=== PATIENT | female | born 1970 | race Caucasian/White ===

== ENCOUNTER → 2018-03-09 11:21 | Outpatient (CLI) | payer OTHER, SELFPAY | PROVIDERS: Family Provider Physician Assistant; PCP Physician Assistant; Visit Provider Physician Assistant | DX: J02.9 Acute pharyngitis, unspecified (principal); R50.9 Fever, unspecified | CPT/HCPCS: 87070 ==

== ENCOUNTER → 2018-04-15 17:32 | Outpatient (CLI) | payer OTHER, SELFPAY | PROVIDERS: Family Provider Physician Assistant; PCP Physician Assistant; Visit Provider Physician Assistant | DX: N30.01 Acute cystitis with hematuria (principal) | CPT/HCPCS: 87077; 87086; 87186 ==

== ENCOUNTER → 2018-04-25 15:22 | Outpatient (CLI) | payer OTHER, SELFPAY | PROVIDERS: Family Provider Physician Assistant; PCP Physician Assistant; Visit Provider Physician Assistant | DX: N39.0 Urinary tract infection, site not specified (principal) | CPT/HCPCS: 87077; 87086; 87186 ==

== ENCOUNTER 2018-04-29 20:43 | Emergency (ER) | payer OTHER, SELFPAY ==
[2018-04-29 20:44] VITALS: BP 136/103; PULSE 110; RESP 16; TEMP 36.9; O2SAT 96; BMI 35.2
--- NOTE | 2018-04-29 21:20 | ED.FEMALEGU ---
HPI - Female Genitourinary General Chief complaint: Urogenital-Female Stated complaint: Bladder Infection Time Seen by Provider: 04/29/18 21:01 Source: patient Mode of arrival: ambulatory Limitations: no limitations History of Present Illness HPI Narrative: Patient is a 47-year-old female with a known urinary tract infection currently on Levaquin also with a longstanding history of kidney stones stating that she has had blood in her urine and passed a stone earlier today. She also has right-sided flank pain which she states feels like another kidney stone. No fevers. Has been taking her antibiotics. No vaginal bleeding. No changes in bowel. Related Data Home Medications Medication Instructions Recorded Confirmed fluconazole 150 mg tablet 150 mg PO AMINS PRN tab 03/09/18 04/25/18 mupirocin 2 % topical ointment 1 applictn TOPICAL TID PRN gram 03/09/18 04/25/18 triamcinolone acetonide 0.5 % 1 applictn TOPICAL TID PRN gram 03/09/18 04/25/18 topical cream valacyclovir 500 mg tablet 1,000 mg PO BID PRN tab 03/09/18 04/25/18 Previous Rx's Medication Instructions Recorded pantoprazole [Protonix] 40 mg PO QDAY #90 tab 03/02/17 metoprolol succinate [Toprol XL] 12.5 mg PO QDAY #45 ter 11/23/17 levofloxacin 250 mg tablet 250 mg PO DAILY 10 Days #10 tab 04/25/18 hydrocodone-acetaminophen 1 tab PO Q4-6H PRN #14 tab 04/29/18 ondansetron 4 mg PO BID-TID PRN #10 tab 04/29/18 tamsulosin 0.4 mg PO DAILY #14 cap 04/29/18 Allergies Allergy/AdvReac Type Severity Reaction Status Date / Time iodine Allergy Intermediate HIVES - Verified 04/25/18 09:47 CONTRAST esomeprazole AdvReac Mild CONSTIPATIO Verified 04/25/18 09:47 N SMZ/TMP REG STRENGTH 400-800 AdvReac Intermediate PT CAN'T Uncoded 03/09/18 10:27 MG REMEMBER SYMPTOM,BUT KNOWS SHE HAD A REACTION TO IT Review of Systems Constitutional Denies fever(s) ENT Ears, Nose, Mouth, and Throat: Denies vertigo and Denies dizziness Cardiovascular Denies chest pain, Denies syncope and Denies dyspnea Respiratory Denies dyspnea Gastrointestinal Gastrointestinal: Reports abdominal pain, Denies change in bowel habits, Reports nausea and Denies vomiting Genitourinary Reports hematuria, Reports dysuria, Reports urinary hesitancy and Reports urinary urgency Musculoskeletal Denies myalgias and Denies arthralgias Integumentary/Breasts Denies lesions and Denies rash Neurologic Denies vertigo, Denies dizziness and Denies syncope Hematologic/Lymphatic Denies easy bleeding and Denies easy bruising [facility] Medical History Essential hypertension (Chronic 08/03/16) Medullary sponge kidney (Chronic) Hyperlipidemia (Chronic) Sjogren's syndrome (Chronic) Sicca complex (Chronic 02/03/11) Gastroesophageal reflux disease (Chronic 02/03/11) History of basal cell carcinoma (BCC) (Resolved) Surgical History Status post delivery Status post hysterectomy Family History Father Diabetes mellitus Hepatitis C Circulation problem Alcoholism /alcohol abuse Mother History of colon cancer Sister Celiac disease Diverticulitis Migraines Social History Smoking Status: Never smoker second hand exposure: No alcohol intake: current (occasionally) substance use type: does not use Exam Initial Vital Signs Initial Vital Signs: Vital Signs Temperature 98.5 F 04/29/18 20:44 Pulse Rate 110 H 04/29/18 20:44 Respiratory Rate 16 04/29/18 20:44 Blood Pressure 136/103 H 04/29/18 20:44 Pulse Oximetry 96 04/29/18 20:44 Resp Effort & Inspection: normal respiratory effort Auscultation: clear to auscultation bilaterally Cardio Rate: tachycardic Rhythm: regular rhythm GI Inspection: non-distended Palpation: soft, No firm and tender (Left flank) Back/Spine/Pelvis Back: CVA tenderness right Skin Lesions: no lesions Rashes: no rashes Neuro General: alert, awake and oriented x3 Cognition: normal cognition Speech: speech normal Extrem General: normal to inspection and capillary refill normal Psych Appearance: grossly normal and well kempt Course Orders Ordered: ED Orders 04/29/18 20:54 Urine Culture Stat Urine Microscopic Stat 04/29/18 21:10 Basic Metabolic Panel Stat Complete Blood Count AUTO DIFF Stat Discontinued Medications Hydrocodone Bitart/Acetaminophen (Vicodin Prepack) 1 bottle MISC SEEINSTR ONE Stop: 04/29/18 23:27 Last Admin: 04/29/18 23:37 Dose: 1 bottle Lidocaine HCl 6.8 ml/ Sodium (Chloride) 56.8 mls @ 340.8 mls/hr IV NOW ONE Stop: 04/29/18 21:21 Last Infusion: 04/29/18 22:25 Dose: 0 mls/hr Admin: 04/29/18 22:05 Dose: 340.8 mls/hr Ketorolac Tromethamine (Toradol) 30 mg IV NOW ONE Stop: 04/29/18 22:01 Last Admin: 04/29/18 22:06 Dose: 30 mg Ondansetron HCl (Zofran Odt Prepack) 1 bottle MISC SEEINSTR ONE Stop: 04/29/18 23:27 Last Admin: 04/29/18 23:37 Dose: 1 bottle Vital Signs - 8 hr 04/29/18 21:54 04/29/18 23:08 04/29/18 23:54 Temperature 98.5 F Pulse Rate 100 H 99 H 99 H Respiratory Rate 16 17 17 Blood Pressure 136/103 H Blood Pressure [Left Arm] 125/90 H 121/85 H Pulse Oximetry 99 97 97 MDM - Female Genitourinary Lab Data Attestation: I reviewed the patient's lab results. Result diagrams: 04/29/18 21:10 04/29/18 21:10 Lab Results 04/29/18 04/29/18 04/29/18 Range/Units 20:54 21:10 21:10 WBC 3.7 L (4.5-11.0) X10^3/uL RBC 4.23 (4.0-5.2) X10^6/uL Hgb 11.8 L (12.0-16.0) g/dL Hct 35.1 L (36-46) % MCV 83.0 (80-100) fL MCH 27.9 (26-34) PG MCHC 33.7 (30-36) % RDW 13.7 (11.6-14.8) % Plt Count 319 (150-400) X10^3/uL Neut % (Auto) 76.4 H (50-75) % Lymph % (Auto) 13.3 L (25-40) % [place] % (Auto) 8.8 (3-14) % Eos % (Auto) 1.1 L (2-4) % Baso % (Auto) 0.4 (0-2) % Neut # (Auto) 2800 L (7264-3931) /uL Sodium 140 (137-145) mmol/L Potassium 4.4 (3.4-5.1) mmol/L Chloride 104 (98-107) mmol/L Carbon Dioxide 23 (22-32) mmol/L BUN 23 H (7-17) mg/dL Creatinine 1.10 H (0.52-1.04) mg/dL Estimated GFR 53.0 L (>60) mL/min BUN/Creatinine Ratio 20.9 (6-22) Glucose 105 H (70-100) mg/dL Calcium 9.4 (8.4-10.2) mg/dL Urine RBC 10-30/hpf H (0-5/HPF) Urine WBC 10-30/hpf H (0-5/HPF) Urine Bacteria Few (2-10) H (None) Ur Culture Indicated? Specimen cultured Micro UA Comment Not Reportable MDM Narrative Medical decision making narrative: Patient with pansensitive E coli growing from the urine culture from a couple days ago. The Levaquin she is on should be appropriate for this. She also has a history of kidney stones. Her creatinine is fairly unremarkable. She was given IV lidocaine and Toradol here in the emergency department which she states greatly improved her symptoms. She has had to have lithotripsy and stents in the past for kidney stones. I discussed this with the patient however today we will hold on a CT scan. Will send her home with instructions to continue the antibiotics. Will also sent home with pain medication and nausea medication. Informed her that if her symptoms do not improve over the next several days or if they worsen or she develops fevers or cannot take her antibiotics that she does need to return to the emergency department. I feel that the right-sided flank pain is consistent with her kidney stones since the patient states that this feels like kidney stone. Consider pyelonephritis however she was still able to tolerate oral antibiotics. Patient and who was at bedside expressed understanding and agreement with plan. Discharge Plan Departure Patient Disposition: Home Clinical Impression: Renal colic on right side, Urinary tract infection Discharge Date/Time: 04/29/18 23:57 Interventions: ED Discharge Assessment Last Done: 04/29/18 23:56 Instructions: DI for Kidney Stones, DI for Urinary Tract Infection (UTI) Activity Restrictions/Additional Instructions: You need to continue the Levaquin that your prescribed for your urinary tract infection. Take the other medication that you were given this evening as directed. Call your primary care doctor on Wednesday for a follow-up. Return to the emergency department for any new symptoms, worsening symptoms, fevers, inability to urinate, worsening abdominal pain, or any other concerning symptoms. Prescriptions: New hydrocodone-acetaminophen 5-325 mg tablet 1 tab PO Q4-6H PRN (Reason: pain) Qty: 14 RF: 0 tamsulosin 0.4 mg capsule 0.4 mg PO DAILY Qty: 14 RF: 0 ondansetron 4 mg tablet,disintegrating 4 mg PO BID-TID PRN (Reason: nausea and vomiting) Qty: 10 RF: 0 No Action levofloxacin 250 mg tablet 250 mg PO DAILY 10 Days Qty: 10 RF: 0 fluconazole [Diflucan] 150 mg tablet 150 mg PO AMINS PRNRF: 0 mupirocin 2 % ointment 1 applictn Topical TID PRNRF: 0 triamcinolone acetonide 0.5 % cream 1 applictn Topical TID PRNRF: 0 valacyclovir 500 mg tablet 1,000 mg PO BID PRNRF: 0 pantoprazole [Protonix] 40 MG tablet,delayed release (DR/EC) 40 mg PO QDAY Qty: 90 RF: 4 metoprolol succinate [Toprol XL] 25 MG tablet extended release 24 hr 12.5 mg PO QDAY Qty: 45 RF: 1
[2018-04-29 21:34] LABS: Bacteria Urine Few (2-10); Culture Indicated Urine Specimen Cultured; RBC Urine 10-30/HPF (0-5/HPF); WBC Urine 10-30/HPF (0-5/HPF)
[2018-04-29 21:36] LABS: BUN Creatinine Ratio 20.9 (6-22); Blood Urea Nitrogen 23 mg/dL (7-17); Calcium 9.4 mg/dL (8.4-10.2); Carbon Dioxide 23 mmol/L (22-32); Chloride 104 mmol/L (98-107); Glucose 105 mg/dL (70-100); Potassium 4.4 mmol/L (3.4-5.1); Sodium 140 mmol/L (137-145)
[2018-04-29 21:40] LABS: Add Manual Diff / Slide Review NO; Basophils Percent Auto 0.4 % (0-2); Eosinophils Percent Auto 1.1 % (2-4); Hematocrit 35.1 % (36-46); Hemoglobin 11.8 g/dL (12.0-16.0); Lymphocytes Percent Auto 13.3 % (25-40); Mean Corpuscular HGB Conc 33.7 % (30-36); Mean Corpuscular Hemoglobin 27.9 PG (26-34); Monocytes Percent Auto 8.8 % (3-14); Neutrophils Absolute Auto 2800 /uL (3000-5900); Neutrophils Percent Auto 76.4 % (50-75); Platelet Count 319 X10^3/uL (150-400); Red Blood Cell Count 4.23 X10^6/uL (4.0-5.2); Red Cell Distribution Width 13.7 % (11.6-14.8); White Blood Cell Count 3.7 X10^3/uL (4.5-11.0)
[2018-04-29 21:44] LABS: HEMOLYSIS 57 (0-50)
[2018-04-29 21:54] VITALS: BP 125/90; PULSE 100; RESP 16; O2SAT 99
[2018-04-29] MEDS: LIDOCAINE 2% 6.8 ML in SODIUM CHLORIDE 0.9% 50 ML 340.8 ML IV (22:05)
[2018-04-29] MEDS: KETOROLAC 60 MG/2 ML VIAL 30 MG IV (22:06)
[2018-04-29 23:08] VITALS: BP 121/85; PULSE 99; RESP 17; O2SAT 97
[2018-04-29] MEDS: ONDANSETRON 4 MG ODT PREPACK 1 BOTTLE MISC (23:37)
[2018-04-29] MEDS: HYDROCODONE/ACET 5/325 PREPACK 1 BOTTLE MISC (23:37)
[2018-04-29 23:54] VITALS: BP 136/103; PULSE 99; RESP 17; TEMP 36.9; O2SAT 97; BMI 35.2
== END 2018-04-29 23:57 | disposition home or self-care (01) ==
PROVIDERS: Emergency Provider Emergency Medicine; Family Provider Physician Assistant; PCP Physician Assistant
DX: N23 Unspecified renal colic (principal); N39.0 Urinary tract infection, site not specified
CPT/HCPCS: 80048; 81003; 81015; 85025; 87077; 87086; 96374; 96375; 99283; 99284; J1885

== ENCOUNTER → 2018-08-02 07:09 | Outpatient (CLI) | payer OTHER, SELFPAY ==
[2018-08-02 08:24] LABS: BUN Creatinine Ratio 22.5 (6-22); Blood Urea Nitrogen 27 mg/dL (7-17); Calcium 9.6 mg/dL (8.4-10.2); Carbon Dioxide 29 mmol/L (22-32); Chloride 105 mmol/L (98-107); Estimated Glomerular Filt Rate 47.9 mL/min (>60); Glucose 98 mg/dL (70-100); HEMOLYSIS < 15 (0-50); Potassium 4.5 mmol/L (3.4-5.1); Sodium 144 mmol/L (137-145)
== END ==
PROVIDERS: PCP Physician Assistant; Visit Provider Physician Assistant
DX: E78.5 Hyperlipidemia, unspecified (principal); I10 Essential (primary) hypertension; M35.00 Sjogren syndrome, unspecified; Q61.5 Medullary cystic kidney
CPT/HCPCS: 36415; 80048

== ENCOUNTER → 2018-09-08 11:24 | Outpatient (CLI) | payer OTHER, SELFPAY ==
[2018-09-08 12:13] LABS: Hematocrit 40.6 % (36-46); Hemoglobin 13.6 g/dL (12.0-16.0); Mean Corpuscular HGB Conc 33.5 % (30-36); Mean Corpuscular Hemoglobin 28.3 PG (26-34); Mean Corpuscular Volume 84.6 fL (80-100); Platelet Count 161 X10^3/uL (150-400); Red Blood Cell Count 4.79 X10^6/uL (4.0-5.2); Red Cell Distribution Width 13.5 % (11.6-14.8)
[2018-09-08 12:26] LABS: BUN Creatinine Ratio 18.3 (6-22); Blood Urea Nitrogen 22 mg/dL (7-17); Calcium 9.8 mg/dL (8.4-10.2); Carbon Dioxide 27 mmol/L (22-32); Chloride 103 mmol/L (98-107); Estimated Glomerular Filt Rate 47.9 mL/min (>60); Glucose 78 mg/dL (70-100); HEMOLYSIS < 15 (0-50); Potassium 4.8 mmol/L (3.4-5.1); Sodium 144 mmol/L (137-145)
[2018-09-08 14:52] LABS: Protein (Total) Urine Random 8 mg/dL (0-12); Protein Creatinine Ratio Urine 0.09 GRAM/24H
== END ==
PROVIDERS: Family Provider Physician Assistant; PCP Physician Assistant; Visit Provider Student in an Organized Health Care Education/Training Program
DX: N05.9 Unspecified nephritic syndrome with unspecified morphologic changes (principal); D70.9 Neutropenia, unspecified; D63.1 Anemia in chronic kidney disease; R80.9 Proteinuria, unspecified
CPT/HCPCS: 36415; 80048; 82570; 84156; 85027

== ENCOUNTER → 2018-10-11 07:28 | Outpatient (CLI) | payer OTHER, SELFPAY ==
[2018-10-11 09:20] LABS: BUN Creatinine Ratio 19.2 (6-22); Blood Urea Nitrogen 25 mg/dL (7-17); Calcium 9.5 mg/dL (8.4-10.2); Carbon Dioxide 26 mmol/L (22-32); Chloride 107 mmol/L (98-107); Estimated Glomerular Filt Rate 43.7 mL/min (>60); Glucose 96 mg/dL (70-100); HEMOLYSIS < 15 (0-50); Potassium 4.5 mmol/L (3.4-5.1); Sodium 140 mmol/L (137-145)
[2018-10-13 14:16] LABS: Parathyroid Hormone Int 35 pg/mL (14-64)
== END ==
PROVIDERS: Family Provider Physician Assistant; PCP Physician Assistant; Visit Provider Student in an Organized Health Care Education/Training Program
DX: N05.9 Unspecified nephritic syndrome with unspecified morphologic changes (principal); N25.81 Secondary hyperparathyroidism of renal origin
CPT/HCPCS: 36415; 80048; 83970

== ENCOUNTER → 2019-01-06 07:35 | Outpatient (CLI) | payer OTHER, SELFPAY ==
--- NOTE | 2019-01-06 | DI.MG.S_ITS ---
BILATERAL DIGITAL SCREENING MAMMOGRAM 3D/2D WITH CAD: 01/06/2019 CLINICAL: Routine screening. Family history of breast cancer. Comparison is made to exams dated: 12/01/2017 mammogram, 11/27/2016 mammogram, and 11/28/2014 mammogram - [facility]. The tissue of both breasts is heterogeneously dense. This may lower the sensitivity of mammography. Current study was also evaluated with a Computer Aided Detection (CAD) system. No significant masses, calcifications, or other findings are seen in either breast. There has been no significant interval change. IMPRESSION: NEGATIVE There is no mammographic evidence of malignancy. A 1 year screening mammogram is recommended. This exam was interpreted at Station ID: [id number]. NOTE: For mammograms, a report in lay terms will be sent to the patient. Approximately 15% of breast malignancies will not be visualized mammographically. In the management of a palpable breast mass, a negative mammogram must not discourage biopsy of a clinically suspicious lesion. Electronically Signed By: Taye estrada/govind:01/06/2019 09:02:57 letter sent: Normal Exam ACR BI-RADS Category 1: Negative [id number]
== END ==
PROVIDERS: Family Provider Physician Assistant; PCP Physician Assistant; Visit Provider Physician Assistant
DX: Z12.31 Encounter for screening mammogram for malignant neoplasm of breast (principal); Z80.3 Family history of malignant neoplasm of breast
CPT/HCPCS: 77063; 77067

== ENCOUNTER → 2019-02-13 10:18 | Outpatient (CLI) | payer OTHER, SELFPAY ==
--- NOTE | 2019-02-13 10:20 | DI.RAD.S_ITS ---
PROCEDURE: XR LUMBAR SPINE MIN 4V INDICATIONS: left sided low back pain with sciatica; hx of Sjorgrens synd TECHNIQUE: 3 views of the lumbar spine were acquired. COMPARISON: [facility], CT, KIDNEY/ URETER/BLADDER, 12/11/2015, 10:13. [facility], CR, KUB XRAY (1 VIEW ABDOMEN), 09/08/2016, 11:05. FINDINGS: Bones: No fracture or focal osseous destruction. Grade 1 anterolisthesis of L4 on L5 and grade 1/2 anterolisthesis L5 on S1. Multilevel degenerative endplate sclerosis and spurring. Diffuse facet arthropathy. Straightening of the normal lordotic curvature. Severe narrowing of the L5-S1 disc space. Lucency projects in the region of the L5 pars interarticularis. Bilateral renal calculi as before IMPRESSION: Probable L5 pars defects, chronic. Grade 1/2 anterolisthesis of L5 on S1 Severe L5-S1 disc degeneration. Diffuse facet arthropathy Dictated by: Myles Deleon M.D. on 02/13/2019 at 13:59 Approved by: Myles Deleon M.D. on 02/13/2019 at 14:02
--- NOTE | 2019-02-13 10:20 | DI.RAD.S_ITS ---
PROCEDURE: XR HIP W PEL IF DONE LT 2V INDICATIONS: left sided low back pain with sciatica; hx of Sjorgrens synd TECHNIQUE: AP pelvis with lateral view(s) of the left hip(s). COMPARISON: None. FINDINGS: Bones: No fractures or dislocations. Pelvic ring appears intact. No suspicious bony lesions. The joint spaces appear grossly preserved. Soft tissues: The visualized bowel gas pattern is normal. No suspicious soft tissue calcifications. IMPRESSION: Overall, unremarkable examination as above. Dictated by: Myles Deleon M.D. on 02/13/2019 at 13:48 Approved by: Myles Deleon M.D. on 02/13/2019 at 13:50
== END ==
PROVIDERS: Family Provider Physician Assistant; PCP Physician Assistant; Visit Provider Physician Assistant
DX: M51.17 Intervertebral disc disorders with radiculopathy, lumbosacral region (principal); M47.26 Other spondylosis with radiculopathy, lumbar region; M43.17 Spondylolisthesis, lumbosacral region; M35.00 Sjogren syndrome, unspecified; N25.0 Renal osteodystrophy; M25.552 Pain in left hip; N20.0 Calculus of kidney
CPT/HCPCS: 72100; 73502

== ENCOUNTER → 2019-02-17 07:20 | Outpatient (CLI) | payer OTHER, SELFPAY ==
[2019-02-17 08:40] LABS: Hemoglobin 13.5 g/dL (12.0-16.0)
[2019-02-17 08:44] LABS: HEMOLYSIS < 15 (0-50); Iron 56 ug/dL (37-170)
[2019-02-17 08:46] LABS: Creatinine Urine Random 115.5 mg/dL; Protein (Total) Urine Random 9 mg/dL (0-12); Protein Creatinine Ratio Urine 0.07 GRAM/24H
[2019-02-17 08:47] LABS: BUN Creatinine Ratio 22.3 (6-22); Blood Urea Nitrogen 29 mg/dL (7-17); Calcium 9.5 mg/dL (8.4-10.2); Carbon Dioxide 28 mmol/L (22-32); Chloride 105 mmol/L (98-107); Estimated Glomerular Filt Rate 43.5 mL/min (>60); Glucose 106 mg/dL (70-100); HEMOLYSIS < 15 (0-50); Potassium 4.2 mmol/L (3.4-5.1); Sodium 140 mmol/L (137-145)
[2019-02-17 08:55] LABS: Percent Iron Saturation 17 % (15-50); Total Iron Binding Capacity 322 ug/dL (265-497); Transferrin 246 mg/dL (206-381)
[2019-02-17 09:19] LABS: Ferritin 59.3 ng/mL (6.27-137)
[2019-02-21 14:01] LABS: Parathyroid Hormone Int 43 pg/mL (14-64)
== END ==
PROVIDERS: PCP Physician Assistant; Visit Provider Student in an Organized Health Care Education/Training Program
DX: N05.9 Unspecified nephritic syndrome with unspecified morphologic changes (principal); D50.0 Iron deficiency anemia secondary to blood loss (chronic); E78.5 Hyperlipidemia, unspecified; N25.81 Secondary hyperparathyroidism of renal origin; R80.9 Proteinuria, unspecified
CPT/HCPCS: 36415; 80048; 82570; 82728; 83540; 83550; 83970; 84156; 85014; 85018

== ENCOUNTER → 2019-02-22 07:14 | Outpatient (CLI) | payer OTHER, SELFPAY ==
--- NOTE | 2019-02-22 07:16 | DI.MRI.S_ITS ---
PROCEDURE: MR LUMBAR SPINE WO CON INDICATIONS: Left sided low back pain w/sciatica; Abnormal xray LS spine TECHNIQUE: Noncontrast sagittal T1 spin echo and T2 fast echo, sagittal STIR, axial T1 and T2 fast spin echo through the lumbar spine. In cases with scoliosis, additional coronal T2 fast spin echo may be performed. COMPARISON: [facility], , XR LUMBAR SPINE MIN 4V, 02/13/2019, 10:24. FINDINGS: Image quality: Excellent. Alignment and Curvature: There is grade 1 L5-S1 spondylolisthesis secondary to bilateral L5 pars interarticularis defects. Bone Marrow: Reactive endplate change is noted adjacent to the L5-S1 disc. No acute vertebral body compression fractures. Spinal Cord: Conus medullaris terminates at the T12-L1 disc level. Visualized cord demonstrates normal signal and size. Paraspinous Soft Tissues: No paravertebral masses. L1-L2: Normal appearance. L2-L3: Normal appearance. L3-L4: Slight loss of disc signal. Minimal, diffuse disc bulge. No central stenosis. No neural foraminal narrowing. No neural impingement. L4-L5: Slight loss of disc signal. Minimal, diffuse disc bulge. Mild right and wdxm-gk-eygwnfnf left facet hypertrophy. No central stenosis. No neural foraminal narrowing. No neural impingement. L5-S1: Loss of disc signal and height. Minimal, diffuse disc bulge. No central stenosis. Moderate right and yylqhzyn-gh-xtzovv left neural foraminal narrowing with slight compression of the exiting left L5 nerve root. IMPRESSION: 1. Grade 1 L5-S1 isthmic spondylolisthesis. 2. Moderate L5-S1 degenerative disc disease. Mild L3-L4 and L4-L5 degenerative disc disease. 3. L4-L5 facet arthropathy. 4. No central stenosis. 5. Moderate right and mfhntcyw-yp-eelusb left L5-S1 neural foraminal narrowing. 6. Slight compression of the exiting left L5 nerve root secondary to left L5-S1 neural foraminal narrowing. Please correlate with clinical data. Dictated by: Faustina Trujillo MD, PhD on 02/22/2019 at 10:33 Approved by: Faustina Trujillo MD, PhD on 02/22/2019 at 10:38
== END ==
PROVIDERS: PCP Physician Assistant; Visit Provider Physician Assistant
DX: M51.16 Intervertebral disc disorders with radiculopathy, lumbar region (principal); M51.17 Intervertebral disc disorders with radiculopathy, lumbosacral region; M47.26 Other spondylosis with radiculopathy, lumbar region; M47.27 Other spondylosis with radiculopathy, lumbosacral region; M43.17 Spondylolisthesis, lumbosacral region; R93.7 Abnormal findings on diagnostic imaging of other parts of musculoskeletal system
CPT/HCPCS: 72148

== ENCOUNTER → 2019-05-19 07:30 | Outpatient (CLI) | payer OTHER, SELFPAY ==
[2019-05-19 08:05] LABS: Hematocrit 39.6 % (36-46); Hemoglobin 13.3 g/dL (12.0-16.0)
[2019-05-19 08:18] LABS: BUN Creatinine Ratio 22.5 (6-22); Blood Urea Nitrogen 27 mg/dL (7-17); Calcium 9.3 mg/dL (8.4-10.2); Carbon Dioxide 27 mmol/L (22-32); Chloride 106 mmol/L (98-107); Estimated Glomerular Filt Rate 47.7 mL/min (>60); Glucose 105 mg/dL (70-100); HEMOLYSIS < 15 (0-50); Potassium 4.7 mmol/L (3.4-5.1); Sodium 139 mmol/L (137-145)
[2019-05-23 17:33] LABS: Parathyroid Hormone Int 58 pg/mL (14-64)
== END ==
PROVIDERS: PCP Physician Assistant; Visit Provider Student in an Organized Health Care Education/Training Program
DX: N05.9 Unspecified nephritic syndrome with unspecified morphologic changes (principal); D64.9 Anemia, unspecified; N25.81 Secondary hyperparathyroidism of renal origin
CPT/HCPCS: 36415; 80048; 83970; 85014; 85018

== ENCOUNTER → 2019-06-05 16:03 | Outpatient (CLI) | payer OTHER, SELFPAY ==
[2019-06-05 17:10] LABS: Hematocrit 40.7 % (36-46); Hemoglobin 13.5 g/dL (12.0-16.0); Mean Corpuscular HGB Conc 33.2 % (30-36); Mean Corpuscular Hemoglobin 28.2 PG (26-34); Mean Corpuscular Volume 84.9 fL (80-100); Platelet Count 194 X10^3/uL (150-400); Red Cell Distribution Width 14.2 % (11.6-14.8); White Blood Cell Count 2.8 X10^3/uL (4.5-11.0)
[2019-06-05 17:58] LABS: BUN Creatinine Ratio 22.3 (6-22); Blood Urea Nitrogen 29 mg/dL (7-17); Calcium 9.6 mg/dL (8.4-10.2); Carbon Dioxide 28 mmol/L (22-32); Chloride 102 mmol/L (98-107); Estimated Glomerular Filt Rate 43.5 mL/min (>60); Glucose 86 mg/dL (70-100); HEMOLYSIS < 15 (0-50); Potassium 5.3 mmol/L (3.4-5.1); Sodium 139 mmol/L (137-145)
== END ==
PROVIDERS: PCP Physician Assistant; Visit Provider Orthopaedic Surgery
DX: Z01.818 Encounter for other preprocedural examination (principal)
CPT/HCPCS: 36415; 80048; 85027; 93005; 93010

== ENCOUNTER 2019-06-30 06:35 | Inpatient (IN) | payer OTHER, SELFPAY ==
[2019-06-19 12:51] VITALS: BMI 36.5
[2019-06-30] VITALS (19 sets, daily range): BP systolic 121–142; BP diastolic 71–96; PULSE 81–113; RESP 12–18; TEMP 35.7–36.6; O2SAT 95–100; BMI 36.7
--- NOTE | 2019-06-30 | DI.RAD.S_ITS ---
PROCEDURE: XR LUMBAR SPINE 2-3V INDICATIONS: L5-S1 TLIF TECHNIQUE: 2 views of the lumbar spine were acquired. COMPARISON: [facility], CR, XR LUMBAR SPINE 2 OR 3 VIEWS, 03/01/2019, 13:53. [facility], MR, MR LUMBAR SPINE WO CON, 02/22/2019, 7:34. [facility], CR, XR LUMBAR SPINE MIN 4V, 02/13/2019, 10:24. FINDINGS: AP and lateral intraoperative fluoroscopic radiographs document the placement of L5-S1 posterior lumbar spinal fusion hardware with transpedicular screws and bilateral stabilizing rods. There is an intervertebral disc spacer device at L5-S1. There is persistent residual anterolisthesis of L5 on S1, similar to comparison exam 03/01/19. IMPRESSION: Intraoperative fluoroscopic radiographs documenting the placement of L5-S1 posterior lumbar spinal fusion hardware and L5-S1 intervertebral disc spacer device. Residual anterolisthesis of L5 on S1 noted. Please see separately dictated operative report for procedural details. Dictated by: Jason Johnson M.D. on 06/30/2019 at 14:40 Approved by: Jason Johnson M.D. on 06/30/2019 at 14:47
--- NOTE | 2019-06-30 07:15 | PM.PREOP ---
Pre-operative Note Interval Note History & Physical reviewed/Exam performed by Physician: Yes Changes to H&P: No
[2019-06-30] MEDS: LACTATED RINGERS 1,000 ML 42 ML IV ×2 (07:24→09:54)
[2019-06-30] MEDS: CEFAZOLIN 2 GM/100 ML FROZ.PIGGY IV ×2 (07:45→16:03)
--- NOTE | 2019-06-30 08:20 | SUR.OPER ---
Prone on spine table, head in foam head support, padded chest and pelvic supports, gel pad at knees, lower legs supported by pillows; nipples, genitalia and toes free of pressure, arms secured on foam padded arm boards at <90 degrees abduction. Tape over blanket at thigh secured to table.
[2019-06-30] MEDS: THROMBIN (RECOMBINANT) 5,000 UNIT VIAL 5000 UNIT TOP (08:26)
[2019-06-30] MEDS: VANCOMYCIN 1,000 MG VIAL 1000 MG TOP (08:27)
[2019-06-30] MEDS: BUPIVACAINE 0.5% (PF) 4 ML, MORPHINE-PF 4 MG, BUTORPHANOL 1 MG, fentaNYL 100 MCG INJ (08:27)
[2019-06-30] MEDS: SODIUM CHLORIDE 0.9% 1,000 ML, GENTAMICIN 80 MG IRR (08:28)
--- NOTE | 2019-06-30 10:43 | CM.DANOTE ---
Addendum entered by Cinthya Vásquez LPN 06/30/19 13:36: Discussed case in Team Rounds. Pt is a 48 year old female who admitted this morning for a planned spinal surgery. Surgeon: Dr. Iglesias. Pt will admit to acute care floor sometime today. PT and OT will be following. Payer: [facility] PCP: Jennifer Perez P: check in tomorrow and continue the assessment process and prn assist with d/c issues and options. Original Note: Discharge Planning/Care Management DCP: assessment: case received, EMR reviewed. CM Discharge Assessment Start: 06/30/19 10:42 Freq: Status: Active Protocol: Document 06/30/19 10:42 ITV (Rec: 06/30/19 10:42 ITV [id number]) Discharge Planning Assessment Advance Directives? No Prior Living Arrangements House Household Members spouse,children Document 06/30/19 10:42 ITV (Rec: 06/30/19 10:42 ITV [id number]) Discharge Planning Assessment Advance Directives? No History Provided By Medical Record Prior Living Arrangements House Household Members spouse,children Review Status In Process Pre-Anesthesia Assessment Start: 06/19/19 12:51 Freq: Status: Active Protocol: Document 06/19/19 12:51 CAB (Rec: 06/19/19 13:31 CAB [id number]) Pre-Anesthesia Assessment Patient Information Reviewed Via Phone Assessment Assessment Completed With Patient Diagnostic Results BMP/CMP,CBC,EKG Comment Labs/EKG @ 06/05/19 Primary Care Provider Melodie Perez Medical Clearance Received Yes Seen Specialist in Last 12 Months Yes Specialist Seen Bezel Cutter,Orthopedist,Sleep specialist Comment Nephrololgy visit 05/24/19 scanned to record. 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 Required No Comment 206lbs Height 160.02 cm Weight 93.44 kg Body Mass Index (BMI) 36.5 Hearing Ability Normal Visual Assist Contacts,Glasses Dentition Type Teeth, Natural Present Barriers to Learning None Other Aids Yes: CPAP Hx Anesthesia Reactions No Hx Family Anesthesia Reaction No: Remote hx for mom, nothing recent Hx Malignant Hyperthermia No Hx Blood Transfusions No Anesthesia Review Requested No alcohol intake current Alcohol Intake Frequency Other: Occasional Smoking Status Never smoker Substance Use Type does not use Pain Present Pain Reported Musculoskeletal Symptoms Abnormal Gait,Back Pain, Difficulty Walking,Joint Stiffness,Limited Range of Motion,Numbness,Radiating Pain into Limb History of Falling (Recent or History of No ) Patient is completely paralyzed or No completely immobile Mental Status Oriented to own ability Is patient on oxygen? No Does patient have MALDONADO/SOB No Hx Sleep Apnea Yes CPAP/BIPAP use prescribed and used routinely Will Bring CPAP/BIPAP DOS Yes Currently Taking a Beta Iván Yes: Metoprolol Can You Climb a Flight of Stairs Without Yes SOB Hx Chest Pain No Hx SOB No Hx Syncope or Dizziness No Anti-Coagulant Therapy No Has a Eyeglass Lens Grinder No Cardiac Testing No Hx Pacemaker/ICD No Pacemaker Rep Required? No Cardiac Clearance Received Not Applicable Diet Type At Home Regular dysphagia No Urinary Catheter Present No Hx Urinary Self Catheterization No Diabetes No Patient No Lactating No Hx Drug Resistant Organism No Presence of External or Internal Medical Yes: CPAP Devices Have you traveled outside the [facility] in the last 30 days? Marital Status Lives With spouse,children Prior Living Arrangements House Number of Floors (Floors) Two Floors Support System Child/Children,Spouse Does the Patient Have Assistance After Yes Surgery Patient Discharge Plan Description Return Home Comment Pt advised a couple days length of stay per surgeon Feels Safe in Current Environment Yes Been Physically Hurt or Threatened By a No Person in Current Environment Do you have thoughts of harming yourself None or others? Are you currently considering suicide? No Do you have a plan to hurt yourself or No Plan others? Do You Have Any Spiritual Beliefs That No May Affect Your HC Choices? Do You Have Any Cultural Practices That No May Affect Your HC Choices? Who Can We Speak to About Patient's Care Family, friends Identifying Code for Release of Patient Declines to issue Information Health Care Proxy/Next of Kin Jose () Health Care Proxy Emergency Contact Name Jose () Emergency Contact Advance Directives? No: Information mailed to patient Requested Patient Bring Advanced Yes Directives DOS PAC Instructions Durable medical equipment, Medications to take/avoid, Nasal antibiotic,No ETOH/ petroleum product on skin DOS, NPO,Post-op transportation,Pre -surgical wash,Sturdy shoes/ comfortable clothes,Do not bring valuables and remove jewelry
--- NOTE | 2019-06-30 10:49 | PM.OP.1 ---
Operative Date/Time/Diagnoses Date of procedure: 06/30/19 Time of procedure: 10:49 Pre-op diagnosis: Lumbar stenosis with radiculopathy Lumbar spondylolisthesis Post-op diagnosis: same Procedure & Clinicians Procedure: L5-S1 Mccormack laminectomy L5-S1 TLIF (post/post interbody fusion) with cage L5, S1 screws Iliac crest bone graft aspirate Use of microscope Placement of epidural catheter Same procedure as scheduled: Yes Indications: [age] year old female with intractable pain from stenosis and listhesis. They had failed conservative management and requested operative intervention. Risks and benefits of surgery were discussed and appropriate consents were obtained. Surgeon: Feliciano Iglesias Fire Prevention Specialist: Esthela Lindsay Anesthesia Type: General Operative Notes Findings: None Closure Type: primary Specimen(s): none sent Prosthetic devices, grafts, tissues, transplants, or devices: NuVasive MAS Reline screws Globus Rise cage Applied: catheter Estimated Blood Loss (mL): 30 Procedure in detail: The patient was brought to the operating room and intubated on the table. A time-out was performed. They were then rolled over to the well-padded Marco A table in the prone position. Preoperative antibiotics were given. The back was prepped and draped in the standard sterile fashion. Using fluoroscopy, a 4 cm longitudinal incision was made to the right of the midline. We used Bovie to come down to and split the lumbodorsal fascia. Using fluoroscopy and monitoring, we then percutaneously placed Jamshidi needles down the pedicles of L5 and S1 on the right side. These were changed out to guidewires and then we tapped and then placed the NuVasive MAS Reline screw shanks. We then opened up the retractors and used Bovie to clear up the posterolateral gutter as well as medially along the lamina to the spinous processes. A bur was used to decorticate the transverse process of L5 and the sacral ala. We brought in the microscope. Using a combination of bur and Kerrison rongeurs, a Mccormack laminectomy was performed from the right side. We had extensive decompression as we had removed the hypertrophic pars defect as well as the facet. At the end of this we could trace out the L5 nerve root from the dura all the way out along the neural foramen until everything was wide open. We then went to the left side. Another 4 cm longitudinal incision was made. We used Bovie to split the fascia. Using fluoroscopy and monitoring we again percutaneously placed Jamshidi needles down the left pedicles of L5 and S1. These were changed over guidewires, tapped and the screws were placed. We cleared out the gutter and decorticated the L5 transverse process and the sacral ala. We cleared out medially. We then began the left-hand side of the Mccormack laminectomy. Again using a combination of bur and Kerrison rongeur so we completed the laminectomy well past the midline. We removed all the hypertrophic pars defect as well as the facet. At the end we could trace out the L5 nerve root. This was separate and distinct from the TLIF approach as we had extensive decompressive work bilaterally along the hypertrophic pars defects and this required a complete Mccormack laminectomy. We then began the TLIF prep. We carefully cleaned up the remainder of the foramen until we could easily retract the exiting root as well as clearing medially below the dura and expose the disc space. The disc was prepped with bipolar and then an annulotomy was performed. We performed a diskectomy using a combination of paddles, jody, pituitaries, and curettes. We distracted the disc using a paddle and locked the retractor in an open position. We did not get much reduction of the spondylolisthesis but had excellent elevation and height. We then filled the disc space with Osteocel bone graft. We then placed the globus Rise cage under fluoroscopy and then filled this in with more bone graft. This completed the posterior interbody fusion portion of the TLIF at L5-S1. We then placed the screw heads, nayeli, and locked down the set screws on both sides. The wounds were copiously irrigated. A small stab incision was made over the PSIS. We used a Jamshidi needle to aspirate several mL of bone marrow from the pelvis. This was mixed with the remaining Osteocel and combined with all of the locally harvested bone graft and placed in the posterolateral gutter bilaterally for the posterior fusion of the TLIF at L5-S1. An epidural catheter was then placed in the spinal canal by carefully depressing the dura and advancing it 6 cm cephalad under the remaining lamina without resistance. The muscle fascia was closed on both sides. The catheter was then injected with a solution containing 4 mL of 0.5% Marcaine, 1 mg Stadol, 4 mg Duramorph, and 100 mcg of fentanyl. This was injected without resistance and the catheter was pulled. The wounds were irrigated. Vancomycin powder was placed in the wounds. The superficial and skin were closed. A sterile dressing was placed. The patient was then rolled over extubated and brought to recovery room without complications. Complications: none Post-operative Condition: stable Disposition: PACU Plan for aftercare: Inpatient. Up with therapy.
[2019-06-30] MEDS: HYDROMORPHONE 2 MG INJ 0.5 MG IV ×2 (11:18→11:26)
--- NOTE | 2019-06-30 11:30 | SUR.PHASEI ---
Pt noted to have what appears to be bruising/irritation from adhesive tape used to secure neuro monitors to bilateral thighs and lower legs. Discussed with [employer] Sawyer and MD Fink. Will report to nurse receiving pt in acute care.
[2019-06-30] MEDS: hydrOXYzine pamoate 25 MG CAPSULE PO (11:40)
[2019-06-30] MEDS: OXYCODONE/ACETAMINOPHEN 5/325 TABLET 1 TAB PO (11:40)
--- NOTE | 2019-06-30 12:30 | SUR.PHASEI ---
Pt transferred to room 227 via bed with all belongings. Last vital signs stable with pain tolerable; see flowsheet documentation for details. Report given to LAN Schwab prior to transfer. Josselin at bedside upon arrival to room 227; handoff assessment completed. LAN Schwab to assume care of pt at this time.
[2019-06-30] MEDS: ONDANSETRON 4 MG/2 ML INJ IV ×2 (12:50→16:03)
[2019-06-30] MEDS: LACTATED RINGERS 1,000 ML 125 ML IV ×2 (13:57→23:11)
[2019-06-30] MEDS: METOCLOPRAMIDE 10 MG/2 ML INJ IV ×2 (13:58→20:36)
--- NOTE | 2019-06-30 15:43 | PC.NURSE ---
Ortho: Nausea minutes after return to the floor. Zofran given and she felt a little better. Dozing off, c-pap not applied per RT - risk of asp if still has nausea and vomits. O2 is on at 2L NC and sats have been as high as 99%. Spouse at bedside and he is reassuring to her. Back dressing is intact. ALLISON is in place and grn light is flashing. Denies any sensation changes to the ext's. Call light is in reach. Cont w/poc.
--- NOTE | 2019-06-30 16:39 | PT.IPTN ---
Current Diagnoses Spondylolisthesis, lumbar region (06/30/19) Spinal stenosis, lumbar region with neurogenic claudication (06/30/19) Strain of muscle, fascia and tendon of lower back, subsequent encounter (06/30/19) Surgery Performed Operation Date: 06/30/19 07:45 Actual Procedures p L5-S1 Laminectomy & Instrumented fusion bone w/bone graft - Feliciano Iglesias MD Physical Therapy Treatment Note M3 PT-IP Subjective Start: 06/30/19 16:35 Freq: NEEDED Status: Active Protocol: Document 06/30/19 16:36 AB (Rec: 06/30/19 16:39 AB [id number]) Subjective Physical Therapy Visit Type Type Patient Refusal Notes pt c/o nausea and does not want to do PT at this time but agreed to do it tomorrow.
[2019-06-30] MEDS: METOPROLOL ER 25 MG TABLET 12.5 MG PO (20:41)
--- NOTE | 2019-06-30 21:06 | PC.NURSE ---
Pt is A and O x 4. VSS. Sero sanguineous drainage on ALLISON dressing covering approx 1/2 of dressing from top to bottom, noted 2 hours into shift and no more for the remainder of shift. ALLISON green light on for all of shift. Pt has been very nauseous, vomiting even sips of water, getting mild relief from Zofran and Reglan given alternately. Pt has been able to sleep.
[2019-07-01] VITALS (13 sets, daily range): BP systolic 106–147; BP diastolic 60–87; PULSE 72–144; RESP 16–20; TEMP 36.4–39.3; O2SAT 91–98
[2019-07-01] MEDS: CEFAZOLIN 2 GM/100 ML FROZ.PIGGY IV (00:46)
--- NOTE | 2019-07-01 01:15 | PC.NURSE ---
Shift note: Received pt from evening shift. Pt AxOx3, can make needs known. No c/o nausea/vomiting at time of assessment, no c/o pain at time of assessment. ALLISON dressing in place, monitor box is flashing green. Will continue to monitor.
[2019-07-01 05:28] LABS: Hematocrit 33.7 % (36-46); Hemoglobin 11.1 g/dL (12.0-16.0)
--- NOTE | 2019-07-01 09:06 | PM.PNPO.1 ---
Subjective Subjective Date Patient Seen: 07/01/19 Time Patient Seen: 09:06 Interval history: She is doing great. Minimal discomfort across the back. No leg pain. She was nauseated overnight Exam Vital Signs (past 8 hours): - 07/01/19 03:13 07/01/19 08:00 Temperature 97.6 F 98.5 F Pulse Rate 84 89 Respiratory Rate 17 18 Blood Pressure 106/60 106/68 Pulse Oximetry 98 98 Oxygen Delivery Method Room Air,CPAP Oxygen Flow Rate 0 Const Orientation: alert and oriented x3 Back/Spine/Pelvis Other: CDI. 5/5 motor both lower extremities Objective Labs Result Diagrams: 07/01/19 05:06 Labs: Laboratory Results - last 24 hr 07/01/19 05:06 Hgb 11.1 L Hct 33.7 L Assessment & Plan Post-op Postoperative Procedures: Procedures Operation Date: 06/30/19 07:45 Actual Procedures Side Surgeon p L5-S1 Laminectomy & Instrumented fusion bone w/bone graft Feliciano Iglesias MD She is doing great. Mobilized with physical therapy. Anticipate discharge home tomorrow.
[2019-07-01] MEDS: PANTOPRAZOLE 40 MG TABLET PO (09:33)
[2019-07-01] MEDS: DOCUSATE 100 MG CAPSULE PO ×2 (09:33→20:02)
--- NOTE | 2019-07-01 10:03 | PT.IIE ---
Current Diagnoses Spondylolisthesis, lumbar region (06/30/19) Spinal stenosis, lumbar region with neurogenic claudication (06/30/19) Strain of muscle, fascia and tendon of lower back, subsequent encounter (06/30/19) Surgery Performed Operation Date: 06/30/19 07:45 Actual Procedures p L5-S1 Laminectomy & Instrumented fusion bone w/bone graft - Feliciano Iglesias MD Surgical History (Last Updated 06/19/19 @ 13:11 by Milla Gregory RN) Hx of lithotripsy (Resolved) Hx of tubal ligation (Acute) Status post delivery Status post hysterectomy Medical History (Last Updated 06/19/19 @ 13:12 by Milla Gregory RN) Anemia (Acute) Asthma (Acute) BCC (basal cell carcinoma) (Acute) Chickenpox (Resolved) CKD (chronic kidney disease) (Chronic) Essential hypertension (Chronic 08/03/16) Gastroesophageal reflux disease (Chronic 02/03/11) History of basal cell carcinoma (BCC) (Inactive) History of nephrolithiasis (Resolved) HTN (hypertension) (Acute) Hyperlipidemia (Chronic) Leukopenia (Acute) Medullary sponge kidney (Chronic) MANNY on CPAP (Acute) Recurrent UTI (urinary tract infection) (Chronic) Scarlet fever (Resolved ~1978) Sicca complex (Chronic 02/03/11) Sjogren's syndrome (Chronic) Spinal stenosis (Acute) Thrombocytopenia (Acute) Physical Therapy Inpatient Evaluation/Re-Eval M1 PT/OT-IP Prior Functional Status Start: 06/30/19 16:35 Freq: NEEDED Status: Active Protocol: Document 07/01/19 10:03 AB (Rec: 07/01/19 15:05 AB [id number]) Medical Review Prior Functional Status Medical History Reviewed Yes Diet/Fluid Consistency Regular Communication able to make needs known Mobility and Gait per spouse: pt is indpeendent with all mobilities and ambulation without AD Social History Household Members spouse,children Living Arrangements House Number of Floors (Floors) Two Floors Number of Stairs To Enter/Railing? has 2 steps to enter without rails; has 13 steps to get to 2nd floor bed room with L rail ascending. 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 spouse stated that they have access to a SPC if pt needs one M2 PT-IP Current Condition Start: 06/30/19 16:35 Freq: NEEDED Status: Active Protocol: Document 07/01/19 10:03 AB (Rec: 07/01/19 15:05 AB [id number]) Physical Therapy Current Condition Current Condition Evaluation Date 07/01/19 Treatment Diagnosis L5S1 TLIF; difficulty in walking Onset Date 06/30/19 Precautions Lumbar Precautions Log Roll,No Twisting,Limit Bending,Lifting Restriction of 10 lbs,Gait Belt above Incisional Area M3 PT-IP Subjective Start: 06/30/19 16:35 Freq: NEEDED Status: Active Protocol: Document 07/01/19 10:03 AB (Rec: 07/01/19 15:05 AB [id number]) Subjective Physical Therapy Visit Type Type Initial Evaluation Visit Start Time 10:03 Visit Stop Time 10:43 Total Visit Minutes 40 Number of RUG WEAVER Visits 0 Physical Therapy Visit Comments Patient Comments pt agreeable to do PT Therapy Pain Assessment Pain When Pain Assessed At Rest Pain Present Pain Present Denied Pain M4 PT-IP Mobility and Gait Start: 06/30/19 16:35 Freq: NEEDED Status: Active Protocol: Document 07/01/19 10:03 AB (Rec: 07/01/19 15:05 AB [id number]) PT-Bed Mobility Assessment Rolling Type of Rolling Log Rolling Level of Assist Minimal Assistance Supine to Sit Supine to Sit Minimal Assistance,1 Person Assistance PT-Transfer Assessment Sit to and From Stand Sit to and from Stand Minimal Assistance,1 Person Assistance,Use of Upper Extremities Equipment Transfer Assistive Device Gait Belt,Front Wheeled Walker Orthotic/Prosthetic Devices or Brace: No Transfers Transfer Destination Chair Transfer Technique pt ambulated using FWW Transfer Ability Level of Assist Minimal Assistance,1 Person Assistance Comments Mobility Comments pt completed supine to sit min A and cues. BP in supine: 120/77. c/o slight dizziness on initial sitting. BP: 114/ 73. completed sit to stand min A and cues and ambulated in room. agreed to sit up on chair after ambualtion. positioned on chair. call light and table placed within reach. BP after transfer sitting on chair: 126/82 Gait Assessment Gait Gait Assistance Required: Minimum Assistance Distance (Feet) 20 Able to Maintain Weight Bearing Status Yes During Gait Assistive Devices Assistive Device Gait Belt,Front Wheeled Walker Orthotic/Prosthetic Devices or Brace: No Gait Deviations General Gait Pattern Antalgic,Decreased Stride Length,Decreased Feet Clearance Factors Limiting Gait Function Factors Limiting Gait Function Decreased Activity Tolerance, Decreased Strength,Limited Range of Motion,Pain,Poor Balance PT-Balance Assessment Sitting Balance and Reactions Static Sitting Balance Ability Good Dynamic Sitting Balance Ability Good Standing Balance and Reactions Static Standing Balance Ability Fair Dynamic Standing Balance Ability Fair Device Used FWW M5 PT-IP Objective Assessments Start: 06/30/19 16:35 Freq: NEEDED Status: Active Protocol: Document 07/01/19 10:03 AB (Rec: 07/01/19 15:05 AB [id number]) Orientation Orientation/Cognition Level of Alertness Alert Orientation Name,Age,Place,Situation Language Function Ability No Deficits Noted Safety Awareness Understands Safety Issues Memory Description No Deficits Noted Gross Range of Motion Lower Extremity ROM Assessment Within Functional Limits Strength Lower Extremity Strength Assessment Bilaterally Impaired Hip 4-/5 Knee 4-/5 Coordination Assessment Gross Coordination Gross Coordination WNL Sensation Assessment Sensation Gross Sensation WNL Muscle Tone Muscle Tone WNL Yes M6 PT-IP Treatment Start: 06/30/19 16:35 Freq: NEEDED Status: Active Protocol: Document 07/01/19 10:03 AB (Rec: 07/01/19 15:05 AB [id number]) Physical Therapy Treatment Education Education Provided Precautions,Weight Bearing Status,Post-Op Packet,Safety M7 PT-IP Assessment and Plan Start: 06/30/19 16:35 Freq: NEEDED Status: Active Protocol: Document 07/01/19 10:03 AB (Rec: 07/01/19 15:05 AB [id number]) PT Summary Assessment and Plan Potential Rehabilitation Potential Good Status of Condition at Evaluation Stable Summary Impairments Pain,ROM,Strength,Balance,Bed Mobility,Transfers,Gait, Activity Tolerance Assessment Summary pt requiring min A with mobility and will likely progress during hospital stay. caregiver training and stair climbing training will be conducted when appropriate. pt plans to go home and spouse will be off work for a few weeks to assist pt at home. Goals Bed Mobility Goal Standby Assistance Transfer Goal Standby Assistance,Front Wheeled Walker Gait Goal Standby Assistance,Front Wheel Walker Gait Distance 200 Other Goals up/down 2 steps using SPC/SPREADER BOX OPERATOR up/down 13 steps using L rail ascending Days to Meet Goals 5 Frequency of Treatment Frequency Of Treatment Twice a Day Treatment Plan Physical Therapy Treatment Plan Bed Mobility Training,Transfer Training,Gait Training, Therapeutic Exercise,Balance Retraining,Post Op Education, Discharge Planning,Hot or Cold Pack,Neuromuscular Re-ed, Coordination Retraining,Manual Therapy Recommendations To Nursing Amount of Assist Needed 1 Person Assist Discharge Recommendations PT Discharge Recommendations Home with Assistance
[2019-07-01] MEDS: hydrOXYzine pamoate 25 MG CAPSULE PO ×3 (10:14→20:02)
[2019-07-01] MEDS: OXYCODONE IR 5 MG TABLET 10 MG PO ×3 (10:15→17:28)
--- NOTE | 2019-07-01 11:04 | CM.DPC ---
DCP: continued: case discussed in Team Rounds and EMR reviewed. Dr. Iglesias saw pt today, noted she was improving. She was unable to work with PT yesterday due to nausea. PT and OT will see her today. Dr. Iglesias anticipates pt will be ready for d/c to home setting tomorrow. Will check in with pt and follow prn for needs after she is able to work with therapy.
--- NOTE | 2019-07-01 12:05 | OT.IP.EVAL ---
Current Diagnoses Spondylolisthesis, lumbar region (06/30/19) Spinal stenosis, lumbar region with neurogenic claudication (06/30/19) Strain of muscle, fascia and tendon of lower back, subsequent encounter (06/30/19) Surgery Performed Operation Date: 06/30/19 07:45 Actual Procedures p L5-S1 Laminectomy & Instrumented fusion bone w/bone graft - Feliciano Iglesias MD Past Medical History (Last Updated 06/19/19 @ 13:12 by Milla Gregory RN) Anemia (Acute) Asthma (Acute) BCC (basal cell carcinoma) (Acute) Chickenpox (Resolved) CKD (chronic kidney disease) (Chronic) Essential hypertension (Chronic 08/03/16) Gastroesophageal reflux disease (Chronic 02/03/11) History of basal cell carcinoma (BCC) (Inactive) History of nephrolithiasis (Resolved) HTN (hypertension) (Acute) Hyperlipidemia (Chronic) Leukopenia (Acute) Medullary sponge kidney (Chronic) MANNY on CPAP (Acute) Recurrent UTI (urinary tract infection) (Chronic) Scarlet fever (Resolved ~1978) Sicca complex (Chronic 02/03/11) Sjogren's syndrome (Chronic) Spinal stenosis (Acute) Thrombocytopenia (Acute) Surgical History (Last Updated 06/19/19 @ 13:11 by Milla Gregory RN) Hx of lithotripsy (Resolved) Hx of tubal ligation (Acute) Status post delivery Status post hysterectomy Occupational Therapy Inpatient Evaluation/Re-Eval M1 PT/OT-IP Prior Functional Status Start: 06/30/19 16:35 Freq: NEEDED Status: Active Protocol: Document 07/01/19 16:36 CGR (Rec: 07/01/19 16:48 CGR [email or web address]) Medical Review Prior Functional Status Medical History Reviewed Yes Diet/Fluid Consistency Regular Communication able to make needs known Mobility and Gait per spouse: pt is indpeendent with all mobilities and ambulation without AD Activities of Daily Living and IADL's Pt was IND with all ADLs. Social History Household Members spouse,children Living Arrangements House Number of Floors (Floors) Two Floors Number of Stairs To Enter/Railing? 2 steps to enter without rail and 13 steps up to the second floor with railing on one side . 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 M2 OT-IP Current Condition Start: 07/01/19 16:36 Freq: Status: Active Protocol: Document 07/01/19 16:36 CGR (Rec: 07/01/19 16:48 CGR [email or web address]) Occupational Therapy Current Condition Current Condition Evaluation Date 07/01/19 Treatment Diagnosis L5-S1 lami and fusion Diagnosis Onset Date 06/30/19 Post Operative Precautions Lumbar Precautions Log Roll,No Twisting,Limit Bending,Lifting Restriction of 10 lbs,Gait Belt above Incisional Area M3 OT- IP Subjective and Pain Start: 07/01/19 16:36 Freq: Status: Active Protocol: Document 07/01/19 16:36 CGR (Rec: 07/01/19 16:48 CGR [email or web address]) OT- Subjective Occupational Therapy Visit Type Type Initial Evaluation Visit Start Time 11:16 Visit Stop Time 12:05 Total Visit Minutes 49 Occupational Therapy Visit Comments Patient Comments Pt states she is feeling better today. OT Pain Assessment Pain When Pain Assessed At Rest Pain Present Pain Present Pain Reported Location lower back Intensity 3 Scale Used Numeric (1 - 10) Management Techniques Distraction,Re-positioning M4 OT- IP ADL's Start: 07/01/19 16:36 Freq: Status: Active Protocol: Document 07/01/19 16:36 CGR (Rec: 07/01/19 16:48 CGR [email or web address]) OT [facility] General Evaluation Self-Feeding Ability Independent OT ADL-Grooming General Evaluation Grooming Ability Standby Assistance Areas Needing Assistance Retrieving/Set-up of Grooming Items,Face Washing Comments OT Grooming Comments standing at sink OT ADL-Oral Care General Eval Oral Care Ability Standby Assistance Comments Oral Care Comments standing at sink OT ADL-Dressing General Eval Lower Body Dressing Ability Standby Assistance Areas Needing Assistance Socks Assistive Devices Dressing Assistive Devices Service Technician Copier,Sock Aid Comments OT Dressing Comments Pt educated on use of judicial registrar and sock aide for LB dressing and performed without difficulty. Provided with hip kit. OT ADL-Toileting General Evaluation Toileting Ability Independent Comments OT Toileting Comments seated on toilet OT ADL-Bathing Comments OT Bathing Comments not assessed in this session. M5 OT- IP IADL's Start: 07/01/19 16:36 Freq: Status: Active Protocol: Document 07/01/19 16:36 CGR (Rec: 07/01/19 16:48 CGR [email or web address]) OT-Instrumental Activities of Daily Living Deficits IADL Deficits Identified No Deficits Home Safety Awareness Awareness of Need for Assistance at Home Good Awareness Ability to Problem Solve Emergency Able to Problem Solve Situations Medication Management Medication Management No Deficits Identified Money Management Money Management No Deficits Identified Meal Preparation Meal Preparation No Deficits Identified Bottle Line Worker Bottle Line Worker No Deficits Identified Driving Driving Comments 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 OT- IP Functional Cognition Start: 07/01/19 16:36 Freq: Status: Active Protocol: Document 07/01/19 16:36 CGR (Rec: 07/01/19 16:48 CGR [email or web address]) Cognitive Factors Limiting Selfcare Function Cognitive Ability Level of Alertness Alert Patient Orientation Name,Age,Birthday,Month,Date, Year,Day of Week,Place, Situation Attention Span Ability Capable of Focused Attention, Capable of Sustained Attention Ability to Follow Commands Able to Follow One Step Commands,Able to Follow Multi- Step Commands Memory Description No Deficits Noted Safety Awareness No Deficits Noted Problem Solving Ability No deficits Noted Executive Function Ability No Deficits Noted Abstract Thinking Ability No Deficits Noted OT- Vision and Hearing OT- Hearing Assessment OT- Hearing Assessment WFL OT- Vision Assessment Visual Acuity WFL Visual Attentiveness WFL Occular Pursuits WFL Visual Convergence WFL Visual Nieves WFL M7 OT- IP Mobility and Balance Start: 07/01/19 16:36 Freq: Status: Active Protocol: Document 07/01/19 16:36 CGR (Rec: 07/01/19 16:48 CGR [email or web address]) OT-Transfer Assessment Sit to and From Stand Sit to and from Stand Standby Assistance Transfers Transfer Ability Standby Assistance Technique Transfer Destination Chair,Toilet Transfer Technique Stand Step Pivot Devices Transfer Assistive Devices Gait Belt,Front Wheeled Walker Comments Mobility Comments mobility around the room for ADLs. OT- Balance Assessment Sitting Balance and Reactions Static Sitting Balance Ability Good Dynamic Sitting Balance Ability Fair M8 OT- IP Objective Assessments Start: 07/01/19 16:36 Freq: Status: Active Protocol: Document 07/01/19 16:36 CGR (Rec: 07/01/19 16:48 CGR [email or web address]) OT Gross Range of Motion Upper Extremity Range of Motion Assessment Within Functional Limits OT Strength Upper Extremity Strength Assessment Within Functional Limits Comments Strength Comments 4/5 OT- Coordination Assessment Upper Extremity Finger to Nose Test Within Functional Limits Finger Tapping Test Within Functional Limits OT-Muscle Tone Assessment Muscle Tone WNL Yes OT Sensation Assessment Comments Summary Comments No deficits Edema Edema Absent M9 OT- IP Assessment and Plan Start: 07/01/19 16:36 Freq: Status: Active Protocol: Document 07/01/19 16:36 CGR (Rec: 07/01/19 16:48 CGR [email or web address]) OT Summary Assessment and Plan Potential Rehabilitation Potential Excellent Analytic Complexity at Evaluation Low Summary OT Impairments Pain,Functional Mobility, Dressing,Bathing,Shower Transfers Progress Towards Goals Progressing Toward Goals Assessment Summary Pt presents as a low priority evaluation. Pt is progressing with her ADLs and functional mobility and will likely be safe for discharge home with family support. No DME needs. Goals Dressing Goal Independent,Service Technician Copier,Sock Aid Bathing Goal Independent Shower Transfer Goal Independent Days to Meet Goals 1 Frequency of Treatment Frequency Of Treatment Once a Day Treatment Plan OT Treatment Plan ADL Training,Functional Mobility,Patient/Family Education,Discharge Planning Other Treatment Recommendations and Next shower and dressing Treatment Focus Discharge Recommendations OT Discharge Recommendations Home with Assistance Home Equipment Needs none
--- NOTE | 2019-07-01 13:53 | PC.NURSE ---
Pt has been oob , up in the recliner chair, stood to have [facility] drsg changed to back incision site as the current drsg is saturated w ser/sang fluid Pt maryjo well. Pt requests the IVF to be turned off. [id number] Dr berrios notified of drsg change & dc of IV fluids.
--- NOTE | 2019-07-01 15:25 | PT.IPTN ---
Current Diagnoses Spondylolisthesis, lumbar region (06/30/19) Spinal stenosis, lumbar region with neurogenic claudication (06/30/19) Strain of muscle, fascia and tendon of lower back, subsequent encounter (06/30/19) Surgery Performed Operation Date: 06/30/19 07:45 Actual Procedures p L5-S1 Laminectomy & Instrumented fusion bone w/bone graft - Feliciano Iglesias MD Physical Therapy Treatment Note M2 PT-IP Current Condition Start: 06/30/19 16:35 Freq: NEEDED Status: Active Protocol: Document 07/01/19 10:03 AB (Rec: 07/01/19 15:05 AB [id number]) Physical Therapy Current Condition Current Condition Evaluation Date 07/01/19 Treatment Diagnosis L5S1 TLIF; difficulty in walking Onset Date 06/30/19 Precautions Lumbar Precautions Log Roll,No Twisting,Limit Bending,Lifting Restriction of 10 lbs,Gait Belt above Incisional Area M3 PT-IP Subjective Start: 06/30/19 16:35 Freq: NEEDED Status: Active Protocol: Document 07/01/19 15:20 GGD (Rec: 07/01/19 15:50 GGD [id number]) Subjective Physical Therapy Visit Type Type Treatment Note Visit Start Time 15:02 Visit Stop Time 15:25 Total Visit Minutes 23 Number of RELIGION TEACHER Visits 1 Physical Therapy Visit Comments Patient Comments Pt willing to work with PT. Therapy Pain Assessment Pain When Pain Assessed At Rest Pain Present Pain Present Denied Pain M4 PT-IP Mobility and Gait Start: 06/30/19 16:35 Freq: NEEDED Status: Active Protocol: Document 07/01/19 15:20 GGD (Rec: 07/01/19 15:50 GGD [id number]) PT-Bed Mobility Assessment Rolling Type of Rolling Log Rolling Level of Assist Contact Guard Assistance Supine to Sit Supine to Sit Minimal Assistance,1 Person Assistance Sit to Supine Sit to Supine Minimal Assistance,1 Person Assistance Scooting Scooting to Edge of Bed Standby Assistance PT-Transfer Assessment Sit to and From Stand Sit to and from Stand Minimal Assistance,1 Person Assistance,Use of Upper Extremities Equipment Transfer Assistive Device Gait Belt,Front Wheeled Walker Orthotic/Prosthetic Devices or Brace: No Transfers Transfer Destination Bed Transfer Ability Level of Assist Contact Guard Assistance, Minimal Assistance,1 Person Assistance,Use of Upper Extremities Gait Assessment Gait Gait Assistance Required: Contact Guard Assist,1 Person Assist Distance (Feet) 130 Able to Maintain Weight Bearing Status Yes During Gait Assistive Devices Assistive Device Gait Belt,Front Wheeled Walker Orthotic/Prosthetic Devices or Brace: No Gait Deviations General Gait Pattern Antalgic,Decreased Stride Length,Decreased Feet Clearance Factors Limiting Gait Function Factors Limiting Gait Function Decreased Activity Tolerance, Decreased Strength,Limited Range of Motion,Pain,Poor Balance M5 PT-IP Objective Assessments Start: 06/30/19 16:35 Freq: NEEDED Status: Active Protocol: Document 07/01/19 10:03 AB (Rec: 07/01/19 15:05 AB [id number]) Orientation Orientation/Cognition Level of Alertness Alert Orientation Name,Age,Place,Situation Language Function Ability No Deficits Noted Safety Awareness Understands Safety Issues Memory Description No Deficits Noted Gross Range of Motion Lower Extremity ROM Assessment Within Functional Limits Strength Lower Extremity Strength Assessment Bilaterally Impaired Hip 4-/5 Knee 4-/5 Coordination Assessment Gross Coordination Gross Coordination WNL Sensation Assessment Sensation Gross Sensation WNL Muscle Tone Muscle Tone WNL Yes M6 PT-IP Treatment Start: 06/30/19 16:35 Freq: NEEDED Status: Active Protocol: Document 07/01/19 15:20 GGD (Rec: 07/01/19 15:50 GGD [id number]) Physical Therapy Treatment Education Education Provided Precautions,Safety M7 PT-IP Assessment and Plan Start: 06/30/19 16:35 Freq: NEEDED Status: Active Protocol: Document 07/01/19 15:20 GGD (Rec: 07/01/19 15:50 GGD [id number]) PT Summary Assessment and Plan Summary Assessment Summary Pt improving with gait. She was able to progress gait distance. Pt needed less assist with sit to stand. Pt did need min A with bed mobility. Pt will need stair and caregiver training before D/C. Frequency of Treatment Frequency Of Treatment Twice a Day Treatment Plan Physical Therapy Treatment Plan Bed Mobility Training,Transfer Training,Gait Training, Therapeutic Exercise,Balance Retraining,Post Op Education, Discharge Planning,Hot or Cold Pack,Neuromuscular Re-ed, Coordination Retraining,Manual Therapy Recommendations To Nursing Amount of Assist Needed 1 Person Assist Discharge Recommendations PT Discharge Recommendations Home with Assistance
[2019-07-01] MEDS: diazePAM 5 MG TABLET PO (18:42)
[2019-07-01] MEDS: ACETAMINOPHEN 325 MG TABLET 650 MG PO (20:01)
[2019-07-01] MEDS: SENNOSIDES 8.6 MG TABLET 17.2 MG PO (20:02)
[2019-07-01] MEDS: GABAPENTIN 300 MG CAPSULE PO (20:02)
[2019-07-01] MEDS: METOPROLOL ER 25 MG TABLET 12.5 MG PO (20:05)
[2019-07-01] MEDS: ALBUTEROL/IPRATROPIUM 3 ML AMPUL 6 ML INH (23:34)
[2019-07-02] VITALS (9 sets, daily range): BP systolic 108–144; BP diastolic 62–85; PULSE 79–120; RESP 18–20; TEMP 36.6–38.3; O2SAT 94–98
--- NOTE | 2019-07-02 00:35 | DI.US.S_ITS ---
PROCEDURE: US PERIPH VENOUS LOW EXTREM BI INDICATIONS: BILAT LEG SWELLING DVT TECHNIQUE: Real-time imaging, as well as color and pulse Doppler interrogation, were performed of the deep veins of both legs from the inguinal ligament to the popliteal fossa. COMPARISON: None. FINDINGS: Right: The common femoral, femoral and popliteal veins are normally compressible, and free of intraluminal thrombus. Color and pulse Doppler demonstrate normal phasic intravascular flow. There is normal augmentation response to distal compression maneuver. Left: The common femoral, femoral and popliteal veins are normally compressible, and free of intraluminal thrombus. Color and pulse Doppler demonstrate normal phasic intravascular flow. There is normal augmentation response to distal compression maneuver. IMPRESSION: No deep venous thrombosis in either lower extremity. Note: No discrepancy present in the preliminary report. Dictated by: Marcos Barreto M.D. on 07/02/2019 at 7:16 Approved by: Marcos Barreto M.D. on 07/02/2019 at 7:18
[2019-07-02] MEDS: ACETAMINOPHEN 325 MG TABLET 650 MG PO ×2 (00:46→08:54)
[2019-07-02] MEDS: OXYCODONE IR 5 MG TABLET 10 MG PO ×4 (00:46→16:37)
--- NOTE | 2019-07-02 02:32 | PC.NURSE ---
Shift note: Received pt from evening shift. Pt with HR in 140's at time of assessment. Pt denied s/sx of tachycardia, no SOB or chest pain, lung sounds diminished throughout. Orders from Dr Iglesias to get STAT U/S to r/o DVT and breathing treatment. RT attempted to perform treatment but aborted when pt's HR adeel to 150's. Dr Iglesias made aware of pt's increased HR, no new orders. U/S performed, results show no impression of DVT, EKG performed which showed sinus tach. Will call Dr Iglesias with results. Pt's heart rate is now 118 @ 0235. Medicated pt previously with 650mg PO APAP for temp of 100.9 and 10mg PO Oxycodone for elevated HR when pain reported at 2/10. Heart rate responded some by dropping 30+ points. Encouraged pt to use IS, able to do five repetitions at 2250 with good ability and able to give several coughs that were dry. Legs are soft and compressible, no edema or redness noted. Coordinator made aware of pt's status. Pt on continous pulse ox to monitor HR, pt using CPAP with RA for saturation of 96%. [place] to gravity, bed alarm active and functioning. Will continue to monitor for changes.
[2019-07-02] MEDS: hydrOXYzine pamoate 25 MG CAPSULE PO ×2 (08:53→20:54)
[2019-07-02] MEDS: DOCUSATE 100 MG CAPSULE PO ×2 (08:54→20:54)
[2019-07-02] MEDS: PANTOPRAZOLE 40 MG TABLET PO (08:54)
--- NOTE | 2019-07-02 10:13 | PM.PNPO.1 ---
Subjective Subjective Date Patient Seen: 07/02/19 Time Patient Seen: 10:13 Interval history: Rough night last night. She was having more pain and her heart rate was up to 140 and was running a fever.. This resolved overnight and she is feeling much better today. However back pain has been increasing it is about a 5/10. No leg pain Exam Vital Signs (past 8 hours): - 07/02/19 02:21 07/02/19 05:40 07/02/19 08:00 Temperature 97.8 F 99 F 99.0 F Pulse Rate 104 H 109 H Respiratory Rate 18 18 Blood Pressure 108/62 142/83 H Pulse Oximetry 96 98 Fraction of Inspired Oxygen 21 Oxygen Delivery Method Room Air Oxygen Flow Rate 0 Const Orientation: alert and oriented x3 Back/Spine/Pelvis Other: CDI. 5/5 motor both lower extremities Objective Labs Result Diagrams: 07/01/19 05:06 Assessment & Plan Post-op Postoperative Procedures: Procedures Operation Date: 06/30/19 07:45 Actual Procedures Side Surgeon p L5-S1 Laminectomy & Instrumented fusion bone w/bone graft Feliciano Iglesias MD No evidence of DVT on her ultrasound and her symptoms have resolved, I do not think this was a PE. Most likely this was respiratory. As she is mobilizing more today I think this will take care of the problem. However, I would like to keep her overnight to make sure everything is stable and plan for discharge tomorrow.
--- NOTE | 2019-07-02 13:21 | PT.IPTN ---
Current Diagnoses Spondylolisthesis, lumbar region (06/30/19) Spinal stenosis, lumbar region with neurogenic claudication (06/30/19) Strain of muscle, fascia and tendon of lower back, subsequent encounter (06/30/19) Surgery Performed Operation Date: 06/30/19 07:45 Actual Procedures p L5-S1 Laminectomy & Instrumented fusion bone w/bone graft - Feliciano Iglesias MD Physical Therapy Treatment Note M2 PT-IP Current Condition Start: 06/30/19 16:35 Freq: NEEDED Status: Active Protocol: Document 07/01/19 10:03 AB (Rec: 07/01/19 15:05 AB [id number]) Physical Therapy Current Condition Current Condition Evaluation Date 07/01/19 Treatment Diagnosis L5S1 TLIF; difficulty in walking Onset Date 06/30/19 Precautions Lumbar Precautions Log Roll,No Twisting,Limit Bending,Lifting Restriction of 10 lbs,Gait Belt above Incisional Area M3 PT-IP Subjective Start: 06/30/19 16:35 Freq: NEEDED Status: Active Protocol: Document 07/02/19 10:21 CLB (Rec: 07/02/19 13:20 CLB [id number]) Subjective Physical Therapy Visit Type Type Treatment Note Visit Start Time 10:21 Visit Stop Time 10:49 Total Visit Minutes 30 Notes Pt present for CG training. Number of POSTAL CARRIER Visits 2 Physical Therapy Visit Comments Patient Comments Pt willing to work with PT. Therapy Pain Assessment Pain When Pain Assessed At Rest Pain Present Pain Present Pain Reported Location lower back Intensity 5 Scale Used Numeric (1 - 10) Pain Management Techniques Modification of Treatment,Re- positioning,Timing of Activity with Medications M4 PT-IP Mobility and Gait Start: 06/30/19 16:35 Freq: NEEDED Status: Active Protocol: Document 07/02/19 10:21 CLB (Rec: 07/02/19 13:20 CLB [id number]) PT-Bed Mobility Assessment Rolling Type of Rolling Log Rolling Level of Assist Contact Guard Assistance Supine to Sit Supine to Sit Minimal Assistance,1 Person Assistance Sit to Supine Sit to Supine Minimal Assistance,1 Person Assistance Scooting Scooting to Edge of Bed Standby Assistance PT-Transfer Assessment Sit to and From Stand Sit to and from Stand Contact Guard Assistance,1 Person Assistance,Use of Upper Extremities Equipment Transfer Assistive Device Gait Belt,Front Wheeled Walker Orthotic/Prosthetic Devices or Brace: No Transfers Transfer Destination Bed Transfer Ability Level of Assist Contact Guard Assistance, Minimal Assistance,1 Person Assistance,Use of Upper Extremities Gait Assessment Gait Gait Assistance Required: Standby Assistance Distance (Feet) 350 Able to Maintain Weight Bearing Status Yes During Gait Assistive Devices Assistive Device Gait Belt,Front Wheeled Walker Orthotic/Prosthetic Devices or Brace: No Gait Deviations General Gait Pattern Antalgic,Decreased Stride Length,Decreased Feet Clearance Factors Limiting Gait Function Factors Limiting Gait Function Decreased Activity Tolerance, Decreased Strength,Limited Range of Motion,Pain Comments Gait Comments Pt able to ambulate to therapy stairs ~350ft SBA. Pt reported decrease in pain with gait. Stair Climbing Assessment Evaluation Level of Assist On Stairs Contact Guard Assistance Devices Stair Climbing Assistive Devices Left Railing Technique/Endurance Stair Climbing Direction Ascend and Descend Stair Climbing Technique Step to Step Number of Steps Climbed 3 Stair Climbing Set # Repetitions (reps) 1 Comments Stair Climbing Comments Pt will require continued stair training as pt will need to climb 13 steps once a day to get to bedroom and shower. M5 PT-IP Objective Assessments Start: 06/30/19 16:35 Freq: NEEDED Status: Active Protocol: Document 07/01/19 10:03 AB (Rec: 07/01/19 15:05 AB [id number]) Orientation Orientation/Cognition Level of Alertness Alert Orientation Name,Age,Place,Situation Language Function Ability No Deficits Noted Safety Awareness Understands Safety Issues Memory Description No Deficits Noted Gross Range of Motion Lower Extremity ROM Assessment Within Functional Limits Strength Lower Extremity Strength Assessment Bilaterally Impaired Hip 4-/5 Knee 4-/5 Coordination Assessment Gross Coordination Gross Coordination WNL Sensation Assessment Sensation Gross Sensation WNL Muscle Tone Muscle Tone WNL Yes M6 PT-IP Treatment Start: 06/30/19 16:35 Freq: NEEDED Status: Active Protocol: Document 07/01/19 15:20 GGD (Rec: 07/01/19 15:50 GGD [id number]) Physical Therapy Treatment Education Education Provided Precautions,Safety M7 PT-IP Assessment and Plan Start: 06/30/19 16:35 Freq: NEEDED Status: Active Protocol: Document 07/02/19 10:21 CLB (Rec: 07/02/19 13:20 CLB [id number]) PT Summary Assessment and Plan Summary Assessment Summary Pt improving with all mobility and recalled 3/3 precautions. Pt's present for tx and will be able to assist pt at home.Left pt in bed with alarm on, call light within reach and SCD's on bilateral feet. Goals Bed Mobility Goal Standby Assistance Transfer Goal Standby Assistance,Front Wheeled Walker Gait Goal Standby Assistance,Front Wheel Walker Gait Distance 200 Other Goals up/down 2 steps using SPC/POTATO PEELER up/down 13 steps using L rail ascending Days to Meet Goals 5 Frequency of Treatment Frequency Of Treatment Twice a Day Treatment Plan Physical Therapy Treatment Plan Bed Mobility Training,Transfer Training,Gait Training, Therapeutic Exercise,Balance Retraining,Post Op Education, Discharge Planning,Hot or Cold Pack,Neuromuscular Re-ed, Coordination Retraining,Manual Therapy Recommendations To Nursing Amount of Assist Needed 1 Person Assist Discharge Recommendations PT Discharge Recommendations Home with Assistance
--- NOTE | 2019-07-02 14:08 | PT.IPTN ---
Current Diagnoses Spondylolisthesis, lumbar region (06/30/19) Spinal stenosis, lumbar region with neurogenic claudication (06/30/19) Strain of muscle, fascia and tendon of lower back, subsequent encounter (06/30/19) Surgery Performed Operation Date: 06/30/19 07:45 Actual Procedures p L5-S1 Laminectomy & Instrumented fusion bone w/bone graft - Feliciano Iglesias MD Physical Therapy Treatment Note M2 PT-IP Current Condition Start: 06/30/19 16:35 Freq: NEEDED Status: Active Protocol: Document 07/01/19 10:03 AB (Rec: 07/01/19 15:05 AB [id number]) Physical Therapy Current Condition Current Condition Evaluation Date 07/01/19 Treatment Diagnosis L5S1 TLIF; difficulty in walking Onset Date 06/30/19 Precautions Lumbar Precautions Log Roll,No Twisting,Limit Bending,Lifting Restriction of 10 lbs,Gait Belt above Incisional Area M3 PT-IP Subjective Start: 06/30/19 16:35 Freq: NEEDED Status: Active Protocol: Document 07/02/19 13:45 CLB (Rec: 07/02/19 15:10 CLB [id number]) Subjective Physical Therapy Visit Type Type Treatment Note Visit Start Time 13:45 Visit Stop Time 14:08 Total Visit Minutes 23 Number of COTTON PICKING MACHINE OPERATOR Visits 3 Physical Therapy Visit Comments Patient Comments Pt willing to work with PT. Therapy Pain Assessment Pain When Pain Assessed During Mobility Pain Present Pain Present Pain Reported Location lower back Intensity 2 Scale Used Numeric (1 - 10) M4 PT-IP Mobility and Gait Start: 06/30/19 16:35 Freq: NEEDED Status: Active Protocol: Document 07/02/19 13:45 CLB (Rec: 07/02/19 15:10 CLB [id number]) PT-Transfer Assessment Sit to and From Stand Sit to and from Stand Standby Assistance,1 Person Assistance,Use of Upper Extremities Equipment Transfer Assistive Device Gait Belt,Front Wheeled Walker Orthotic/Prosthetic Devices or Brace: No Transfers Transfer Destination Chair,Toilet Transfer Ability Level of Assist Standby Assistance,1 Person Assistance,Use of Upper Extremities Comments Mobility Comments Pt's able to assist pt to BR. Gait Assessment Gait Gait Assistance Required: Standby Assistance Distance (Feet) 370 Able to Maintain Weight Bearing Status Yes During Gait Assistive Devices Assistive Device Gait Belt,Front Wheeled Walker Orthotic/Prosthetic Devices or Brace: No Gait Deviations General Gait Pattern Antalgic,Decreased Stride Length,Decreased Feet Clearance Factors Limiting Gait Function Factors Limiting Gait Function Decreased Activity Tolerance, Decreased Strength,Limited Range of Motion,Pain Comments Gait Comments Pt able to ambulate ~370ft in griffin to room after stair training. Pt with good safety awareness, provided CGA. Stair Climbing Assessment Evaluation Level of Assist On Stairs Contact Guard Assistance Devices Stair Climbing Assistive Devices Left Railing Technique/Endurance Stair Climbing Direction Ascend and Descend Stair Climbing Technique Step to Step Number of Steps Climbed 3 Stair Climbing Set # Repetitions (reps) 4 Comments Stair Climbing Comments Pt able to climb three sets of stairs with CELL TENDER HELPER and use of left rail. able to provide all assist for pt. M5 PT-IP Objective Assessments Start: 06/30/19 16:35 Freq: NEEDED Status: Active Protocol: Document 07/01/19 10:03 AB (Rec: 07/01/19 15:05 AB [id number]) Orientation Orientation/Cognition Level of Alertness Alert Orientation Name,Age,Place,Situation Language Function Ability No Deficits Noted Safety Awareness Understands Safety Issues Memory Description No Deficits Noted Gross Range of Motion Lower Extremity ROM Assessment Within Functional Limits Strength Lower Extremity Strength Assessment Bilaterally Impaired Hip 4-/5 Knee 4-/5 Coordination Assessment Gross Coordination Gross Coordination WNL Sensation Assessment Sensation Gross Sensation WNL Muscle Tone Muscle Tone WNL Yes M6 PT-IP Treatment Start: 06/30/19 16:35 Freq: NEEDED Status: Active Protocol: Document 07/01/19 15:20 GGD (Rec: 07/01/19 15:50 GGD [id number]) Physical Therapy Treatment Education Education Provided Precautions,Safety M7 PT-IP Assessment and Plan Start: 06/30/19 16:35 Freq: NEEDED Status: Active Protocol: Document 07/02/19 13:45 CLB (Rec: 07/02/19 15:10 CLB [id number]) PT Summary Assessment and Plan Summary Progress Towards Goals Progressing Toward Goals Assessment Summary Pt recall 3/3 precautions. Pt able to ambulate ~370ft while provided CGA. Pt's able to provide CGA during stair training and assisted pt in BR. Pt seems able to d/c home with husbands assist when medically stable. Goals Bed Mobility Goal Standby Assistance Transfer Goal Standby Assistance,Front Wheeled Walker Gait Goal Standby Assistance,Front Wheel Walker Gait Distance 200 Other Goals up/down 2 steps using SPC/CELL TENDER HELPER up/down 13 steps using L rail ascending Days to Meet Goals 5 Frequency of Treatment Frequency Of Treatment Twice a Day Treatment Plan Physical Therapy Treatment Plan Bed Mobility Training,Transfer Training,Gait Training, Therapeutic Exercise,Balance Retraining,Post Op Education, Discharge Planning,Hot or Cold Pack,Neuromuscular Re-ed, Coordination Retraining,Manual Therapy Recommendations To Nursing Amount of Assist Needed 1 Person Assist Discharge Recommendations PT Discharge Recommendations Home with Assistance
--- NOTE | 2019-07-02 16:25 | CM.DPC ---
DCP: continued: DAE Schwab worked for 2 sessions with pt today and notes that pt did very well. Plan is for home with spouse to assist. Likely tomorrow.
[2019-07-02] MEDS: MAGNESIUM HYDROXIDE 30 ML UDC PO (16:47)
[2019-07-02] MEDS: METOPROLOL ER 25 MG TABLET 12.5 MG PO (20:52)
[2019-07-02] MEDS: GABAPENTIN 300 MG CAPSULE PO (20:54)
[2019-07-02] MEDS: SENNOSIDES 8.6 MG TABLET 17.2 MG PO (20:54)
[2019-07-02] MEDS: diazePAM 5 MG TABLET PO (20:56)
--- NOTE | 2019-07-02 20:58 | PC.NURSE ---
Pt has + BT x 4, states things are moving but not passing gas. Is eating moderate amounts. Gave 30mLs of Milk of Mag this shift and 120 mLs prune juice. She also go her scheduled 100 mg Docusate po, and 17.2 mg Senna po. She is ambulating in hallway approx 3 x/24 hours, using her IS, is afebrile but HR is occ in 120-140s. aware.
[2019-07-03] VITALS: BP 131/86; PULSE 122; RESP 16; TEMP 38.2; O2SAT 97
[2019-07-03 00:53] VITALS: TEMP 37.2
[2019-07-03 01:23] VITALS: PULSE 110
[2019-07-03] MEDS: hydrOXYzine pamoate 25 MG CAPSULE PO (02:19)
[2019-07-03] MEDS: OXYCODONE IR 5 MG TABLET 10 MG PO ×2 (02:19→08:33)
[2019-07-03 05:00] VITALS: BP 106/74; PULSE 102; RESP 16; TEMP 37.2; O2SAT 92
--- NOTE | 2019-07-03 06:40 | PC.NURSE ---
Pt reported pain x1 overnight at surgical sited/back/RLE cramping. Oxycodone given with good effect. Denies nausea/gas pains. Pt dressing to back CDI. Osito drain in place, flashing light. Osito dressing with small dime size dark red drainage on right upper side. Slight tachycardic tonight to 122. BP 132/86. Pt denies dizziness when standing. tmax on carla shift 100.2, overnight tmax 99.0. Ultrasound done yesterday to r/o DVT as fevers syptoms, results negative. Monitoring for fever, PRN tylenol for fevers. Pt compliant with IS. Supportive spouse at bedside. Await BM, multiple stool meds given yesterday.
[2019-07-03 07:30] VITALS: BP 123/80; PULSE 102; RESP 17; TEMP 37; O2SAT 92
--- NOTE | 2019-07-03 07:55 | P.PN_ITS ---
Subjective Subjective Date Patient Seen: 07/03/19 Time Patient Seen: 07:55 Interval history: Pain is under control but she is getting spasms in the left buttock and left thigh. Doing well with physical therapy and mobilizing independently. Exam Vital Signs (past 8 hours): - 07/03/19 00:00 07/03/19 00:53 07/03/19 01:23 Temperature 100.7 F H 99.0 F Pulse Rate 122 H 110 H Respiratory Rate 16 Blood Pressure 131/86 Pulse Oximetry 97 07/03/19 05:00 07/03/19 07:30 Temperature 98.9 F 98.6 F Pulse Rate 102 H 102 H Respiratory Rate 16 17 Blood Pressure 106/74 123/80 Pulse Oximetry 92 92 Fraction of Inspired Oxygen 21 Oxygen Delivery Method CPAP Oxygen Flow Rate 0 Const Orientation: alert and oriented x3 Back/Spine/Pelvis Other: CDI. 5/5 motor both lower extremities Objective Labs Result Diagrams: 07/01/19 05:06 Assessment & Plan Post-op Postoperative Procedures: Procedures Operation Date: 06/30/19 07:45 Actual Procedures Side Surgeon p L5-S1 Laminectomy & Instrumented fusion bone w/bone graft Feliciano Iglesias MD she is doing very well. Plan to discharge home later today. She is getting some left leg radiculopathy and I am going to give her a [address] IV st eroids. Discharge after steroids and physical therapy.
--- NOTE | 2019-07-03 07:56 | PM.DS.1 ---
History of Present Illness History of Present Illness Date Patient Seen: 07/03/19 Time Patient Seen: 07:56 Chief complaint: L5-S1 laminectomy & instrumented fusion *$150 copa Narrative: 48-year-old female with spinal stenosis and grade 2 spondylolisthesis. She failed therapy, medication and epidural injections. Discharge Providers Provider Date of admission: 06/30/19 06:35 Discharge Date: 07/03/19 Primary care physician: Melodie Perez PA-C Consults: 06/30/19 07:10 Consult to Respiratory Therapy Evaluate & Treat Comment: Physician Instructions: Evaluate and treat 06/30/19 12:47 Consult to Occupational Therapy Evaluate & Treat Comment: Physician Instructions: Evaluate and treat Consult to Physical Therapy Evaluate & Treat Comment: Physician Instructions: Evaluate and Treat Discharge provider: Feliciano Iglesias MD Summary Hospital Course Discharge Diagnosis: Lumbar stenosis and spondylolisthesis Hospital Course: She was brought to the operating room on 06/30/19. She underwent a Mccormack laminectomy and instrumented fusion at L5-S1. Postoperatively she did well and mobilized well with physical therapy. Pain was under good control with oral medications. She did have some radiculopathy but this was treated with a dose of IV steroids. Status at Discharge Cognitive/behavioral status at discharge: oriented Functional status at discharge: uses cane/walker Overall status at discharge: patient is progressing back to baseline Exam Vital Signs (past 8 hours): - 07/03/19 00:00 07/03/19 00:53 07/03/19 01:23 Temperature 100.7 F H 99.0 F Pulse Rate 122 H 110 H Respiratory Rate 16 Blood Pressure 131/86 Pulse Oximetry 97 07/03/19 05:00 07/03/19 07:30 Temperature 98.9 F 98.6 F Pulse Rate 102 H 102 H Respiratory Rate 16 17 Blood Pressure 106/74 123/80 Pulse Oximetry 92 92 Fraction of Inspired Oxygen 21 Oxygen Delivery Method CPAP Oxygen Flow Rate 0 Const Orientation: alert and oriented x3 Back/Spine/Pelvis Other: CDI. 5/5 motor both lower extremities Objective Labs Result Diagrams: 07/01/19 05:06 Discharge Plan Discharge Plan Patient Disposition: Home Discharge comment: Follow-up 1.5 weeks Discharge Med Rec/Prescriptions Prescriptions: New docusate sodium [DOK] 100 mg Capsule 100 mg PO BID PRN (Reason: constipation) Qty: 30 RF: 0 hydroxyzine pamoate 25 mg Capsule 25 mg PO Q4HR PRN (Reason: spasms) Qty: 20 RF: 0 oxycodone 5 mg Tablet 5 mg PO Q3HR PRN (Reason: Pain, Moderate (4-6)) Qty: 25 RF: 0 Continued fluconazole [Diflucan] 150 mg tablet 150 mg PO PRN PRN (Reason: Yeast infection) RF: 0 valacyclovir 500 mg tablet 1,000 mg PO BID PRN (Reason: cold sores) Qty: 30 RF: 0 triamcinolone acetonide 0.5 % cream 1 applictn TOP TID PRN (Reason: Rash on arm) RF: 0 potassium citrate 10 mEq (1,080 mg) tablet extended release 15 meq PO QPM RF: 0 metoprolol succinate [Toprol XL] 25 mg tablet extended release 24 hr 12.5 mg PO BEDTIME RF: 0 acetaminophen [Tylenol Extra Strength] 500 mg Tablet 1,000 mg PO Q6H PRN (Reason: Pain) RF: 0 pantoprazole 40 mg tablet,delayed release (DR/EC) 40 mg PO DAILY RF: 0 Follow up/Referrals: Melodie Perez PA-C [Primary Care Provider] - Provider Discharge Instructions Diet: Diet as Tolerated Activity: limited BLT 10 lbs max Skin/Wound/Dressing Care Report to your healthcare provider any signs of infection, such as:: chills, fever, night sweats, increased pain, unusual drainage and unusual redness Dressing: may change and shower POD#5 Visit Report/Discharge Packet Instructions: DI for Transforaminal Lumbar Interbody Fusion Stand Alone Forms: Surgery Discharge Discharge Data Primary Care Provider: Melodie Perez
[2019-07-03] MEDS: DEXAMETHASONE 10 MG/ML VIAL IV (08:33)
[2019-07-03] MEDS: DOCUSATE 100 MG CAPSULE PO (08:34)
[2019-07-03] MEDS: PANTOPRAZOLE 40 MG TABLET PO (08:34)
--- NOTE | 2019-07-03 08:59 | PT.IPTN ---
Current Diagnoses Spondylolisthesis, lumbar region (06/30/19) Spinal stenosis, lumbar region with neurogenic claudication (06/30/19) Strain of muscle, fascia and tendon of lower back, subsequent encounter (06/30/19) Surgery Performed Operation Date: 06/30/19 07:45 Actual Procedures p L5-S1 Laminectomy & Instrumented fusion bone w/bone graft - Feliciano Iglesias MD Physical Therapy Treatment Note M2 PT-IP Current Condition Start: 06/30/19 16:35 Freq: NEEDED Status: Active Protocol: Document 07/01/19 10:03 AB (Rec: 07/01/19 15:05 AB [id number]) Physical Therapy Current Condition Current Condition Evaluation Date 07/01/19 Treatment Diagnosis L5S1 TLIF; difficulty in walking Onset Date 06/30/19 Precautions Lumbar Precautions Log Roll,No Twisting,Limit Bending,Lifting Restriction of 10 lbs,Gait Belt above Incisional Area M3 PT-IP Subjective Start: 06/30/19 16:35 Freq: NEEDED Status: Active Protocol: Document 07/03/19 08:47 CLB (Rec: 07/03/19 09:42 CLB [id number]) Subjective Physical Therapy Visit Type Type Treatment Note Visit Start Time 08:47 Visit Stop Time 08:59 Total Visit Minutes 12 Number of PROGRAM DEVELOPMENT MANAGER Visits 4 Physical Therapy Visit Comments Patient Comments Pt willing to walk but needing to use BR first. Therapy Pain Assessment Pain When Pain Assessed During Mobility Pain Present Pain Present Pain Reported M4 PT-IP Mobility and Gait Start: 06/30/19 16:35 Freq: NEEDED Status: Active Protocol: Document 07/03/19 08:47 CLB (Rec: 07/03/19 09:42 CLB [id number]) PT-Bed Mobility Assessment Sit to Supine Sit to Supine Standby Assistance Scooting Scooting Up and Down in Bed Standby Assistance PT-Transfer Assessment Sit to and From Stand Sit to and from Stand Standby Assistance,1 Person Assistance,Use of Upper Extremities Equipment Transfer Assistive Device Gait Belt,Front Wheeled Walker Orthotic/Prosthetic Devices or Brace: No Transfers Transfer Destination Bed,Chair,Toilet Transfer Ability Level of Assist Standby Assistance,1 Person Assistance,Use of Upper Extremities Comments Mobility Comments Pt's able to assist pt to BR. Gait Assessment Gait Gait Assistance Required: Standby Assistance Distance (Feet) 140 Able to Maintain Weight Bearing Status Yes During Gait Assistive Devices Assistive Device Gait Belt,Front Wheeled Walker Orthotic/Prosthetic Devices or Brace: No Gait Deviations General Gait Pattern Antalgic,Decreased Stride Length,Decreased Feet Clearance Factors Limiting Gait Function Factors Limiting Gait Function Decreased Activity Tolerance, Decreased Strength,Limited Range of Motion,Pain Comments Gait Comments Pt with more pain this morning but was able to walk ~140ft SBA. M5 PT-IP Objective Assessments Start: 06/30/19 16:35 Freq: NEEDED Status: Active Protocol: Document 07/01/19 10:03 AB (Rec: 07/01/19 15:05 AB [id number]) Orientation Orientation/Cognition Level of Alertness Alert Orientation Name,Age,Place,Situation Language Function Ability No Deficits Noted Safety Awareness Understands Safety Issues Memory Description No Deficits Noted Gross Range of Motion Lower Extremity ROM Assessment Within Functional Limits Strength Lower Extremity Strength Assessment Bilaterally Impaired Hip 4-/5 Knee 4-/5 Coordination Assessment Gross Coordination Gross Coordination WNL Sensation Assessment Sensation Gross Sensation WNL Muscle Tone Muscle Tone WNL Yes M6 PT-IP Treatment Start: 06/30/19 16:35 Freq: NEEDED Status: Active Protocol: Document 07/01/19 15:20 GGD (Rec: 07/01/19 15:50 GGD [id number]) Physical Therapy Treatment Education Education Provided Precautions,Safety M7 PT-IP Assessment and Plan Start: 06/30/19 16:35 Freq: NEEDED Status: Active Protocol: Document 07/03/19 08:47 CLB (Rec: 07/03/19 09:42 CLB [id number]) PT Summary Assessment and Plan Summary Assessment Summary Pt doing well with all activites with assisting. Pt with increased pain this morning but was able to perform all mobility SBA with good safety awareness and aware to follow back precautions. Pt able to d/c home with when medically stable. Goals Bed Mobility Goal Standby Assistance Transfer Goal Standby Assistance,Front Wheeled Walker Gait Goal Standby Assistance,Front Wheel Walker Gait Distance 200 Other Goals up/down 2 steps using SPC/AUTOMOTIVE PRODUCTION WORKER up/down 13 steps using L rail ascending Days to Meet Goals 5 Frequency of Treatment Frequency Of Treatment Twice a Day Treatment Plan Physical Therapy Treatment Plan Bed Mobility Training,Transfer Training,Gait Training, Therapeutic Exercise,Balance Retraining,Post Op Education, Discharge Planning,Hot or Cold Pack,Neuromuscular Re-ed, Coordination Retraining,Manual Therapy Recommendations To Nursing Amount of Assist Needed 1 Person Assist Discharge Recommendations PT Discharge Recommendations Home with Assistance
--- NOTE | 2019-07-03 09:47 | PC.NURSE ---
Addendum entered by Lexus Mahajan R.N. 07/03/19 11:51: DC - scripts were given to spouse to fill prior to discharge, cleared by phys therapy, pain managed with earlier oxycodone, reviewed dc instructions with pt and spouse, copies provided, belongings gathered, including cell phone, data integration analyst, clothing, glasses, cpap, tsf to and electrical estimator escorted to spouse's car. Original Note: AM NOTE - pt is alert, states back and l hip pain 3 on scale 0/10, john dsg w/small spot shadow drainage within margins, green light flashing, Dr. Iglesias in and pt to dc home, called re dsg and new order rec'd to change to coversite, dsg removed, parallel sutured incisions intact, some bruising, no drainage, removed the dsg over skin tear below r scapula and replaced with allevyn, oxycodone given at breakfast and providing adequate relief, discussed constipation and narcotics, given tommie this am, did have senna and prune juice carla, passing flatus, declined addl laxatives this am, spouse will milk pickup driver addl laxatives, script for tommie provided, hr is reg 96.
== END 2019-07-03 11:15 | disposition home or self-care (01) | DRG 455 ==
PROVIDERS: Admitting Provider Orthopaedic Surgery; PCP Physician Assistant; Visit Provider Orthopaedic Surgery
PROC: 0SG30AJ Fusion of Lumbosacral Joint with Interbody Fusion Device, Posterior Approach, Anterior Column, Open Approach (ICD-10-PCS; principal; 2019-06-30 07:45)
DX: M48.062 Spinal stenosis, lumbar region with neurogenic claudication (principal); M43.16 Spondylolisthesis, lumbar region; I10 Essential (primary) hypertension; K21.9 Gastro-esophageal reflux disease without esophagitis; G47.33 Obstructive sleep apnea (adult) (pediatric); M35.00 Sjogren syndrome, unspecified; M54.10 Radiculopathy, site unspecified; M79.89 Other specified soft tissue disorders
CPT/HCPCS: 36415; 72100; 76000; 85014; 85018; 93005; 93970; 94640; 94760; 94762; 97116; 97161; 97165; 97530; 97535; C1776; J0330; J0595; J0690; J1100; J1170; J2250; J2274; J2405; J2704; J2765; J3010

== ENCOUNTER → 2019-12-12 07:48 | Outpatient (CLI) | payer OTHER, SELFPAY ==
[2019-06-30 13:22] VITALS: BMI 36.7
[2019-12-12 08:25] LABS: Creatinine Urine Random 89.6 mg/dL; Protein (Total) Urine Random 12 mg/dL (0-12); Protein Creatinine Ratio Urine 0.13 GRAM/24H
[2019-12-12 08:46] LABS: Hematocrit 40.8 % (36-46); Hemoglobin 13.5 g/dL (12.0-16.0)
[2019-12-12 08:56] LABS: Alanine Aminotransferase 23 IU/L (<35); Albumin 4.3 g/dL (3.5-5.0); Albumin Globulin Ratio 1.2 (1.0-2.8); Alkaline Phosphatase 102 U/L (38-126); Aspartate Aminotransferase 27 IU/L (14-36); BUN Creatinine Ratio 19.8 (6-22); Bilirubin Total 0.6 mg/dL (0.2-1.3); Blood Urea Nitrogen 26 mg/dL (7-17); Calcium 9.6 mg/dL (8.4-10.2); Carbon Dioxide 26 mmol/L (22-32); Chloride 106 mmol/L (98-107); Cholesterol 227 mg/dL (140-199); Globulin 3.6 g/dL (1.7-4.1); Glucose 118 mg/dL (70-100); HDL Cholesterol 43 mg/dL (40-60); HEMOLYSIS < 15 (0-50); LDL Cholesterol Calculated 162 mg/dL (<100); Potassium 4.7 mmol/L (3.4-5.1); Sodium 138 mmol/L (137-145); Total Protein 7.9 g/dL (6.3-8.2); Triglycerides 111 mg/dL (35-150)
[2019-12-13 11:58] LABS: Parathyroid Hormone Int 39 pg/mL (15-65)
== END ==
PROVIDERS: PCP Physician Assistant; Referring Provider Student in an Organized Health Care Education/Training Program; Visit Provider Student in an Organized Health Care Education/Training Program
DX: Z13.1 Encounter for screening for diabetes mellitus (principal); D64.9 Anemia, unspecified; N25.81 Secondary hyperparathyroidism of renal origin; R80.9 Proteinuria, unspecified; N05.9 Unspecified nephritic syndrome with unspecified morphologic changes; I10 Essential (primary) hypertension; N18.3 Chronic kidney disease, stage 3 (moderate); E78.5 Hyperlipidemia, unspecified
CPT/HCPCS: 36415; 80053; 80061; 82570; 83036; 83970; 84156; 85014; 85018

== ENCOUNTER → 2020-03-05 13:16 | Outpatient (CLI) | payer OTHER, SELFPAY ==
[2019-06-30 13:22] VITALS: BMI 36.7
== END ==
PROVIDERS: PCP Family Medicine; Referring Provider Family Medicine; Visit Provider Family Medicine
DX: Z13.820 Encounter for screening for osteoporosis (principal); M85.88 Other specified disorders of bone density and structure, other site; Z78.0 Asymptomatic menopausal state
CPT/HCPCS: 77080

== ENCOUNTER → 2020-03-30 13:51 | Outpatient (CLI) | payer OTHER, SELFPAY ==
[2019-06-30 13:22] VITALS: BMI 36.7
[2020-03-31 23:35] LABS: COVID19 Sendout Not Detected (Not Detect)
== END ==
PROVIDERS: PCP Family Medicine; Visit Provider Physician Assistant
DX: Z01.812 Encounter for preprocedural laboratory examination (principal)
CPT/HCPCS: 87635

== ENCOUNTER 2020-04-02 09:25 | Day surgery (SDC) | payer OTHER, SELFPAY ==
[2019-06-30 13:22] VITALS: BMI 36.7
[2020-04-02] VITALS (10 sets, daily range): BP systolic 104–134; BP diastolic 76–92; PULSE 76–96; RESP 10–20; TEMP 36.1–36.8; O2SAT 93–98; BMI 37.2
--- NOTE | 2020-04-02 | PATH_ITS ---
[facility] Accession Number: [id number] . 01 Material submitted: . PART A: colon - ASCENDING COLON PART B: cecum - CECAL POLYP PART C: colon - COLON POLYP AT 60CM . 02 Diagnosis: A. Ascending Colon, Polyp: Sessile serrated adenoma. . B. Cecum, Polyp: Sessile serrated adenoma. . C. Colon at 60 cm, Polyp: Colonic mucosa with prominent benign lymphoid aggregate. Negative for serrated lesion, dysplasia or malignancy. MRV 04/04/2020 1314 Local . 02 Electronically signed: . Adrian Guerra MD, PhD, Pathologist NPI- [id number] . 01 Gross description: . Part A: ASCENDING COLON: Received in formalin are 2 fragment(s) of tellez, soft tissue measuring 0.3 x 0.3 x 0.2 cm to 0.3 x 0.1 x 0.1 cm submitted entirely in 1 cassette(s) Part B: CECAL POLYP: Received in formalin is 1 fragment(s) of tellez, soft tissue measuring 0.5 x 0.3 x 0.6 cm which is inked, bisected and submitted entirely in 1 cassette(s) Part C: COLON POLYP AT 60CM: Received in formalin are 2 fragment(s) of tellez, soft tissue measuring 0.3 x 0.2 x 0.2 cm to 0.3 x 0.1 x 0.2 cm submitted entirely in 1 cassette(s) /QBJ 04/03/2020 0719 Local . 02 Pathologist provided ICD-10: D12.0, D12.2 . 02 CPT . 443799, [id number], [id number] Performed at: [address] [facility] [address], [place], [place] [id number] MD Ishan Paniagua MD Phone: [phone] Performed at: 02 [facility] [address] [place] [id number] MD Lorraine Villarreal MD Phone: [phone]
[2020-04-02] MEDS: LACTATED RINGERS 1,000 ML 42 ML IV (10:13)
--- NOTE | 2020-04-02 11:01 | PM.HP.1 ---
History of Present Illness History of Present Illness Date Patient Seen: 04/02/20 Time Patient Seen: 11:02 Chief complaint: Colonoscopy Narrative: The patient is a woman here for a screening colonoscopy. This is her 1st exam. She just turned 49. Her mother actually was diagnosed with colon cancer about 6 years ago. She is in her 70s Patient History Medical History Anemia (Acute) Asthma (Acute) BCC (basal cell carcinoma) (Acute) Chickenpox (Resolved) CKD (chronic kidney disease) (Chronic) Essential hypertension (Chronic 08/03/16) Gastroesophageal reflux disease (Chronic 02/03/11) History of basal cell carcinoma (BCC) (Inactive) History of nephrolithiasis (Resolved) HTN (hypertension) (Acute) Hyperlipidemia (Chronic) Leukopenia (Acute) Medullary sponge kidney (Chronic) MANNY on CPAP (Acute) Recurrent UTI (urinary tract infection) (Chronic) Scarlet fever (Resolved ~1978) Sicca complex (Chronic 02/03/11) Sjogren's syndrome (Chronic) Spinal stenosis (Acute) Thrombocytopenia (Acute) Surgical History Hx of lithotripsy (Resolved) Hx of tubal ligation (Acute) Status post delivery Status post hysterectomy Family & Social History Family History Father Diabetes mellitus Hepatitis C Circulation problem Alcoholism /alcohol abuse Mother History of colon cancer Hypertension Parkinsons disease Sister Celiac disease Diverticulitis Migraines Social History: household members spouse,children Tobacco & Substance use: Smoking Status Never smoker alcohol intake current alcohol intake frequency a few times a week Substance Use Type does not use Meds Home Medications and Allergies Home Medications Medication Instructions Recorded Confirmed Type fluconazole 150 mg tablet 150 mg PO PRN PRN tab 03/09/18 04/02/20 History triamcinolone acetonide 0.5 % 1 applictn TOP TID PRN 02/13/19 04/02/20 History topical cream potassium citrate 10 mEq (1,080 15 meq PO QPM tab 06/08/19 04/02/20 History mg) tablet,extended release acetaminophen [Tylenol Extra 1,000 mg PO Q6H PRN 06/19/19 04/02/20 History Strength] metoprolol succinate 25 mg 12.5 mg PO BEDTIME #45 tab 11/20/19 04/02/20 Rx tablet,extended release 24 hr valacyclovir 500 mg tablet 1,000 mg PO BID PRN #30 tab 11/20/19 04/02/20 Rx pantoprazole 40 mg tablet,delayed 40 mg PO DAILY #90 tab 03/08/20 04/02/20 Rx release Allergies Allergy/AdvReac Type Severity Reaction Status Date / Time iodine Allergy Intermediate HIVES - Verified 04/02/20 10:01 CONTRAST Sulfa (Sulfonamide Allergy Intermediate My finger Verified 04/02/20 10:02 Antibiotics) swelled up NSAIDS (Non-Steroidal AdvReac Severe CKD Stage 3 Verified 04/02/20 10:01 Anti-Inflamma morphine AdvReac Intermediate Nausea/vomi Verified 04/02/20 10:01 ting ciprofloxacin AdvReac Mild intestinal Verified 04/02/20 10:01 cramping esomeprazole AdvReac Mild CONSTIPATIO Verified 04/02/20 10:01 N Review of Systems Review of Systems ROS: Yes All systems reviewed with the patient and are negative except as otherwise documented Exam Vital Signs (past 8 hours): - 04/02/20 10:11 Temperature 98.2 F Pulse Rate 96 H Respiratory Rate 16 Blood Pressure 134/92 H Pulse Oximetry 96 Oxygen Delivery Method Room Air Narrative Exam Narrative: Pleasant cooperative patient no apparent distress. Lungs are clear to auscultation. No rales or rhonchi. Heart regular rate and rhythm no murmur gallop. Abdomen is soft nontender without mass. No obvious hernias. Patient is alert and oriented x3. Assessment & Plan Assessment & Plan narrative: The patient for a screening colonoscopy. I have discussed the procedure with them. Risks of bleeding, perforation which would necessitate major operation, failure to find remove all lesions, the potential tattoo were all discussed. All questions were answered. They wished to proceed.
[2020-04-02] MEDS: ONDANSETRON 4 MG/2 ML INJ IV (11:05)
--- NOTE | 2020-04-02 11:07 | PM.PREOP ---
Pre-operative Note COVID-19 COVID-19 status: Negative Result date/Date tested (Pos, Neg/Pending): 03/30/20 Interval Note History & Physical reviewed/Exam performed by Physician: Yes Changes to H&P: No ASA Class (for procedural sedation): II
[2020-04-02] MEDS: MIDAZOLAM 5 MG/5 ML VIAL IV (11:09)
[2020-04-02] MEDS: fentaNYL 250 MCG/5 ML INJ IV (11:09)
--- NOTE | 2020-04-02 11:43 | P.OP.ENDO_ITS ---
Operative Date/Time/Diagnoses Date of procedure: 04/02/20 Time of procedure: 11:44 Pre-op diagnosis: Screening for colon cancer. This is her 1st exam. She has turned 49. Her mother had colon cancer. Post-op diagnosis: same (Multiple small polyps removed.) Procedure & Clinicians Study performed: Colonoscopy with hot snare polypectomy, cold biopsy. Same procedure as scheduled: Yes Indications: Screening Surgeon: Emanuel Hilario Procedure Notes SCOAP/Timeout: Performed Procedure in detail: The patient was placed in the left lateral decubitus position and underwent IV sedation directed by the surgeon consisting of brent coleman and Maria A. Digital exam was unremarkable. The scope was inserted and advanced through the rectum into the sigmoid, descending, transverse, and ascending colon. Lesion was seen in the ascending colon which was biopsied and removed on the way in.. The cecum was reached identified by the ileocecal valve and the appendiceal opening. There was a small polyp in the cecum which I used a hot snare to remove. The ileocecal valve was then successfully cannulated. The terminal ileum was normal in appearance. The scope was gradually brought out. One additional polyp was found at 60 cm and removed and 1 was cauterized at 70 cm from the anal verge. No other Polyps were found. The scope ultimately was retroflexed in the rectum. The appearance was remarkable for internal hemorrhoids.. The scope was removed and the patient tolerated the procedure well. The prep was good. Scope withdrawal time: 8 minutes(10 total) Sedation minutes: 30 Findings: polyp (Multiple) Specimen(s): other (Polyps) Complications: none Post-procedure Recommendations: Colonscopy in 5 years Follow up: as needed Disposition: PACU
== END 2020-04-02 12:50 | disposition home or self-care (01) ==
PROVIDERS: PCP Family Medicine; Referring Provider Family Medicine; Visit Provider Specialist
PROC: 0DJD8ZZ Inspection of Lower Intestinal Tract, Via Natural or Artificial Opening Endoscopic (ICD-10-PCS; CPT 45378; principal; 2020-04-02 10:45)
DX: Z12.11 Encounter for screening for malignant neoplasm of colon (principal); Z80.0 Family history of malignant neoplasm of digestive organs; G47.33 Obstructive sleep apnea (adult) (pediatric); I10 Essential (primary) hypertension; E78.5 Hyperlipidemia, unspecified; D64.9 Anemia, unspecified; J45.909 Unspecified asthma, uncomplicated; K21.9 Gastro-esophageal reflux disease without esophagitis; M35.00 Sjogren syndrome, unspecified; K64.8 Other hemorrhoids; D12.2 Benign neoplasm of ascending colon; D12.0 Benign neoplasm of cecum; D12.6 Benign neoplasm of colon, unspecified
CPT/HCPCS: 45385; 45380; 99152; 99153; J2250; J2405; J3010

== ENCOUNTER → 2020-04-09 15:59 | Outpatient (CLI) | payer OTHER, SELFPAY ==
[2019-06-30 13:22] VITALS: BMI 36.7
--- NOTE | 2020-04-09 16:01 | DI.MG.S_ITS ---
BILATERAL DIGITAL SCREENING MAMMOGRAM 3D/2D WITH CAD: 04/09/2020 CLINICAL: Routine screening. Family history of breast cancer. Comparison is made to exams dated: 01/06/2019 mammogram, 12/01/2017 mammogram, and 11/27/2016 mammogram - [facility]. There are scattered fibroglandular elements in both breasts. Current study was also evaluated with a Computer Aided Detection (CAD) system. No significant masses, calcifications, or other findings are seen in either breast. There has been no significant interval change. IMPRESSION: NEGATIVE There is no mammographic evidence of malignancy. A 1 year screening mammogram is recommended. This exam was interpreted at Station ID: [id number]. NOTE: For mammograms, a report in lay terms will be sent to the patient. Approximately 15% of breast malignancies will not be visualized mammographically. In the management of a palpable breast mass, a negative mammogram must not discourage biopsy of a clinically suspicious lesion. Electronically Signed By: Princess forte/govind:04/10/2020 09:23:07 letter sent: Normal Exam ACR BI-RADS Category 1: Negative 3341F
== END ==
PROVIDERS: PCP Family Medicine; Referring Provider Family Medicine; Visit Provider Family Medicine
DX: Z12.31 Encounter for screening mammogram for malignant neoplasm of breast (principal); Z80.3 Family history of malignant neoplasm of breast
CPT/HCPCS: 77063; 77067

== ENCOUNTER → 2020-07-22 16:19 | Outpatient (CLI) | payer OTHER, SELFPAY ==
[2019-06-30 13:22] VITALS: BMI 36.7
[2020-07-22 16:55] LABS: Hematocrit 40.4 % (36-46); Hemoglobin 13.4 g/dL (12.0-16.0)
[2020-07-22 17:31] LABS: Creatinine Urine Random 79.7 mg/dL; Protein (Total) Urine Random 9 mg/dL (0-12); Protein Creatinine Ratio Urine 0.11 GRAM/24H
[2020-07-22 17:33] LABS: BUN Creatinine Ratio 16.2 (6-22); Blood Urea Nitrogen 25 mg/dL (7-17); Calcium 9.3 mg/dL (8.4-10.2); Carbon Dioxide 31 mmol/L (22-32); Chloride 103 mmol/L (98-107); Estimated Glomerular Filt Rate 35.7 mL/min (>60); Glucose 94 mg/dL (70-100); HEMOLYSIS < 15 (0-50); Potassium 4.4 mmol/L (3.4-5.1); Sodium 137 mmol/L (137-145)
[2020-07-23 09:10] LABS: Parathyroid Hormone Int 44 pg/mL (15-65)
== END ==
PROVIDERS: PCP Family Medicine; Referring Provider Student in an Organized Health Care Education/Training Program; Visit Provider Student in an Organized Health Care Education/Training Program
DX: N05.9 Unspecified nephritic syndrome with unspecified morphologic changes (principal); D64.9 Anemia, unspecified; N25.81 Secondary hyperparathyroidism of renal origin; R80.9 Proteinuria, unspecified
CPT/HCPCS: 36415; 80048; 82570; 83970; 84156; 85014; 85018

== ENCOUNTER → 2020-08-02 10:43 | Outpatient (CLI) | payer OTHER, SELFPAY ==
[2019-06-30 13:22] VITALS: BMI 36.7
--- NOTE | 2020-08-02 | DI.US.S_ITS ---
PROCEDURE: US RENAL COMPLETE INDICATIONS: Calculus of kidney TECHNIQUE: Real-time scanning was performed of the kidneys and bladder, with image documentation. COMPARISON: [facility], CT, KIDNEY/ URETER/BLADDER, 12/11/2015, 10:13. [facility], US, RENAL COMPLETE, 05/08/2011, 13:13. FINDINGS: Kidneys: Kidneys are normal in size. Right kidney measures 10.9 cm long; left kidney measures 11.4 cm long. Right renal cortical thickness is 1.4 cm; left renal cortical thickness is 1.1 cm. Renal cortical echotexture is normal. Extensive medullary nephrocalcinosis is again seen. Apparent shadowing stones are also seen, at this may be artifactual. There is no hydronephrosis. No suspicious solid mass lesions. Bladder: Pre-void bladder volume is 236 mL. Post-void residual is 5 mL. Pre-void images demonstrate no intraluminal masses or stones. On pre-void images, both ureteral jets are noted with color Doppler interrogation. (Of note, ureteral jets may not be detectable in up to 25% of cases due to insufficient differences in specific gravity between ureteral and bladder urine). Miscellaneous: No free pelvic fluid. IMPRESSION: No hydronephrosis. Bilateral medullary sponge kidney, with extensive bilateral medullary nephrocalcinosis. There may be superimposed kidney stones, at this is difficult to discern, given the background calcification. Dictated by: Cristhian Herrera M.D. on 08/02/2020 at 11:07 Approved by: Cristhian Herrera M.D. on 08/02/2020 at 11:10
== END ==
PROVIDERS: PCP Family Medicine; Referring Provider Student in an Organized Health Care Education/Training Program; Visit Provider Student in an Organized Health Care Education/Training Program
DX: Q61.5 Medullary cystic kidney (principal); E83.59 Other disorders of calcium metabolism; N29 Other disorders of kidney and ureter in diseases classified elsewhere
CPT/HCPCS: 76770

== ENCOUNTER → 2020-10-22 07:15 | Outpatient (CLI) | payer OTHER, SELFPAY ==
[2019-06-30 13:22] VITALS: BMI 36.7
[2020-10-22 08:54] LABS: BUN Creatinine Ratio 14.5 (6-22); Blood Urea Nitrogen 18 mg/dL (7-17); Calcium 8.6 mg/dL (8.4-10.2); Carbon Dioxide 28 mmol/L (22-32); Chloride 108 mmol/L (98-107); Estimated Glomerular Filt Rate 45.8 mL/min (>60); Glucose 116 mg/dL (70-100); HEMOLYSIS < 15 (0-50); Potassium 3.9 mmol/L (3.4-5.1); Sodium 140 mmol/L (137-145)
== END ==
PROVIDERS: PCP Family Medicine; Referring Provider Family Medicine; Visit Provider Family Medicine
DX: N18.32 Chronic kidney disease, stage 3b (principal); N25.0 Renal osteodystrophy
CPT/HCPCS: 36415; 80048

== ENCOUNTER → 2020-11-26 17:29 | Outpatient (CLI) | payer OTHER, SELFPAY ==
[2019-06-30 13:22] VITALS: BMI 36.7
== END ==
PROVIDERS: PCP Family Medicine; Visit Provider Physician Assistant
DX: N39.0 Urinary tract infection, site not specified (principal)
CPT/HCPCS: 87077; 87086; 87186

== ENCOUNTER → 2020-12-16 09:53 | Outpatient (CLI) | payer OTHER, SELFPAY ==
[2019-06-30 13:22] VITALS: BMI 36.7
== END ==
PROVIDERS: PCP Family Medicine; Visit Provider Physician Assistant
DX: N89.8 Other specified noninflammatory disorders of vagina (principal); N34.3 Urethral syndrome, unspecified
CPT/HCPCS: 87077; 87086; 87186; 87210

== ENCOUNTER → 2020-12-27 18:19 | Outpatient (CLI) | payer OTHER, SELFPAY ==
[2019-06-30 13:22] VITALS: BMI 36.7
== END ==
PROVIDERS: PCP Family Medicine; Visit Provider Student in an Organized Health Care Education/Training Program
DX: N34.3 Urethral syndrome, unspecified (principal)
CPT/HCPCS: 87077; 87086; 87186

== ENCOUNTER → 2021-01-02 07:11 | Outpatient (CLI) | payer OTHER, SELFPAY ==
[2019-06-30 13:22] VITALS: BMI 36.7
--- NOTE | 2021-01-02 | DI.US.S_ITS ---
PROCEDURE: US RENAL COMPLETE INDICATIONS: UTIS; KNOWN MEDULLARY SPONGE KIDNEYS TECHNIQUE: Real-time scanning was performed of the kidneys and bladder, with image documentation. COMPARISON: [facility], RENAL COMPLETE, 08/02/2020, 10:48. [facility], RENAL COMPLETE, 05/08/2011, 13:13. FINDINGS: Kidneys: Kidneys are normal in craniocaudad dimension but thin at the cortex bilaterally. Right kidney measures 10.3 cm long; left kidney measures 11.2 cm long. Right renal cortical thickness is 0.7 cm; left renal cortical thickness is 1.0 cm. Renal cortical echotexture is normal. No hydronephrosis or nephrolithiasis. No suspicious solid mass lesions. Echotexture of the kidneys indicates bilateral medullary sponge kidney. Bladder: Bladder is centrally empty for evaluation, therefore the study could not evaluate for internal stones or bladder mural thickening or mass. Miscellaneous: No free pelvic fluid. IMPRESSION: Medullary sponge kidney with normal craniocaudad length of the kidneys but renal cortical thinning. No hydronephrosis at this time. The bladder was not urine filled and therefore accurate assessment of bladder function and mucosal and bladder wall details could not be performed. Dictated by: Matt Suh M.D. on 01/02/2021 at 11:39 Approved by: Matt Suh M.D. on 01/02/2021 at 11:41
== END ==
PROVIDERS: PCP Family Medicine; Referring Provider Internal Medicine Nephrology; Visit Provider Internal Medicine Nephrology
DX: N39.0 Urinary tract infection, site not specified (principal); Q61.5 Medullary cystic kidney
CPT/HCPCS: 76770

== ENCOUNTER → 2021-01-31 07:49 | Outpatient (CLI) | payer OTHER, SELFPAY ==
[2019-06-30 13:22] VITALS: BMI 36.7
--- NOTE | 2021-01-31 07:52 | DI.RAD.S_ITS ---
PROCEDURE: XR ELBOW RT MIN 3V INDICATIONS: bilateral elbow pain TECHNIQUE: 3 views of the elbow were acquired. COMPARISON: None. FINDINGS: Bones: No fractures or dislocations. No suspicious bony lesions. Soft tissues: No elbow joint effusion. No suspicious soft tissue calcifications. IMPRESSION: Negative examination. If the patient's pain or other symptoms persist, consider further evaluation with MRI Dictated by: Myles Deleon M.D. on 01/31/2021 at 11:02 Approved by: Myles Deleon M.D. on 01/31/2021 at 11:02
--- NOTE | 2021-01-31 07:52 | DI.RAD.S_ITS ---
PROCEDURE: XR ELBOW LT MIN 3V INDICATIONS: bilateral elbow pain TECHNIQUE: 3 views of the elbow were acquired. COMPARISON: None. FINDINGS: Bones: No fractures or dislocations. No suspicious bony lesions. Soft tissues: No elbow joint effusion. No suspicious soft tissue calcifications. IMPRESSION: Negative examination. If the patient's pain or other symptoms persist, consider further evaluation with MRI Dictated by: Myles Deleon M.D. on 01/31/2021 at 11:00 Approved by: Myles Deleon M.D. on 01/31/2021 at 11:01
[2021-01-31 08:16] LABS: Add Manual Diff / Slide Review NO; Basophils Absolute Auto 0 /uL (0-100); Basophils Percent Auto 0.8 % (0-2); Eosinophils Absolute Auto 100 /uL (0-450); Eosinophils Percent Auto 2.4 % (2-4); Hematocrit 40.2 % (36-46); Hemoglobin 13.1 g/dL (12.0-16.0); Lymphocytes Absolute Auto 600 /uL (1100-4500); Lymphocytes Percent Auto 24.2 % (25-40); Mean Corpuscular HGB Conc 32.7 % (30-36); Mean Corpuscular Hemoglobin 27.5 PG (26-34); Mean Corpuscular Volume 84.2 fL (80-100); Monocytes Absolute Auto 300 /uL (0-900); Monocytes Percent Auto 9.8 % (3-14); Neutrophils Absolute Auto 1700 /uL (1500-7000); Neutrophils Percent Auto 62.8 % (50-75); Platelet Count 182 X10^3/uL (150-400); Red Blood Cell Count 4.78 X10^6/uL (4.0-5.2); Red Cell Distribution Width 14.6 % (11.6-14.8); White Blood Cell Count 2.7 X10^3/uL (4.5-11.0)
[2021-01-31 08:33] LABS: Albumin 4.3 g/dL (3.5-5.0); BUN Creatinine Ratio 18.9 (6-22); Blood Urea Nitrogen 27 mg/dL (7-17); Calcium 9.8 mg/dL (8.4-10.2); Carbon Dioxide 26 mmol/L (22-32); Chloride 109 mmol/L (98-107); Estimated Glomerular Filt Rate 38.7 mL/min (>60); Glucose 104 mg/dL (70-100); HEMOLYSIS < 15 (0-50); Phosphorous 3.8 mg/dL (2.5-4.5); Potassium 4.5 mmol/L (3.4-5.1); Sodium 142 mmol/L (137-145)
[2021-02-01 06:29] LABS: Parathyroid Hormone Int 40 pg/mL (15-65)
== END ==
PROVIDERS: PCP Family Medicine; Referring Provider Internal Medicine Nephrology; Visit Provider Internal Medicine Nephrology
DX: N18.32 Chronic kidney disease, stage 3b (principal); M25.521 Pain in right elbow; M25.522 Pain in left elbow
CPT/HCPCS: 36415; 73080; 80069; 83970; 85025

== ENCOUNTER → 2021-04-11 08:15 | Outpatient (CLI) | payer OTHER, SELFPAY ==
[2019-06-30 13:22] VITALS: BMI 36.7
--- NOTE | 2021-04-11 | DI.MG.S_ITS ---
BILATERAL DIGITAL SCREENING MAMMOGRAM 3D/2D WITH CAD: 04/11/2021 CLINICAL: Routine screening. Family history of breast cancer. Comparison is made to exams dated: 04/09/2020 mammogram, 01/06/2019 mammogram, 12/01/2017 mammogram, and 11/27/2016 mammogram - [facility]. The tissue of both breasts is heterogeneously dense. This may lower the sensitivity of mammography. Current study was also evaluated with a Computer Aided Detection (CAD) system. No significant masses, calcifications, or other findings are seen in either breast. There has been no significant interval change. IMPRESSION: NEGATIVE There is no mammographic evidence of malignancy. A 1 year screening mammogram is recommended. This exam was interpreted at Station ID: [id number]. NOTE: For mammograms, a report in lay terms will be sent to the patient. Approximately 15% of breast malignancies will not be visualized mammographically. In the management of a palpable breast mass, a negative mammogram must not discourage biopsy of a clinically suspicious lesion. Electronically Signed By: Jesus wei/govind:04/11/2021 14:30:16 letter sent: Normal Exam ACR BI-RADS Category 1: Negative [id number]
== END ==
PROVIDERS: PCP Family Medicine; Referring Provider Family Medicine; Visit Provider Family Medicine
DX: Z12.31 Encounter for screening mammogram for malignant neoplasm of breast (principal); Z80.3 Family history of malignant neoplasm of breast
CPT/HCPCS: 77063; 77067

== ENCOUNTER 2021-05-09 16:00 | Outpatient (RCR) | payer OTHER, SELFPAY ==
[2019-06-30 13:22] VITALS: BMI 36.7
--- NOTE | 2021-03-24 17:40 | PT.OIE ---
Current Diagnoses Lesion of ulnar nerve, left upper limb (03/24/21) Pain in left shoulder (03/24/21) Pain in right elbow (03/24/21) Pain in left elbow (03/24/21) Stiffness of other specified joint, not elsewhere classified (03/24/21) Sicca syndrome, unspecified (03/24/21) Past Medical History (Last Reviewed 01/29/21 @ 17:33 by Stewart Darnell MD) Anemia Asthma BCC (basal cell carcinoma) Bilateral elbow joint pain Chickenpox Chronic pain of left elbow CKD (chronic kidney disease) Essential hypertension (08/03/16) Gastroesophageal reflux disease (02/03/11) History of basal cell carcinoma (BCC) History of nephrolithiasis HSV-1 (herpes simplex virus 1) infection HTN (hypertension) Hx of lithotripsy Hx of tubal ligation Hyperlipidemia Leukopenia Medullary sponge kidney MANNY on CPAP Recurrent UTI (urinary tract infection) Scarlet fever (~1978) Sicca complex (02/03/11) Sjogren's syndrome Spinal stenosis Thrombocytopenia Urinary tract infection Past Surgical History (Last Reviewed 01/29/21 @ 17:33 by Stewart Darnell MD) Hx of lithotripsy Hx of tubal ligation Status post delivery Status post hysterectomy Visit Care Team Role Provider Type Stewart Darnell MD Attending Provider Physician Primary Care Provider Referring Provider Specialty: [facility] Address: [address] [place] [address], [facility] Email: [email or web address] Physical Therapy Initial Evaluation PT-OP-A Visit Information Start: 03/24/21 17:42 Freq: Status: Active Protocol: Document 03/24/21 16:45 DCW (Rec: 03/24/21 17:44 DCW [id number]) Out-Patient Physical Therapy Visit Information Visit Information Visit Type Initial Evaluation Visit Start Time 16:45 Visit Stop Time 17:30 Total Visit Minutes 45 Visit Number 1 Number of HELICOPTER UTILITY AIRCREWMAN Visits 0 Evaluation Information Evaluation Date 03/24/21 PT-OP-B Current Condition Start: 03/24/21 17:42 Freq: Status: Active Protocol: Document 03/24/21 16:45 DCW (Rec: 03/24/21 17:51 DCW [id number]) Current Condition History of Current Condition Onset Date 7 month history Current Complaints shoulder, elbow, forearm, and hand pain, L>R History of Current Condition Pt is a 50 year old female presenting with a seven month history of elbow pain with radicular symptoms down forearm and into medial aspect of hands bilaterally, L>>R. Pt notes that overall, her symptoms have improved greatly over the last two weeks, however she has also begun to experience cervical and left shoulder pain and tightness, with continuing radiating symptoms to the left hand. 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 Treatment Goals Patient/Caregiver Goals Improve hand strength, improve cervical ROM, decrease hand pain PT-OP-C Subjective Start: 03/24/21 17:42 Freq: Status: Active Protocol: Document 03/24/21 16:45 DCW (Rec: 03/24/21 17:51 DCW [id number]) OP-PT Subjective Patient Comments Patient Comments My elbows have gotten better, but my shoulder has gotten worse, and I'm still having the pain in my hands. Patient Questionnaires Quick Dash- Upper Extremity Quick Dash UE Score 9.09% Quick Dash UE Impairment 1 to 19% Impaired (Score 1-19) OP-PT Pain Assessment Pain Assessment Grid Paper Pain Assessment Grid Completed Yes Location Left Shoulder Intensity 3 Scale Used Numeric (0 - 10) Radiating Location Radiating to medial elbow and medial hand PT-OP-F Manual Assessment Start: 03/25/21 09:39 Freq: Status: Active Protocol: Document 03/24/21 16:45 DCW (Rec: 03/25/21 09:40 DCW [id number]) Manual Assessments Soft Tissue Assessment Soft Tissue Mobility Assessment Moderate tone and tenderness to palpation 2/4: Pain with wincing along bilateral scalenes, left upper trap, left paraspinals, left forearm PT-OP-K Range of Motion Start: 03/24/21 17:42 Freq: Status: Active Protocol: Document 03/24/21 16:45 DCW (Rec: 03/24/21 17:54 DCW [id number]) Cervical Spine Range of Motion Cervical Spine Active Degrees Testing Position Sitting Flexion 50 Extension 45 Rotation Left 55 Rotation Right 65 Lateral Flexion Left 45 Lateral Flexion Right 30 ROM Limitations Soft Tissue Tightness,Muscle Tone Shoulder Goniometric Range of Motion Shoulder Bilateral AROM Shoulder ROM WFL Yes Testing Position Sitting PT-OP-L Special Tests Start: 03/24/21 17:42 Freq: Status: Active Protocol: Document 03/24/21 16:45 DCW (Rec: 03/24/21 17:54 DCW [id number]) Special Tests Cervical Spine Special Tests Spurling's Test Test Results Negative Traction Test Results Negative Slump Test Results Negative Passive Neck Flexion Test Results Negative Foraminal Compression Test Results Negative PT-OP-M Strength Start: 03/24/21 17:42 Freq: Status: Active Protocol: Document 03/24/21 16:45 DCW (Rec: 03/24/21 17:54 DCW [id number]) Hand Communications Project Lead/Pinch Strength Hand Dominance Hand Dominance Right Hand Strength Right Communications Project Lead (lbs) 40.00 Comments 3-trial average (45, 40, 35) Left Communications Project Lead (lbs) 21.67 Comments 3-trial average (25, 20, 20) PT-OP-Q Treatments Start: 03/24/21 17:42 Freq: Status: Active Protocol: Document 03/24/21 16:45 DCW (Rec: 03/24/21 17:44 DCW [id number]) Therapeutic Exercises Sitting Exercises 2 Sitting Exercise Name Upper trap stretch Side bilateral Comments HEP 1 Sitting Exercise Name Scalene stretch Side bilateral Comments HEP PT-OP-T Assessment and Plan Start: 03/24/21 17:42 Freq: Status: Active Protocol: Document 03/24/21 16:45 DCW (Rec: 03/25/21 09:39 DCW [id number]) Physical Therapy Assessment Rehab Potential Rehabilitation Potential Excellent Evaluation Complexity Number of Personal Factors/Comorbidities 1-2 Number of Body Systems Impaired 1-2 Clinical Presentation at Evaluation Stable Impairments Impairments Functional Activities, Functional Mobility,ROM,Soft Tissue Mobility,Strength Goals Three Impairment Pt shows bilateral humane agent weakness, left worse than right Onsite Case Manager Goal (LTG) Pt to increase bilateral humane agent strength to at least 50 pounds to improve ability to open jars LTG Duration 05/26/21 Two Impairment Pt experiences difficulty turning neck when driving car Onsite Case Manager Goal (LTG) Pt to increased left cervical rotation to at least 65? to improve safety in driving LTG Duration 05/26/21 One Impairment Pt does not have an appropriate home exercise program Short Term Goal (STG) Pt to be independent and compliant with an appropriate HEP STG Duration 04/25/21 Assessment Summary Assessment Pt presents with signs and symptoms of possible ulnar nerve impingement. Special testing, however, is largely negative, and no obvious causes of impingement are discernible. Both cervical testing and elbow testing were all negative. Pt does present with bilateral humane agent weakness, forearm pain, cervical stiffness, and increased tone in left upper trap and parascapular musculature. Pt should benefit from skilled therapy focusing on STM, flexibility, strengthening, and decreasing tone. Physical Therapy Plan Frequency and Duration Frequency of Treatment 2x/Week Duration of Treatment Two months Plan of Care Start Date 03/24/21 Plan of Care End Date 05/25/21 Therapeutic Interventions Therapeutic Interventions Home Exercise Program,Joint Mobilizations,Manual Therapy, Neuromuscular Re-education, Patient/Caregiver Education, Self-Care/Home Management,Soft Tissue Mobilization, Therapeutic Activities, Therapeutic Exercises Modalities Cold Pack/Ice Massage,Electric Stimulation,Hot Packs, Ultrasound Next Visit Focus/Plan Next Note Type Treatment Note Next Visit Plan STM, Stretching, strengthening
--- NOTE | 2021-03-25 09:41 | PT.OPPOC ---
Physical, Occupational & Speech Therapy At [facility] Current Diagnoses Lesion of ulnar nerve, left upper limb (03/24/21) Pain in left shoulder (03/24/21) Pain in right elbow (03/24/21) Pain in left elbow (03/24/21) Stiffness of other specified joint, not elsewhere classified (03/24/21) Sicca syndrome, unspecified (03/24/21) Visit Care Team Role Provider Type Stewart Darnell MD Attending Provider Physician Primary Care Provider Referring Provider Specialty: Family Practice Address: [address] [place] [address] Email: [email or web address] Plan Of Care PT-OP-T Assessment and Plan Start: 03/24/21 17:42 Freq: Status: Active Protocol: Document 03/24/21 16:45 DCW (Rec: 03/25/21 09:39 DCW [id number]) Physical Therapy Assessment Rehab Potential Rehabilitation Potential Excellent Evaluation Complexity Number of Personal Factors/Comorbidities 1-2 Number of Body Systems Impaired 1-2 Clinical Presentation at Evaluation Stable Impairments Impairments Functional Activities, Functional Mobility,ROM,Soft Tissue Mobility,Strength Goals Three Impairment Pt shows bilateral inclusion teacher weakness, left worse than right Manufacturing Business Analyst Goal (LTG) Pt to increase bilateral inclusion teacher strength to at least 50 pounds to improve ability to open jars LTG Duration 05/26/21 Two Impairment Pt experiences difficulty turning neck when driving car Manufacturing Business Analyst Goal (LTG) Pt to increased left cervical rotation to at least 65? to improve safety in driving LTG Duration 05/26/21 One Impairment Pt does not have an appropriate home exercise program Short Term Goal (STG) Pt to be independent and compliant with an appropriate HEP STG Duration 04/25/21 Assessment Summary Assessment Pt presents with signs and symptoms of possible ulnar nerve impingement. Special testing, however, is largely negative, and no obvious causes of impingement are discernible. Both cervical testing and elbow testing were all negative. Pt does present with bilateral inclusion teacher weakness, forearm pain, cervical stiffness, and increased tone in left upper trap and parascapular musculature. Pt should benefit from skilled therapy focusing on STM, flexibility, strengthening, and decreasing tone. Physical Therapy Plan Frequency and Duration Frequency of Treatment 2x/Week Duration of Treatment Two months Plan of Care Start Date 03/24/21 Plan of Care End Date 05/25/21 Therapeutic Interventions Therapeutic Interventions Home Exercise Program,Joint Mobilizations,Manual Therapy, Neuromuscular Re-education, Patient/Caregiver Education, Self-Care/Home Management,Soft Tissue Mobilization, Therapeutic Activities, Therapeutic Exercises Modalities Cold Pack/Ice Massage,Electric Stimulation,Hot Packs, Ultrasound Next Visit Focus/Plan Next Note Type Treatment Note Next Visit Plan STM, Stretching, strengthening Plan of Care Dates Plan of Care Start Date 03/24/21 Plan of Care End Date 05/25/21 Electronically Signed by: Nirav Trevizo, PT 03/25/21 0941 Please Sign and Return: I have reviewed this Plan of Care and certify that the skilled therapy services above are required to meet the patient?s needs. Physician Signature Date Printed Name and Credentials Clinical Instructor Signature Printed Name and Credentials
--- NOTE | 2021-03-26 16:44 | PT.OTN ---
Current Diagnoses Lesion of ulnar nerve, left upper limb (03/26/21) Pain in left shoulder (03/26/21) Pain in right elbow (03/26/21) Pain in left elbow (03/26/21) Stiffness of other specified joint, not elsewhere classified (03/26/21) Sicca syndrome, unspecified (03/26/21) Physical Therapy Treatment Note PT-OP-A Visit Information Start: 03/24/21 17:42 Freq: Status: Active Protocol: Document 03/26/21 16:00 DCW (Rec: 03/26/21 16:44 DCW [id number]) Out-Patient Physical Therapy Visit Information Visit Information Visit Type Initial Evaluation Visit Start Time 16:00 Visit Stop Time 16:45 Total Visit Minutes 45 Visit Number 2 Number of ATLASSIAN ADMINISTRATOR Visits 0 Evaluation Information Evaluation Date 03/24/21 PT-OP-B Current Condition Start: 03/24/21 17:42 Freq: Status: Active Protocol: Document 03/24/21 16:45 DCW (Rec: 03/24/21 17:51 DCW [id number]) Current Condition History of Current Condition Onset Date 7 month history Current Complaints shoulder, elbow, forearm, and hand pain, L>R History of Current Condition Pt is a 50 year old female presenting with a seven month history of elbow pain with radicular symptoms down forearm and into medial aspect of hands bilaterally, L>>R. Pt notes that overall, her symptoms have improved greatly over the last two weeks, however she has also begun to experience cervical and left shoulder pain and tightness, with continuing radiating symptoms to the left hand. 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 Treatment Goals Patient/Caregiver Goals Improve hand strength, improve cervical ROM, decrease hand pain PT-OP-C Subjective Start: 03/24/21 17:42 Freq: Status: Active Protocol: Document 03/26/21 16:00 DCW (Rec: 03/26/21 16:44 DCW [id number]) OP-PT Subjective Patient Comments Patient Comments Pt notes her neck feels okay, but when I'm doing the stretch, when I let go, it feels funny as it goes back to the middle. PT-OP-F Manual Assessment Start: 03/25/21 09:39 Freq: Status: Active Protocol: Document 03/24/21 16:45 DCW (Rec: 03/25/21 09:40 DCW [id number]) Manual Assessments Soft Tissue Assessment Soft Tissue Mobility Assessment Moderate tone and tenderness to palpation 2/4: Pain with wincing along bilateral scalenes, left upper trap, left paraspinals, left forearm PT-OP-K Range of Motion Start: 03/24/21 17:42 Freq: Status: Active Protocol: Document 03/24/21 16:45 DCW (Rec: 03/24/21 17:54 DCW [id number]) Cervical Spine Range of Motion Cervical Spine Active Degrees Testing Position Sitting Flexion 50 Extension 45 Rotation Left 55 Rotation Right 65 Lateral Flexion Left 45 Lateral Flexion Right 30 ROM Limitations Soft Tissue Tightness,Muscle Tone Shoulder Goniometric Range of Motion Shoulder Bilateral AROM Shoulder ROM WFL Yes Testing Position Sitting PT-OP-L Special Tests Start: 03/24/21 17:42 Freq: Status: Active Protocol: Document 03/24/21 16:45 DCW (Rec: 03/24/21 17:54 DCW [id number]) Special Tests Cervical Spine Special Tests Spurling's Test Test Results Negative Traction Test Results Negative Slump Test Results Negative Passive Neck Flexion Test Results Negative Foraminal Compression Test Results Negative PT-OP-M Strength Start: 03/24/21 17:42 Freq: Status: Active Protocol: Document 03/24/21 16:45 DCW (Rec: 03/24/21 17:54 DCW [id number]) Hand Tool Lapper Hand/Pinch Strength Hand Dominance Hand Dominance Right Hand Strength Right Tool Lapper Hand (lbs) 40.00 Comments 3-trial average (45, 40, 35) Left Tool Lapper Hand (lbs) 21.67 Comments 3-trial average (25, 20, 20) PT-OP-Q Treatments Start: 03/24/21 17:42 Freq: Status: Active Protocol: Document 03/26/21 16:00 DCW (Rec: 03/26/21 16:44 DCW [id number]) Therapeutic Exercises Supine Exercises 1 Supine Exercise Name Chin tuck/head lift Sitting Exercises 2 Sitting Exercise Name Upper trap stretch Side bilateral Comments HEP 1 Sitting Exercise Name Scalene stretch Side bilateral Comments HEP Manual Therapy Treatment Soft Tissue Mobilization 3 Body Location B Levator Mobilization Type Strumming,Sustained Pressure, Trigger Point Release Body Position Supine 2 Body Location B Scalenes Mobilization Type Strumming,Sustained Pressure, Trigger Point Release Body Position Supine 1 Body Location B Upper Trap Mobilization Type Strumming,Sustained Pressure, Trigger Point Release Body Position Supine PT-OP-T Assessment and Plan Start: 03/24/21 17:42 Freq: Status: Active Protocol: Document 03/26/21 16:00 DCW (Rec: 03/26/21 16:44 DCW [id number]) Physical Therapy Assessment Impairments Impairments Functional Activities, Functional Mobility,ROM,Soft Tissue Mobility,Strength Goals Three Impairment Pt shows bilateral line closer weakness, left worse than right Production Machine Tender Goal (LTG) Pt to increase bilateral line closer strength to at least 50 pounds to improve ability to open jars LTG Duration 05/26/21 Two Impairment Pt experiences difficulty turning neck when driving car Senior Care Goal (LTG) Pt to increased left cervical rotation to at least 65? to improve safety in driving LTG Duration 05/26/21 One Impairment Pt does not have an appropriate home exercise program Short Term Goal (STG) Pt to be independent and compliant with an appropriate HEP STG Duration 04/25/21 Assessment Summary Assessment Pt tolerated treatment well today, although did note some increased left medial hand tingling during STM of left upper trap. Physical Therapy Plan Frequency and Duration Frequency of Treatment 2x/Week Duration of Treatment Two months Plan of Care Start Date 03/24/21 Plan of Care End Date 05/25/21 Therapeutic Interventions Therapeutic Interventions Home Exercise Program,Joint Mobilizations,Manual Therapy, Neuromuscular Re-education, Patient/Caregiver Education, Self-Care/Home Management,Soft Tissue Mobilization, Therapeutic Activities, Therapeutic Exercises Modalities Cold Pack/Ice Massage,Electric Stimulation,Hot Packs, Ultrasound Next Visit Focus/Plan Next Note Type Treatment Note Next Visit Plan STM, Stretching, strengthening
--- NOTE | 2021-03-31 17:27 | PT.OTN ---
Current Diagnoses Lesion of ulnar nerve, left upper limb (03/31/21) Pain in left shoulder (03/31/21) Pain in right elbow (03/31/21) Pain in left elbow (03/31/21) Stiffness of other specified joint, not elsewhere classified (03/31/21) Sicca syndrome, unspecified (03/31/21) Physical Therapy Treatment Note PT-OP-A Visit Information Start: 03/24/21 17:42 Freq: Status: Active Protocol: Document 03/31/21 16:47 DCW (Rec: 03/31/21 17:27 DCW [id number]) Out-Patient Physical Therapy Visit Information Visit Information Visit Type Treatment Note Visit Start Time 16:47 Visit Stop Time 17:30 Total Visit Minutes 43 Visit Number 3 Number of HEALTH INFORMATION PROVIDER Visits 0 Evaluation Information Evaluation Date 03/24/21 PT-OP-B Current Condition Start: 03/24/21 17:42 Freq: Status: Active Protocol: Document 03/24/21 16:45 DCW (Rec: 03/24/21 17:51 DCW [id number]) Current Condition History of Current Condition Onset Date 7 month history Current Complaints shoulder, elbow, forearm, and hand pain, L>R History of Current Condition Pt is a 50 year old female presenting with a seven month history of elbow pain with radicular symptoms down forearm and into medial aspect of hands bilaterally, L>>R. Pt notes that overall, her symptoms have improved greatly over the last two weeks, however she has also begun to experience cervical and left shoulder pain and tightness, with continuing radiating symptoms to the left hand. 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 Treatment Goals Patient/Caregiver Goals Improve hand strength, improve cervical ROM, decrease hand pain PT-OP-C Subjective Start: 03/24/21 17:42 Freq: Status: Active Protocol: Document 03/31/21 16:47 DCW (Rec: 03/31/21 17:27 DCW [id number]) OP-PT Subjective Patient Comments Patient Comments Pt reports she is excellent today, I haven't felt anything. PT-OP-F Manual Assessment Start: 03/25/21 09:39 Freq: Status: Active Protocol: Document 03/24/21 16:45 DCW (Rec: 03/25/21 09:40 DCW [id number]) Manual Assessments Soft Tissue Assessment Soft Tissue Mobility Assessment Moderate tone and tenderness to palpation 2/4: Pain with wincing along bilateral scalenes, left upper trap, left paraspinals, left forearm PT-OP-K Range of Motion Start: 03/24/21 17:42 Freq: Status: Active Protocol: Document 03/24/21 16:45 DCW (Rec: 03/24/21 17:54 DCW [id number]) Cervical Spine Range of Motion Cervical Spine Active Degrees Testing Position Sitting Flexion 50 Extension 45 Rotation Left 55 Rotation Right 65 Lateral Flexion Left 45 Lateral Flexion Right 30 ROM Limitations Soft Tissue Tightness,Muscle Tone Shoulder Goniometric Range of Motion Shoulder Bilateral AROM Shoulder ROM WFL Yes Testing Position Sitting PT-OP-L Special Tests Start: 03/24/21 17:42 Freq: Status: Active Protocol: Document 03/24/21 16:45 DCW (Rec: 03/24/21 17:54 DCW [id number]) Special Tests Cervical Spine Special Tests Spurling's Test Test Results Negative Traction Test Results Negative Slump Test Results Negative Passive Neck Flexion Test Results Negative Foraminal Compression Test Results Negative PT-OP-M Strength Start: 03/24/21 17:42 Freq: Status: Active Protocol: Document 03/24/21 16:45 DCW (Rec: 03/24/21 17:54 DCW [id number]) Hand Sports Administrator/Pinch Strength Hand Dominance Hand Dominance Right Hand Strength Right Sports Administrator (lbs) 40.00 Comments 3-trial average (45, 40, 35) Left Sports Administrator (lbs) 21.67 Comments 3-trial average (25, 20, 20) PT-OP-Q Treatments Start: 03/24/21 17:42 Freq: Status: Active Protocol: Document 03/31/21 16:47 DCW (Rec: 03/31/21 17:27 DCW [id number]) Therapeutic Exercises Sitting Exercises 3 Sitting Exercise Name Cervical Rotation vs resistance Side bilateral Resistance Lv 2 Equipment Used T-band 2 Sitting Exercise Name Upper trap stretch Side bilateral Comments HEP Manual Therapy Treatment Soft Tissue Mobilization 3 Body Location B Levator Mobilization Type Strumming,Sustained Pressure, Trigger Point Release Body Position Supine 2 Body Location B Scalenes Mobilization Type Strumming,Sustained Pressure, Trigger Point Release Body Position Supine 1 Body Location B Upper Trap Mobilization Type Strumming,Sustained Pressure, Trigger Point Release Body Position Supine PT-OP-T Assessment and Plan Start: 03/24/21 17:42 Freq: Status: Active Protocol: Document 03/31/21 16:47 DCW (Rec: 03/31/21 17:27 DCW [id number]) Physical Therapy Assessment Impairments Impairments Functional Activities, Functional Mobility,ROM,Soft Tissue Mobility,Strength Goals Three Impairment Pt shows bilateral balance wheel facer weakness, left worse than right Longterm Goal (LTG) Pt to increase bilateral balance wheel facer strength to at least 50 pounds to improve ability to open jars LTG Duration 05/26/21 Two Impairment Pt experiences difficulty turning neck when driving car Plastic Extruding Machine Operator Goal (LTG) Pt to increased left cervical rotation to at least 65? to improve safety in driving LTG Duration 05/26/21 One Impairment Pt does not have an appropriate home exercise program Short Term Goal (STG) Pt to be independent and compliant with an appropriate HEP STG Duration 04/25/21 Assessment Summary Assessment Pt showing good progress with tone through her upper trap and scalenes, improved cervical mobility overall Physical Therapy Plan Frequency and Duration Frequency of Treatment 2x/Week Duration of Treatment Two months Plan of Care Start Date 03/24/21 Plan of Care End Date 05/25/21 Therapeutic Interventions Therapeutic Interventions Home Exercise Program,Joint Mobilizations,Manual Therapy, Neuromuscular Re-education, Patient/Caregiver Education, Self-Care/Home Management,Soft Tissue Mobilization, Therapeutic Activities, Therapeutic Exercises Modalities Cold Pack/Ice Massage,Electric Stimulation,Hot Packs, Ultrasound Next Visit Focus/Plan Next Note Type Treatment Note Next Visit Plan STM, Stretching, strengthening
--- NOTE | 2021-04-02 16:48 | PT.OTN ---
Current Diagnoses Lesion of ulnar nerve, left upper limb (04/02/21) Pain in left shoulder (04/02/21) Pain in right elbow (04/02/21) Pain in left elbow (04/02/21) Stiffness of other specified joint, not elsewhere classified (04/02/21) Sicca syndrome, unspecified (04/02/21) Physical Therapy Treatment Note PT-OP-A Visit Information Start: 03/24/21 17:42 Freq: Status: Active Protocol: Document 04/02/21 16:04 DCW (Rec: 04/02/21 16:47 DCW [id number]) Out-Patient Physical Therapy Visit Information Visit Information Visit Type Treatment Note Visit Start Time 16:04 Visit Stop Time 16:45 Total Visit Minutes 41 Visit Number 4 Number of AUTO BODY STRAIGHTENER Visits 0 Evaluation Information Evaluation Date 03/24/21 PT-OP-B Current Condition Start: 03/24/21 17:42 Freq: Status: Active Protocol: Document 03/24/21 16:45 DCW (Rec: 03/24/21 17:51 DCW [id number]) Current Condition History of Current Condition Onset Date 7 month history Current Complaints shoulder, elbow, forearm, and hand pain, L>R History of Current Condition Pt is a 50 year old female presenting with a seven month history of elbow pain with radicular symptoms down forearm and into medial aspect of hands bilaterally, L>>R. Pt notes that overall, her symptoms have improved greatly over the last two weeks, however she has also begun to experience cervical and left shoulder pain and tightness, with continuing radiating symptoms to the left hand. 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 Treatment Goals Patient/Caregiver Goals Improve hand strength, improve cervical ROM, decrease hand pain PT-OP-C Subjective Start: 03/24/21 17:42 Freq: Status: Active Protocol: Document 04/02/21 16:04 DCW (Rec: 04/02/21 16:47 DCW [id number]) OP-PT Subjective Patient Comments Patient Comments A little bit of tightness in the neck, and then still some stuff in the elbows. PT-OP-F Manual Assessment Start: 03/25/21 09:39 Freq: Status: Active Protocol: Document 03/24/21 16:45 DCW (Rec: 03/25/21 09:40 DCW [id number]) Manual Assessments Soft Tissue Assessment Soft Tissue Mobility Assessment Moderate tone and tenderness to palpation 2/4: Pain with wincing along bilateral scalenes, left upper trap, left paraspinals, left forearm PT-OP-K Range of Motion Start: 03/24/21 17:42 Freq: Status: Active Protocol: Document 03/24/21 16:45 DCW (Rec: 03/24/21 17:54 DCW [id number]) Cervical Spine Range of Motion Cervical Spine Active Degrees Testing Position Sitting Flexion 50 Extension 45 Rotation Left 55 Rotation Right 65 Lateral Flexion Left 45 Lateral Flexion Right 30 ROM Limitations Soft Tissue Tightness,Muscle Tone Shoulder Goniometric Range of Motion Shoulder Bilateral AROM Shoulder ROM WFL Yes Testing Position Sitting PT-OP-L Special Tests Start: 03/24/21 17:42 Freq: Status: Active Protocol: Document 03/24/21 16:45 DCW (Rec: 03/24/21 17:54 DCW [id number]) Special Tests Cervical Spine Special Tests Spurling's Test Test Results Negative Traction Test Results Negative Slump Test Results Negative Passive Neck Flexion Test Results Negative Foraminal Compression Test Results Negative PT-OP-M Strength Start: 03/24/21 17:42 Freq: Status: Active Protocol: Document 03/24/21 16:45 DCW (Rec: 03/24/21 17:54 DCW [id number]) Hand Rn Endocrinology/Pinch Strength Hand Dominance Hand Dominance Right Hand Strength Right Rn Endocrinology (lbs) 40.00 Comments 3-trial average (45, 40, 35) Left Rn Endocrinology (lbs) 21.67 Comments 3-trial average (25, 20, 20) PT-OP-Q Treatments Start: 03/24/21 17:42 Freq: Status: Active Protocol: Document 04/02/21 16:04 DCW (Rec: 04/02/21 16:47 DCW [id number]) Manual Therapy Treatment Soft Tissue Mobilization 3 Body Location B Levator Mobilization Type Strumming,Sustained Pressure, Trigger Point Release Body Position Supine 2 Body Location B Scalenes Mobilization Type Strumming,Sustained Pressure, Trigger Point Release Body Position Supine 1 Body Location B Upper Trap Mobilization Type Strumming,Sustained Pressure, Trigger Point Release Body Position Supine PT-OP-R Modalities Start: 03/24/21 17:42 Freq: Status: Active Protocol: Document 04/02/21 16:04 DCW (Rec: 04/02/21 16:48 DCW [id number]) Ultrasound Therapy Treatment Medial Elbow Treatment Duration (minutes) 10 Patient Position Supine Coupling Medium Ultrasound Gel Applicator Size (cm2) 5 Frequency Setting (mHz) 3 Mode Setting Pulsed Duty Cycle 50% Intensity Setting (w/cm2) 1.0 Comments 5' each medial elbow PT-OP-T Assessment and Plan Start: 03/24/21 17:42 Freq: Status: Active Protocol: Document 04/02/21 16:04 DCW (Rec: 04/02/21 16:47 DCW [id number]) Physical Therapy Assessment Impairments Impairments Functional Activities, Functional Mobility,ROM,Soft Tissue Mobility,Strength Goals Three Impairment Pt shows bilateral medical practitioners weakness, left worse than right Veterinary Pharmacologist Goal (LTG) Pt to increase bilateral medical practitioners strength to at least 50 pounds to improve ability to open jars LTG Duration 05/26/21 Two Impairment Pt experiences difficulty turning neck when driving car [facility] Goal (LTG) Pt to increased left cervical rotation to at least 65? to improve safety in driving LTG Duration 05/26/21 One Impairment Pt does not have an appropriate home exercise program Short Term Goal (STG) Pt to be independent and compliant with an appropriate HEP STG Duration 04/25/21 Assessment Summary Assessment Pt continues to show some progress with UT tone, however still experiencing increased tingling B medial hands, trial of US on B medial elbows today. Physical Therapy Plan Frequency and Duration Frequency of Treatment 2x/Week Duration of Treatment Two months Plan of Care Start Date 03/24/21 Plan of Care End Date 05/25/21 Therapeutic Interventions Therapeutic Interventions Home Exercise Program,Joint Mobilizations,Manual Therapy, Neuromuscular Re-education, Patient/Caregiver Education, Self-Care/Home Management,Soft Tissue Mobilization, Therapeutic Activities, Therapeutic Exercises Modalities Cold Pack/Ice Massage,Electric Stimulation,Hot Packs, Ultrasound Next Visit Focus/Plan Next Note Type Treatment Note Next Visit Plan STM, Stretching, strengthening
--- NOTE | 2021-04-08 17:38 | PT.OTN ---
Current Diagnoses Lesion of ulnar nerve, left upper limb (04/08/21) Pain in left shoulder (04/08/21) Pain in right elbow (04/08/21) Pain in left elbow (04/08/21) Stiffness of other specified joint, not elsewhere classified (04/08/21) Sicca syndrome, unspecified (04/08/21) Physical Therapy Treatment Note PT-OP-A Visit Information Start: 03/24/21 17:42 Freq: Status: Active Protocol: Document 04/08/21 16:47 DCW (Rec: 04/08/21 17:38 DCW [id number]) Out-Patient Physical Therapy Visit Information Visit Information Visit Type Treatment Note Visit Start Time 16:47 Visit Stop Time 17:30 Total Visit Minutes 43 Visit Number 5 Number of SHAREPOINT CONSULTANT Visits 0 Evaluation Information Evaluation Date 03/24/21 PT-OP-B Current Condition Start: 03/24/21 17:42 Freq: Status: Active Protocol: Document 03/24/21 16:45 DCW (Rec: 03/24/21 17:51 DCW [id number]) Current Condition History of Current Condition Onset Date 7 month history Current Complaints shoulder, elbow, forearm, and hand pain, L>R History of Current Condition Pt is a 50 year old female presenting with a seven month history of elbow pain with radicular symptoms down forearm and into medial aspect of hands bilaterally, L>>R. Pt notes that overall, her symptoms have improved greatly over the last two weeks, however she has also begun to experience cervical and left shoulder pain and tightness, with continuing radiating symptoms to the left hand. 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 Treatment Goals Patient/Caregiver Goals Improve hand strength, improve cervical ROM, decrease hand pain PT-OP-C Subjective Start: 03/24/21 17:42 Freq: Status: Active Protocol: Document 04/08/21 16:47 DCW (Rec: 04/08/21 17:38 DCW [id number]) OP-PT Subjective Patient Comments Patient Comments Pt a little tight, notes she has had some intermittent soreness at the elbows. PT-OP-F Manual Assessment Start: 03/25/21 09:39 Freq: Status: Active Protocol: Document 03/24/21 16:45 DCW (Rec: 03/25/21 09:40 DCW [id number]) Manual Assessments Soft Tissue Assessment Soft Tissue Mobility Assessment Moderate tone and tenderness to palpation 2/4: Pain with wincing along bilateral scalenes, left upper trap, left paraspinals, left forearm PT-OP-K Range of Motion Start: 03/24/21 17:42 Freq: Status: Active Protocol: Document 03/24/21 16:45 DCW (Rec: 03/24/21 17:54 DCW [id number]) Cervical Spine Range of Motion Cervical Spine Active Degrees Testing Position Sitting Flexion 50 Extension 45 Rotation Left 55 Rotation Right 65 Lateral Flexion Left 45 Lateral Flexion Right 30 ROM Limitations Soft Tissue Tightness,Muscle Tone Shoulder Goniometric Range of Motion Shoulder Bilateral AROM Shoulder ROM WFL Yes Testing Position Sitting PT-OP-L Special Tests Start: 03/24/21 17:42 Freq: Status: Active Protocol: Document 03/24/21 16:45 DCW (Rec: 03/24/21 17:54 DCW [id number]) Special Tests Cervical Spine Special Tests Spurling's Test Test Results Negative Traction Test Results Negative Slump Test Results Negative Passive Neck Flexion Test Results Negative Foraminal Compression Test Results Negative PT-OP-M Strength Start: 03/24/21 17:42 Freq: Status: Active Protocol: Document 03/24/21 16:45 DCW (Rec: 03/24/21 17:54 DCW [id number]) Hand Extract Operator/Pinch Strength Hand Dominance Hand Dominance Right Hand Strength Right Extract Operator (lbs) 40.00 Comments 3-trial average (45, 40, 35) Left Extract Operator (lbs) 21.67 Comments 3-trial average (25, 20, 20) PT-OP-Q Treatments Start: 03/24/21 17:42 Freq: Status: Active Protocol: Document 04/08/21 16:47 DCW (Rec: 04/08/21 17:38 DCW [id number]) Manual Therapy Treatment Soft Tissue Mobilization 3 Body Location B Levator Mobilization Type Strumming,Sustained Pressure, Trigger Point Release Body Position Supine 2 Body Location B Scalenes Mobilization Type Strumming,Sustained Pressure, Trigger Point Release Body Position Supine 1 Body Location B Upper Trap Mobilization Type Strumming,Sustained Pressure, Trigger Point Release Body Position Supine PT-OP-R Modalities Start: 03/24/21 17:42 Freq: Status: Active Protocol: Document 04/02/21 16:04 DCW (Rec: 04/02/21 16:48 DCW [id number]) Ultrasound Therapy Treatment Medial Elbow Treatment Duration (minutes) 10 Patient Position Supine Coupling Medium Ultrasound Gel Applicator Size (cm2) 5 Frequency Setting (mHz) 3 Mode Setting Pulsed Duty Cycle 50% Intensity Setting (w/cm2) 1.0 Comments 5' each medial elbow PT-OP-T Assessment and Plan Start: 03/24/21 17:42 Freq: Status: Active Protocol: Document 04/08/21 16:47 DCW (Rec: 04/08/21 17:38 DCW [id number]) Physical Therapy Assessment Impairments Impairments Functional Activities, Functional Mobility,ROM,Soft Tissue Mobility,Strength Goals Three Impairment Pt shows bilateral ornamental plaster sticker weakness, left worse than right Auditing Control Clerk Goal (LTG) Pt to increase bilateral ornamental plaster sticker strength to at least 50 pounds to improve ability to open jars LTG Duration 05/26/21 Two Impairment Pt experiences difficulty turning neck when driving car Auditing Control Clerk Goal (LTG) Pt to increased left cervical rotation to at least 65? to improve safety in driving LTG Duration 05/26/21 One Impairment Pt does not have an appropriate home exercise program Short Term Goal (STG) Pt to be independent and compliant with an appropriate HEP STG Duration 04/25/21 Assessment Summary Assessment Pt tolerated treatment well today, however still has some difficulty with hand numbness, did not benefit from US last week. Physical Therapy Plan Frequency and Duration Frequency of Treatment 2x/Week Duration of Treatment Two months Plan of Care Start Date 03/24/21 Plan of Care End Date 05/25/21 Therapeutic Interventions Therapeutic Interventions Home Exercise Program,Joint Mobilizations,Manual Therapy, Neuromuscular Re-education, Patient/Caregiver Education, Self-Care/Home Management,Soft Tissue Mobilization, Therapeutic Activities, Therapeutic Exercises Modalities Cold Pack/Ice Massage,Electric Stimulation,Hot Packs, Ultrasound Next Visit Focus/Plan Next Note Type Treatment Note Next Visit Plan STM, Stretching, strengthening
--- NOTE | 2021-04-17 16:42 | PT.OTN ---
Current Diagnoses Lesion of ulnar nerve, left upper limb (04/17/21) Pain in left shoulder (04/17/21) Pain in right elbow (04/17/21) Pain in left elbow (04/17/21) Stiffness of other specified joint, not elsewhere classified (04/17/21) Sicca syndrome, unspecified (04/17/21) Physical Therapy Treatment Note PT-OP-A Visit Information Start: 03/24/21 17:42 Freq: Status: Active Protocol: Document 04/17/21 16:00 DCW (Rec: 04/17/21 16:42 DCW [id number]) Out-Patient Physical Therapy Visit Information Visit Information Visit Type Treatment Note Visit Start Time 16:00 Visit Stop Time 16:45 Total Visit Minutes 45 Visit Number 6 Number of COURTROOM DEPUTY Visits 0 Evaluation Information Evaluation Date 03/24/21 PT-OP-B Current Condition Start: 03/24/21 17:42 Freq: Status: Active Protocol: Document 03/24/21 16:45 DCW (Rec: 03/24/21 17:51 DCW [id number]) Current Condition History of Current Condition Onset Date 7 month history Current Complaints shoulder, elbow, forearm, and hand pain, L>R History of Current Condition Pt is a 50 year old female presenting with a seven month history of elbow pain with radicular symptoms down forearm and into medial aspect of hands bilaterally, L>>R. Pt notes that overall, her symptoms have improved greatly over the last two weeks, however she has also begun to experience cervical and left shoulder pain and tightness, with continuing radiating symptoms to the left hand. 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 Treatment Goals Patient/Caregiver Goals Improve hand strength, improve cervical ROM, decrease hand pain PT-OP-C Subjective Start: 03/24/21 17:42 Freq: Status: Active Protocol: Document 04/17/21 16:00 DCW (Rec: 04/17/21 16:42 DCW [id number]) OP-PT Subjective Patient Comments Patient Comments Notes her shoulders have been good, but her left arm has been weird the past few days , has been feeling muscle spasms in her upper arm. PT-OP-F Manual Assessment Start: 03/25/21 09:39 Freq: Status: Active Protocol: Document 03/24/21 16:45 DCW (Rec: 03/25/21 09:40 DCW [id number]) Manual Assessments Soft Tissue Assessment Soft Tissue Mobility Assessment Moderate tone and tenderness to palpation 2/4: Pain with wincing along bilateral scalenes, left upper trap, left paraspinals, left forearm PT-OP-K Range of Motion Start: 03/24/21 17:42 Freq: Status: Active Protocol: Document 03/24/21 16:45 DCW (Rec: 03/24/21 17:54 DCW [id number]) Cervical Spine Range of Motion Cervical Spine Active Degrees Testing Position Sitting Flexion 50 Extension 45 Rotation Left 55 Rotation Right 65 Lateral Flexion Left 45 Lateral Flexion Right 30 ROM Limitations Soft Tissue Tightness,Muscle Tone Shoulder Goniometric Range of Motion Shoulder Bilateral AROM Shoulder ROM WFL Yes Testing Position Sitting PT-OP-L Special Tests Start: 03/24/21 17:42 Freq: Status: Active Protocol: Document 03/24/21 16:45 DCW (Rec: 03/24/21 17:54 DCW [id number]) Special Tests Cervical Spine Special Tests Spurling's Test Test Results Negative Traction Test Results Negative Slump Test Results Negative Passive Neck Flexion Test Results Negative Foraminal Compression Test Results Negative PT-OP-M Strength Start: 03/24/21 17:42 Freq: Status: Active Protocol: Document 03/24/21 16:45 DCW (Rec: 03/24/21 17:54 DCW [id number]) Hand Floral Assistant/Pinch Strength Hand Dominance Hand Dominance Right Hand Strength Right Floral Assistant (lbs) 40.00 Comments 3-trial average (45, 40, 35) Left Floral Assistant (lbs) 21.67 Comments 3-trial average (25, 20, 20) PT-OP-Q Treatments Start: 03/24/21 17:42 Freq: Status: Active Protocol: Document 04/17/21 16:00 DCW (Rec: 04/17/21 16:42 DCW [id number]) Manual Therapy Treatment Soft Tissue Mobilization 3 Body Location B Levator Mobilization Type Strumming,Sustained Pressure, Trigger Point Release Body Position Supine 2 Body Location B Scalenes Mobilization Type Strumming,Sustained Pressure, Trigger Point Release Body Position Supine 1 Body Location B Upper Trap Mobilization Type Strumming,Sustained Pressure, Trigger Point Release Body Position Supine Joint Mobilizations 1 Joint L GH Direction Inf Grade III PT-OP-R Modalities Start: 03/24/21 17:42 Freq: Status: Active Protocol: Document 04/02/21 16:04 DCW (Rec: 04/02/21 16:48 DCW [id number]) Ultrasound Therapy Treatment Medial Elbow Treatment Duration (minutes) 10 Patient Position Supine Coupling Medium Ultrasound Gel Applicator Size (cm2) 5 Frequency Setting (mHz) 3 Mode Setting Pulsed Duty Cycle 50% Intensity Setting (w/cm2) 1.0 Comments 5' each medial elbow PT-OP-T Assessment and Plan Start: 03/24/21 17:42 Freq: Status: Active Protocol: Document 04/17/21 16:00 DCW (Rec: 04/17/21 16:42 DCW [id number]) Physical Therapy Assessment Impairments Impairments Functional Activities, Functional Mobility,ROM,Soft Tissue Mobility,Strength Goals Three Impairment Pt shows bilateral well logging captain mud analysis weakness, left worse than right Detention Goal (LTG) Pt to increase bilateral well logging captain mud analysis strength to at least 50 pounds to improve ability to open jars LTG Duration 05/26/21 Two Impairment Pt experiences difficulty turning neck when driving car Multimedia Producer Goal (LTG) Pt to increased left cervical rotation to at least 65? to improve safety in driving LTG Duration 05/26/21 One Impairment Pt does not have an appropriate home exercise program Short Term Goal (STG) Pt to be independent and compliant with an appropriate HEP STG Duration 04/25/21 Assessment Summary Assessment Pt progress well, less frequent tingling in hands, decreased overall tone. Physical Therapy Plan Frequency and Duration Frequency of Treatment 2x/Week Duration of Treatment Two months Plan of Care Start Date 03/24/21 Plan of Care End Date 05/25/21 Therapeutic Interventions Therapeutic Interventions Home Exercise Program,Joint Mobilizations,Manual Therapy, Neuromuscular Re-education, Patient/Caregiver Education, Self-Care/Home Management,Soft Tissue Mobilization, Therapeutic Activities, Therapeutic Exercises Modalities Cold Pack/Ice Massage,Electric Stimulation,Hot Packs, Ultrasound Next Visit Focus/Plan Next Note Type Treatment Note Next Visit Plan STM, Stretching, strengthening
--- NOTE | 2021-04-22 16:45 | PT.OTN ---
Current Diagnoses Lesion of ulnar nerve, left upper limb (04/22/21) Pain in left shoulder (04/22/21) Pain in right elbow (04/22/21) Pain in left elbow (04/22/21) Stiffness of other specified joint, not elsewhere classified (04/22/21) Sicca syndrome, unspecified (04/22/21) Physical Therapy Treatment Note PT-OP-A Visit Information Start: 03/24/21 17:42 Freq: Status: Active Protocol: Document 04/22/21 16:00 DCW (Rec: 04/22/21 16:45 DCW [id number]) Out-Patient Physical Therapy Visit Information Visit Information Visit Type Treatment Note Visit Start Time 16:00 Visit Stop Time 16:45 Total Visit Minutes 45 Visit Number 7 Number of LOG PEELER Visits 0 Evaluation Information Evaluation Date 03/24/21 PT-OP-B Current Condition Start: 03/24/21 17:42 Freq: Status: Active Protocol: Document 03/24/21 16:45 DCW (Rec: 03/24/21 17:51 DCW [id number]) Current Condition History of Current Condition Onset Date 7 month history Current Complaints shoulder, elbow, forearm, and hand pain, L>R History of Current Condition Pt is a 50 year old female presenting with a seven month history of elbow pain with radicular symptoms down forearm and into medial aspect of hands bilaterally, L>>R. Pt notes that overall, her symptoms have improved greatly over the last two weeks, however she has also begun to experience cervical and left shoulder pain and tightness, with continuing radiating symptoms to the left hand. 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 Treatment Goals Patient/Caregiver Goals Improve hand strength, improve cervical ROM, decrease hand pain PT-OP-C Subjective Start: 03/24/21 17:42 Freq: Status: Active Protocol: Document 04/22/21 16:00 DCW (Rec: 04/22/21 16:45 DCW [id number]) OP-PT Subjective Patient Comments Patient Comments Pt reports she is feeling pretty good today. Does note that she woke up a few nights with R arm numbness. PT-OP-F Manual Assessment Start: 03/25/21 09:39 Freq: Status: Active Protocol: Document 03/24/21 16:45 DCW (Rec: 03/25/21 09:40 DCW [id number]) Manual Assessments Soft Tissue Assessment Soft Tissue Mobility Assessment Moderate tone and tenderness to palpation 2/4: Pain with wincing along bilateral scalenes, left upper trap, left paraspinals, left forearm PT-OP-K Range of Motion Start: 03/24/21 17:42 Freq: Status: Active Protocol: Document 03/24/21 16:45 DCW (Rec: 03/24/21 17:54 DCW [id number]) Cervical Spine Range of Motion Cervical Spine Active Degrees Testing Position Sitting Flexion 50 Extension 45 Rotation Left 55 Rotation Right 65 Lateral Flexion Left 45 Lateral Flexion Right 30 ROM Limitations Soft Tissue Tightness,Muscle Tone Shoulder Goniometric Range of Motion Shoulder Bilateral AROM Shoulder ROM WFL Yes Testing Position Sitting PT-OP-L Special Tests Start: 03/24/21 17:42 Freq: Status: Active Protocol: Document 03/24/21 16:45 DCW (Rec: 03/24/21 17:54 DCW [id number]) Special Tests Cervical Spine Special Tests Spurling's Test Test Results Negative Traction Test Results Negative Slump Test Results Negative Passive Neck Flexion Test Results Negative Foraminal Compression Test Results Negative PT-OP-M Strength Start: 03/24/21 17:42 Freq: Status: Active Protocol: Document 03/24/21 16:45 DCW (Rec: 03/24/21 17:54 DCW [id number]) Hand Deputy Head/Pinch Strength Hand Dominance Hand Dominance Right Hand Strength Right Deputy Head (lbs) 40.00 Comments 3-trial average (45, 40, 35) Left Deputy Head (lbs) 21.67 Comments 3-trial average (25, 20, 20) PT-OP-Q Treatments Start: 03/24/21 17:42 Freq: Status: Active Protocol: Document 04/22/21 16:00 DCW (Rec: 04/22/21 16:45 DCW [id number]) Manual Therapy Treatment Soft Tissue Mobilization 3 Body Location B Levator Mobilization Type Strumming,Sustained Pressure, Trigger Point Release Body Position Supine 2 Body Location B Scalenes Mobilization Type Strumming,Sustained Pressure, Trigger Point Release Body Position Supine 1 Body Location B Upper Trap Mobilization Type Strumming,Sustained Pressure, Trigger Point Release Body Position Supine Joint Mobilizations 1 Joint L GH Direction Inf Grade III PT-OP-R Modalities Start: 03/24/21 17:42 Freq: Status: Active Protocol: Document 04/02/21 16:04 DCW (Rec: 04/02/21 16:48 DCW [id number]) Ultrasound Therapy Treatment Medial Elbow Treatment Duration (minutes) 10 Patient Position Supine Coupling Medium Ultrasound Gel Applicator Size (cm2) 5 Frequency Setting (mHz) 3 Mode Setting Pulsed Duty Cycle 50% Intensity Setting (w/cm2) 1.0 Comments 5' each medial elbow PT-OP-T Assessment and Plan Start: 03/24/21 17:42 Freq: Status: Active Protocol: Document 04/22/21 16:00 DCW (Rec: 04/22/21 16:45 DCW [id number]) Physical Therapy Assessment Impairments Impairments Functional Activities, Functional Mobility,ROM,Soft Tissue Mobility,Strength Goals Three Impairment Pt shows bilateral soft top installer weakness, left worse than right Paedodontist Goal (LTG) Pt to increase bilateral soft top installer strength to at least 50 pounds to improve ability to open jars LTG Duration 05/26/21 Two Impairment Pt experiences difficulty turning neck when driving car Paedodontist Goal (LTG) Pt to increased left cervical rotation to at least 65? to improve safety in driving LTG Duration 05/26/21 One Impairment Pt does not have an appropriate home exercise program Short Term Goal (STG) Pt to be independent and compliant with an appropriate HEP STG Duration 04/25/21 Assessment Summary Assessment Pt showing good improvement with overall tone, tolerating STM well. Physical Therapy Plan Frequency and Duration Frequency of Treatment 2x/Week Duration of Treatment Two months Plan of Care Start Date 03/24/21 Plan of Care End Date 05/25/21 Therapeutic Interventions Therapeutic Interventions Home Exercise Program,Joint Mobilizations,Manual Therapy, Neuromuscular Re-education, Patient/Caregiver Education, Self-Care/Home Management,Soft Tissue Mobilization, Therapeutic Activities, Therapeutic Exercises Modalities Cold Pack/Ice Massage,Electric Stimulation,Hot Packs, Ultrasound Next Visit Focus/Plan Next Note Type Treatment Note Next Visit Plan STM, Stretching, strengthening
--- NOTE | 2021-04-25 16:50 | PT.OTN ---
Current Diagnoses Lesion of ulnar nerve, left upper limb (04/25/21) Pain in left shoulder (04/25/21) Pain in right elbow (04/25/21) Pain in left elbow (04/25/21) Stiffness of other specified joint, not elsewhere classified (04/25/21) Sicca syndrome, unspecified (04/25/21) Physical Therapy Treatment Note PT-OP-A Visit Information Start: 03/24/21 17:42 Freq: Status: Active Protocol: Document 04/25/21 16:05 DCW (Rec: 04/25/21 16:50 DCW [id number]) Out-Patient Physical Therapy Visit Information Visit Information Visit Type Treatment Note Visit Start Time 16:05 Visit Stop Time 16:45 Total Visit Minutes 40 Visit Number 8 Number of AERIAL PHOTOGRAPH INTERPRETER Visits 0 Evaluation Information Evaluation Date 03/24/21 PT-OP-B Current Condition Start: 03/24/21 17:42 Freq: Status: Active Protocol: Document 03/24/21 16:45 DCW (Rec: 03/24/21 17:51 DCW [id number]) Current Condition History of Current Condition Onset Date 7 month history Current Complaints shoulder, elbow, forearm, and hand pain, L>R History of Current Condition Pt is a 50 year old female presenting with a seven month history of elbow pain with radicular symptoms down forearm and into medial aspect of hands bilaterally, L>>R. Pt notes that overall, her symptoms have improved greatly over the last two weeks, however she has also begun to experience cervical and left shoulder pain and tightness, with continuing radiating symptoms to the left hand. 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 Treatment Goals Patient/Caregiver Goals Improve hand strength, improve cervical ROM, decrease hand pain PT-OP-C Subjective Start: 03/24/21 17:42 Freq: Status: Active Protocol: Document 04/25/21 16:05 DCW (Rec: 04/25/21 16:50 DCW [id number]) OP-PT Subjective Patient Comments Patient Comments After I left last time, my arm was a little tingly for an hour or so, but then it starting feeling a lot better and I havent had any problems since. PT-OP-F Manual Assessment Start: 03/25/21 09:39 Freq: Status: Active Protocol: Document 03/24/21 16:45 DCW (Rec: 03/25/21 09:40 DCW [id number]) Manual Assessments Soft Tissue Assessment Soft Tissue Mobility Assessment Moderate tone and tenderness to palpation 2/4: Pain with wincing along bilateral scalenes, left upper trap, left paraspinals, left forearm PT-OP-K Range of Motion Start: 03/24/21 17:42 Freq: Status: Active Protocol: Document 03/24/21 16:45 DCW (Rec: 03/24/21 17:54 DCW [id number]) Cervical Spine Range of Motion Cervical Spine Active Degrees Testing Position Sitting Flexion 50 Extension 45 Rotation Left 55 Rotation Right 65 Lateral Flexion Left 45 Lateral Flexion Right 30 ROM Limitations Soft Tissue Tightness,Muscle Tone Shoulder Goniometric Range of Motion Shoulder Bilateral AROM Shoulder ROM WFL Yes Testing Position Sitting PT-OP-L Special Tests Start: 03/24/21 17:42 Freq: Status: Active Protocol: Document 03/24/21 16:45 DCW (Rec: 03/24/21 17:54 DCW [id number]) Special Tests Cervical Spine Special Tests Spurling's Test Test Results Negative Traction Test Results Negative Slump Test Results Negative Passive Neck Flexion Test Results Negative Foraminal Compression Test Results Negative PT-OP-M Strength Start: 03/24/21 17:42 Freq: Status: Active Protocol: Document 03/24/21 16:45 DCW (Rec: 03/24/21 17:54 DCW [id number]) Hand Parts Salesperson/Pinch Strength Hand Dominance Hand Dominance Right Hand Strength Right Parts Salesperson (lbs) 40.00 Comments 3-trial average (45, 40, 35) Left Parts Salesperson (lbs) 21.67 Comments 3-trial average (25, 20, 20) PT-OP-Q Treatments Start: 03/24/21 17:42 Freq: Status: Active Protocol: Document 04/25/21 16:05 DCW (Rec: 04/25/21 16:50 DCW [id number]) Manual Therapy Treatment Soft Tissue Mobilization 3 Body Location B Levator Mobilization Type Strumming,Sustained Pressure, Trigger Point Release Body Position Supine 2 Body Location B Scalenes Mobilization Type Strumming,Sustained Pressure, Trigger Point Release Body Position Supine 1 Body Location B Upper Trap Mobilization Type Strumming,Sustained Pressure, Trigger Point Release Body Position Supine Joint Mobilizations 1 Joint L GH Direction Inf Grade III PT-OP-R Modalities Start: 03/24/21 17:42 Freq: Status: Active Protocol: Document 04/02/21 16:04 DCW (Rec: 04/02/21 16:48 DCW [id number]) Ultrasound Therapy Treatment Medial Elbow Treatment Duration (minutes) 10 Patient Position Supine Coupling Medium Ultrasound Gel Applicator Size (cm2) 5 Frequency Setting (mHz) 3 Mode Setting Pulsed Duty Cycle 50% Intensity Setting (w/cm2) 1.0 Comments 5' each medial elbow PT-OP-T Assessment and Plan Start: 03/24/21 17:42 Freq: Status: Active Protocol: Document 04/25/21 16:05 DCW (Rec: 04/25/21 16:50 DCW [id number]) Physical Therapy Assessment Impairments Impairments Functional Activities, Functional Mobility,ROM,Soft Tissue Mobility,Strength Goals Three Impairment Pt shows bilateral compensation agent weakness, left worse than right Buffet Attendant Goal (LTG) Pt to increase bilateral compensation agent strength to at least 50 pounds to improve ability to open jars LTG Duration 05/26/21 Two Impairment Pt experiences difficulty turning neck when driving car [facility]ci Goal (LTG) Pt to increased left cervical rotation to at least 65? to improve safety in driving LTG Duration 05/26/21 One Impairment Pt does not have an appropriate home exercise program Short Term Goal (STG) Pt to be independent and compliant with an appropriate HEP STG Duration 04/25/21 Assessment Summary Assessment Pt having less radicular symptoms since last visit, none during today's treatment. Physical Therapy Plan Frequency and Duration Frequency of Treatment 2x/Week Duration of Treatment Two months Plan of Care Start Date 03/24/21 Plan of Care End Date 05/25/21 Therapeutic Interventions Therapeutic Interventions Home Exercise Program,Joint Mobilizations,Manual Therapy, Neuromuscular Re-education, Patient/Caregiver Education, Self-Care/Home Management,Soft Tissue Mobilization, Therapeutic Activities, Therapeutic Exercises Modalities Cold Pack/Ice Massage,Electric Stimulation,Hot Packs, Ultrasound Next Visit Focus/Plan Next Note Type Treatment Note Next Visit Plan STM, Stretching, strengthening
--- NOTE | 2021-04-29 16:44 | PT.OTN ---
Current Diagnoses Lesion of ulnar nerve, left upper limb (04/29/21) Pain in left shoulder (04/29/21) Pain in right elbow (04/29/21) Pain in left elbow (04/29/21) Stiffness of other specified joint, not elsewhere classified (04/29/21) Sicca syndrome, unspecified (04/29/21) Physical Therapy Treatment Note PT-OP-A Visit Information Start: 03/24/21 17:42 Freq: Status: Active Protocol: Document 04/29/21 16:00 DCW (Rec: 04/29/21 16:44 DCW [id number]) Out-Patient Physical Therapy Visit Information Visit Information Visit Type Treatment Note Visit Start Time 16:00 Visit Stop Time 16:45 Total Visit Minutes 45 Visit Number 9 Number of SYSTEM CONSULTANT Visits 0 Evaluation Information Evaluation Date 03/24/21 PT-OP-B Current Condition Start: 03/24/21 17:42 Freq: Status: Active Protocol: Document 03/24/21 16:45 DCW (Rec: 03/24/21 17:51 DCW [id number]) Current Condition History of Current Condition Onset Date 7 month history Current Complaints shoulder, elbow, forearm, and hand pain, L>R History of Current Condition Pt is a 50 year old female presenting with a seven month history of elbow pain with radicular symptoms down forearm and into medial aspect of hands bilaterally, L>>R. Pt notes that overall, her symptoms have improved greatly over the last two weeks, however she has also begun to experience cervical and left shoulder pain and tightness, with continuing radiating symptoms to the left hand. 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 Treatment Goals Patient/Caregiver Goals Improve hand strength, improve cervical ROM, decrease hand pain PT-OP-C Subjective Start: 03/24/21 17:42 Freq: Status: Active Protocol: Document 04/29/21 16:00 DCW (Rec: 04/29/21 16:44 DCW [id number]) OP-PT Subjective Patient Comments Patient Comments Pt notes no tingling in her arms since her last visit. PT-OP-F Manual Assessment Start: 03/25/21 09:39 Freq: Status: Active Protocol: Document 03/24/21 16:45 DCW (Rec: 03/25/21 09:40 DCW [id number]) Manual Assessments Soft Tissue Assessment Soft Tissue Mobility Assessment Moderate tone and tenderness to palpation 2/4: Pain with wincing along bilateral scalenes, left upper trap, left paraspinals, left forearm PT-OP-K Range of Motion Start: 03/24/21 17:42 Freq: Status: Active Protocol: Document 03/24/21 16:45 DCW (Rec: 03/24/21 17:54 DCW [id number]) Cervical Spine Range of Motion Cervical Spine Active Degrees Testing Position Sitting Flexion 50 Extension 45 Rotation Left 55 Rotation Right 65 Lateral Flexion Left 45 Lateral Flexion Right 30 ROM Limitations Soft Tissue Tightness,Muscle Tone Shoulder Goniometric Range of Motion Shoulder Bilateral AROM Shoulder ROM WFL Yes Testing Position Sitting PT-OP-L Special Tests Start: 03/24/21 17:42 Freq: Status: Active Protocol: Document 03/24/21 16:45 DCW (Rec: 03/24/21 17:54 DCW [id number]) Special Tests Cervical Spine Special Tests Spurling's Test Test Results Negative Traction Test Results Negative Slump Test Results Negative Passive Neck Flexion Test Results Negative Foraminal Compression Test Results Negative PT-OP-M Strength Start: 03/24/21 17:42 Freq: Status: Active Protocol: Document 03/24/21 16:45 DCW (Rec: 03/24/21 17:54 DCW [id number]) Hand Motor Vehicles Inspector/Pinch Strength Hand Dominance Hand Dominance Right Hand Strength Right Motor Vehicles Inspector (lbs) 40.00 Comments 3-trial average (45, 40, 35) Left Motor Vehicles Inspector (lbs) 21.67 Comments 3-trial average (25, 20, 20) PT-OP-Q Treatments Start: 03/24/21 17:42 Freq: Status: Active Protocol: Document 04/29/21 16:00 DCW (Rec: 04/29/21 16:44 DCW [id number]) Manual Therapy Treatment Soft Tissue Mobilization 3 Body Location B Levator Mobilization Type Strumming,Sustained Pressure, Trigger Point Release Body Position Supine 2 Body Location B Scalenes Mobilization Type Strumming,Sustained Pressure, Trigger Point Release Body Position Supine 1 Body Location B Upper Trap Mobilization Type Strumming,Sustained Pressure, Trigger Point Release Body Position Supine Joint Mobilizations 1 Joint L GH Direction Inf Grade III PT-OP-R Modalities Start: 03/24/21 17:42 Freq: Status: Active Protocol: Document 04/02/21 16:04 DCW (Rec: 04/02/21 16:48 DCW [id number]) Ultrasound Therapy Treatment Medial Elbow Treatment Duration (minutes) 10 Patient Position Supine Coupling Medium Ultrasound Gel Applicator Size (cm2) 5 Frequency Setting (mHz) 3 Mode Setting Pulsed Duty Cycle 50% Intensity Setting (w/cm2) 1.0 Comments 5' each medial elbow PT-OP-T Assessment and Plan Start: 03/24/21 17:42 Freq: Status: Active Protocol: Document 04/29/21 16:00 DCW (Rec: 04/29/21 16:44 DCW [id number]) Physical Therapy Assessment Impairments Impairments Functional Activities, Functional Mobility,ROM,Soft Tissue Mobility,Strength Goals Three Impairment Pt shows bilateral logger weakness, left worse than right Masonry Instructor Goal (LTG) Pt to increase bilateral logger strength to at least 50 pounds to improve ability to open jars LTG Duration 05/26/21 Two Impairment Pt experiences difficulty turning neck when driving car Masonry Instructor Goal (LTG) Pt to increased left cervical rotation to at least 65? to improve safety in driving LTG Duration 05/26/21 One Impairment Pt does not have an appropriate home exercise program Short Term Goal (STG) Pt to be independent and compliant with an appropriate HEP STG Duration 04/25/21 Assessment Summary Assessment Pt continues to do very well with decreased symptoms. May be approaching discharge. Physical Therapy Plan Frequency and Duration Frequency of Treatment 2x/Week Duration of Treatment Two months Plan of Care Start Date 03/24/21 Plan of Care End Date 05/25/21 Therapeutic Interventions Therapeutic Interventions Home Exercise Program,Joint Mobilizations,Manual Therapy, Neuromuscular Re-education, Patient/Caregiver Education, Self-Care/Home Management,Soft Tissue Mobilization, Therapeutic Activities, Therapeutic Exercises Modalities Cold Pack/Ice Massage,Electric Stimulation,Hot Packs, Ultrasound Next Visit Focus/Plan Next Note Type Treatment Note Next Visit Plan STM, Stretching, strengthening
--- NOTE | 2021-05-02 16:54 | PT.OTN ---
Current Diagnoses Lesion of ulnar nerve, left upper limb (05/02/21) Pain in left shoulder (05/02/21) Pain in right elbow (05/02/21) Pain in left elbow (05/02/21) Stiffness of other specified joint, not elsewhere classified (05/02/21) Sicca syndrome, unspecified (05/02/21) Physical Therapy Treatment Note PT-OP-A Visit Information Start: 03/24/21 17:42 Freq: Status: Active Protocol: Document 05/02/21 16:00 DCW (Rec: 05/02/21 16:54 DCW [id number]) Out-Patient Physical Therapy Visit Information Visit Information Visit Type Treatment Note Visit Start Time 16:00 Visit Stop Time 16:45 Total Visit Minutes 45 Visit Number 10 Number of ANALYSIS OR RESEARCH SAFETY INSPECTOR Visits 0 Evaluation Information Evaluation Date 03/24/21 PT-OP-B Current Condition Start: 03/24/21 17:42 Freq: Status: Active Protocol: Document 03/24/21 16:45 DCW (Rec: 03/24/21 17:51 DCW [id number]) Current Condition History of Current Condition Onset Date 7 month history Current Complaints shoulder, elbow, forearm, and hand pain, L>R History of Current Condition Pt is a 50 year old female presenting with a seven month history of elbow pain with radicular symptoms down forearm and into medial aspect of hands bilaterally, L>>R. Pt notes that overall, her symptoms have improved greatly over the last two weeks, however she has also begun to experience cervical and left shoulder pain and tightness, with continuing radiating symptoms to the left hand. 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 Treatment Goals Patient/Caregiver Goals Improve hand strength, improve cervical ROM, decrease hand pain PT-OP-C Subjective Start: 03/24/21 17:42 Freq: Status: Active Protocol: Document 05/02/21 16:00 DCW (Rec: 05/02/21 16:54 DCW [id number]) OP-PT Subjective Patient Comments Patient Comments Pt has had a few instances of tingling in her arms at night since Wednesday. PT-OP-F Manual Assessment Start: 03/25/21 09:39 Freq: Status: Active Protocol: Document 03/24/21 16:45 DCW (Rec: 03/25/21 09:40 DCW [id number]) Manual Assessments Soft Tissue Assessment Soft Tissue Mobility Assessment Moderate tone and tenderness to palpation 2/4: Pain with wincing along bilateral scalenes, left upper trap, left paraspinals, left forearm PT-OP-K Range of Motion Start: 03/24/21 17:42 Freq: Status: Active Protocol: Document 03/24/21 16:45 DCW (Rec: 03/24/21 17:54 DCW [id number]) Cervical Spine Range of Motion Cervical Spine Active Degrees Testing Position Sitting Flexion 50 Extension 45 Rotation Left 55 Rotation Right 65 Lateral Flexion Left 45 Lateral Flexion Right 30 ROM Limitations Soft Tissue Tightness,Muscle Tone Shoulder Goniometric Range of Motion Shoulder Bilateral AROM Shoulder ROM WFL Yes Testing Position Sitting PT-OP-L Special Tests Start: 03/24/21 17:42 Freq: Status: Active Protocol: Document 03/24/21 16:45 DCW (Rec: 03/24/21 17:54 DCW [id number]) Special Tests Cervical Spine Special Tests Spurling's Test Test Results Negative Traction Test Results Negative Slump Test Results Negative Passive Neck Flexion Test Results Negative Foraminal Compression Test Results Negative PT-OP-M Strength Start: 03/24/21 17:42 Freq: Status: Active Protocol: Document 03/24/21 16:45 DCW (Rec: 03/24/21 17:54 DCW [id number]) Hand Tissue Technician/Pinch Strength Hand Dominance Hand Dominance Right Hand Strength Right Tissue Technician (lbs) 40.00 Comments 3-trial average (45, 40, 35) Left Tissue Technician (lbs) 21.67 Comments 3-trial average (25, 20, 20) PT-OP-Q Treatments Start: 03/24/21 17:42 Freq: Status: Active Protocol: Document 05/02/21 16:00 DCW (Rec: 05/02/21 16:54 DCW [id number]) Manual Therapy Treatment Soft Tissue Mobilization 3 Body Location B Levator Mobilization Type Strumming,Sustained Pressure, Trigger Point Release Body Position Supine 2 Body Location B Scalenes Mobilization Type Strumming,Sustained Pressure, Trigger Point Release Body Position Supine 1 Body Location B Upper Trap Mobilization Type Strumming,Sustained Pressure, Trigger Point Release Body Position Supine Joint Mobilizations 1 Joint L GH Direction Inf Grade III PT-OP-R Modalities Start: 03/24/21 17:42 Freq: Status: Active Protocol: Document 04/02/21 16:04 DCW (Rec: 04/02/21 16:48 DCW [id number]) Ultrasound Therapy Treatment Medial Elbow Treatment Duration (minutes) 10 Patient Position Supine Coupling Medium Ultrasound Gel Applicator Size (cm2) 5 Frequency Setting (mHz) 3 Mode Setting Pulsed Duty Cycle 50% Intensity Setting (w/cm2) 1.0 Comments 5' each medial elbow PT-OP-T Assessment and Plan Start: 03/24/21 17:42 Freq: Status: Active Protocol: Document 05/02/21 16:00 DCW (Rec: 05/02/21 16:54 DCW [id number]) Physical Therapy Assessment Impairments Impairments Functional Activities, Functional Mobility,ROM,Soft Tissue Mobility,Strength Goals Three Impairment Pt shows bilateral voice data communications engineer weakness, left worse than right Cushion Filler Goal (LTG) Pt to increase bilateral voice data communications engineer strength to at least 50 pounds to improve ability to open jars LTG Duration 05/26/21 Two Impairment Pt experiences difficulty turning neck when driving car Half-Way Goal (LTG) Pt to increased left cervical rotation to at least 65? to improve safety in driving LTG Duration 05/26/21 One Impairment Pt does not have an appropriate home exercise program Short Term Goal (STG) Pt to be independent and compliant with an appropriate HEP STG Duration 04/25/21 Assessment Summary Assessment Pt had slight setback recently with return of tingling in her hands, but still tolerating treatment very well . Physical Therapy Plan Frequency and Duration Frequency of Treatment 2x/Week Duration of Treatment Two months Plan of Care Start Date 03/24/21 Plan of Care End Date 05/25/21 Therapeutic Interventions Therapeutic Interventions Home Exercise Program,Joint Mobilizations,Manual Therapy, Neuromuscular Re-education, Patient/Caregiver Education, Self-Care/Home Management,Soft Tissue Mobilization, Therapeutic Activities, Therapeutic Exercises Modalities Cold Pack/Ice Massage,Electric Stimulation,Hot Packs, Ultrasound Next Visit Focus/Plan Next Note Type Treatment Note Next Visit Plan STM, Stretching, strengthening
--- NOTE | 2021-05-06 16:47 | PT.OTN ---
Current Diagnoses Lesion of ulnar nerve, left upper limb (05/06/21) Pain in left shoulder (05/06/21) Pain in right elbow (05/06/21) Pain in left elbow (05/06/21) Stiffness of other specified joint, not elsewhere classified (05/06/21) Sicca syndrome, unspecified (05/06/21) Physical Therapy Treatment Note PT-OP-A Visit Information Start: 03/24/21 17:42 Freq: Status: Active Protocol: Document 05/06/21 16:00 DCW (Rec: 05/06/21 16:47 DCW [id number]) Out-Patient Physical Therapy Visit Information Visit Information Visit Type Treatment Note Visit Start Time 16:00 Visit Stop Time 16:45 Total Visit Minutes 45 Visit Number 11 Number of ENDOSCOPY SUPPORT SPECIALIST Visits 0 Evaluation Information Evaluation Date 03/24/21 PT-OP-B Current Condition Start: 03/24/21 17:42 Freq: Status: Active Protocol: Document 03/24/21 16:45 DCW (Rec: 03/24/21 17:51 DCW [id number]) Current Condition History of Current Condition Onset Date 7 month history Current Complaints shoulder, elbow, forearm, and hand pain, L>R History of Current Condition Pt is a 50 year old female presenting with a seven month history of elbow pain with radicular symptoms down forearm and into medial aspect of hands bilaterally, L>>R. Pt notes that overall, her symptoms have improved greatly over the last two weeks, however she has also begun to experience cervical and left shoulder pain and tightness, with continuing radiating symptoms to the left hand. 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 Treatment Goals Patient/Caregiver Goals Improve hand strength, improve cervical ROM, decrease hand pain PT-OP-C Subjective Start: 03/24/21 17:42 Freq: Status: Active Protocol: Document 05/06/21 16:00 DCW (Rec: 05/06/21 16:47 DCW [id number]) OP-PT Subjective Patient Comments Patient Comments No episodes of UE numbness/ tingling since her last visit. PT-OP-F Manual Assessment Start: 03/25/21 09:39 Freq: Status: Active Protocol: Document 03/24/21 16:45 DCW (Rec: 03/25/21 09:40 DCW [id number]) Manual Assessments Soft Tissue Assessment Soft Tissue Mobility Assessment Moderate tone and tenderness to palpation 2/4: Pain with wincing along bilateral scalenes, left upper trap, left paraspinals, left forearm PT-OP-K Range of Motion Start: 03/24/21 17:42 Freq: Status: Active Protocol: Document 03/24/21 16:45 DCW (Rec: 03/24/21 17:54 DCW [id number]) Cervical Spine Range of Motion Cervical Spine Active Degrees Testing Position Sitting Flexion 50 Extension 45 Rotation Left 55 Rotation Right 65 Lateral Flexion Left 45 Lateral Flexion Right 30 ROM Limitations Soft Tissue Tightness,Muscle Tone Shoulder Goniometric Range of Motion Shoulder Bilateral AROM Shoulder ROM WFL Yes Testing Position Sitting PT-OP-L Special Tests Start: 03/24/21 17:42 Freq: Status: Active Protocol: Document 03/24/21 16:45 DCW (Rec: 03/24/21 17:54 DCW [id number]) Special Tests Cervical Spine Special Tests Spurling's Test Test Results Negative Traction Test Results Negative Slump Test Results Negative Passive Neck Flexion Test Results Negative Foraminal Compression Test Results Negative PT-OP-M Strength Start: 03/24/21 17:42 Freq: Status: Active Protocol: Document 03/24/21 16:45 DCW (Rec: 03/24/21 17:54 DCW [id number]) Hand Chain Builder Loom Control/Pinch Strength Hand Dominance Hand Dominance Right Hand Strength Right Chain Builder Loom Control (lbs) 40.00 Comments 3-trial average (45, 40, 35) Left Chain Builder Loom Control (lbs) 21.67 Comments 3-trial average (25, 20, 20) PT-OP-Q Treatments Start: 03/24/21 17:42 Freq: Status: Active Protocol: Document 05/06/21 16:00 DCW (Rec: 05/06/21 16:47 DCW [id number]) Manual Therapy Treatment Soft Tissue Mobilization 3 Body Location B Levator Mobilization Type Strumming,Sustained Pressure, Trigger Point Release Body Position Supine 2 Body Location B Scalenes Mobilization Type Strumming,Sustained Pressure, Trigger Point Release Body Position Supine 1 Body Location B Upper Trap Mobilization Type Strumming,Sustained Pressure, Trigger Point Release Body Position Supine Joint Mobilizations 1 Joint L GH Direction Inf Grade III PT-OP-R Modalities Start: 03/24/21 17:42 Freq: Status: Active Protocol: Document 04/02/21 16:04 DCW (Rec: 04/02/21 16:48 DCW [id number]) Ultrasound Therapy Treatment Medial Elbow Treatment Duration (minutes) 10 Patient Position Supine Coupling Medium Ultrasound Gel Applicator Size (cm2) 5 Frequency Setting (mHz) 3 Mode Setting Pulsed Duty Cycle 50% Intensity Setting (w/cm2) 1.0 Comments 5' each medial elbow PT-OP-T Assessment and Plan Start: 03/24/21 17:42 Freq: Status: Active Protocol: Document 05/06/21 16:00 DCW (Rec: 05/06/21 16:47 DCW [id number]) Physical Therapy Assessment Impairments Impairments Functional Activities, Functional Mobility,ROM,Soft Tissue Mobility,Strength Goals Three Impairment Pt shows bilateral floor covering contractor weakness, left worse than right Live Source Operator Goal (LTG) Pt to increase bilateral floor covering contractor strength to at least 50 pounds to improve ability to open jars LTG Duration 05/26/21 Two Impairment Pt experiences difficulty turning neck when driving car Live Source Operator Goal (LTG) Pt to increased left cervical rotation to at least 65? to improve safety in driving LTG Duration 05/26/21 One Impairment Pt does not have an appropriate home exercise program Short Term Goal (STG) Pt to be independent and compliant with an appropriate HEP STG Duration 04/25/21 Assessment Summary Assessment Pt doing well, will likely discharge following next appointment to home stretching and strengthening program Physical Therapy Plan Frequency and Duration Frequency of Treatment 2x/Week Duration of Treatment Two months Plan of Care Start Date 03/24/21 Plan of Care End Date 05/25/21 Therapeutic Interventions Therapeutic Interventions Home Exercise Program,Joint Mobilizations,Manual Therapy, Neuromuscular Re-education, Patient/Caregiver Education, Self-Care/Home Management,Soft Tissue Mobilization, Therapeutic Activities, Therapeutic Exercises Modalities Cold Pack/Ice Massage,Electric Stimulation,Hot Packs, Ultrasound Next Visit Focus/Plan Next Note Type Treatment Note Next Visit Plan STM, Stretching, strengthening
--- NOTE | 2021-05-09 16:49 | PT.OTN ---
Current Diagnoses Lesion of ulnar nerve, left upper limb (05/09/21) Pain in left shoulder (05/09/21) Pain in right elbow (05/09/21) Pain in left elbow (05/09/21) Stiffness of other specified joint, not elsewhere classified (05/09/21) Sicca syndrome, unspecified (05/09/21) Physical Therapy Treatment Note PT-OP-A Visit Information Start: 03/24/21 17:42 Freq: Status: Active Protocol: Document 05/09/21 16:00 DCW (Rec: 05/09/21 16:49 DCW [id number]) Out-Patient Physical Therapy Visit Information Visit Information Visit Type Discharge Summary Visit Start Time 16:00 Visit Stop Time 16:45 Total Visit Minutes 45 Visit Number 12 Number of CLOUD ARCHITECT Visits 0 Evaluation Information Evaluation Date 03/24/21 PT-OP-B Current Condition Start: 03/24/21 17:42 Freq: Status: Active Protocol: Document 03/24/21 16:45 DCW (Rec: 03/24/21 17:51 DCW [id number]) Current Condition History of Current Condition Onset Date 7 month history Current Complaints shoulder, elbow, forearm, and hand pain, L>R History of Current Condition Pt is a 50 year old female presenting with a seven month history of elbow pain with radicular symptoms down forearm and into medial aspect of hands bilaterally, L>>R. Pt notes that overall, her symptoms have improved greatly over the last two weeks, however she has also begun to experience cervical and left shoulder pain and tightness, with continuing radiating symptoms to the left hand. 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 Treatment Goals Patient/Caregiver Goals Improve hand strength, improve cervical ROM, decrease hand pain PT-OP-C Subjective Start: 03/24/21 17:42 Freq: Status: Active Protocol: Document 05/09/21 16:00 DCW (Rec: 05/09/21 16:49 DCW [id number]) OP-PT Subjective Patient Comments Patient Comments Pt still having mild tingling in her arms, but willing to continue HEP stretching independently. PT-OP-F Manual Assessment Start: 03/25/21 09:39 Freq: Status: Active Protocol: Document 05/09/21 16:00 DCW (Rec: 05/09/21 16:12 DCW [id number]) Manual Assessments Soft Tissue Assessment Soft Tissue Mobility Assessment Mild tone and tenderness to palpation 1/: Complaint of pain along bilateral scalenes, left upper trap, left paraspinals PT-OP-K Range of Motion Start: 03/24/21 17:42 Freq: Status: Active Protocol: Document 05/09/21 16:00 DCW (Rec: 05/09/21 16:12 DCW [id number]) Cervical Spine Range of Motion Cervical Spine Active Degrees Testing Position Sitting Flexion 55 Extension 50 Rotation Left 60 Rotation Right 65 Lateral Flexion Left 45 Lateral Flexion Right 45 PT-OP-L Special Tests Start: 03/24/21 17:42 Freq: Status: Active Protocol: Document 03/24/21 16:45 DCW (Rec: 03/24/21 17:54 DCW [id number]) Special Tests Cervical Spine Special Tests Spurling's Test Test Results Negative Traction Test Results Negative Slump Test Results Negative Passive Neck Flexion Test Results Negative Foraminal Compression Test Results Negative PT-OP-M Strength Start: 03/24/21 17:42 Freq: Status: Active Protocol: Document 05/09/21 16:00 DCW (Rec: 05/09/21 16:12 DCW [id number]) Hand Stencil Inspector/Pinch Strength Hand Dominance Hand Dominance Right Hand Strength Right Stencil Inspector (lbs) 40.00 Comments 3-trial average (40, 45, 35) Left Stencil Inspector (lbs) 31.67 Comments 3-trial average (35, 30, 30) PT-OP-Q Treatments Start: 03/24/21 17:42 Freq: Status: Active Protocol: Document 05/09/21 16:00 DCW (Rec: 05/09/21 16:49 DCW [id number]) Manual Therapy Treatment Soft Tissue Mobilization 3 Body Location B Levator Mobilization Type Strumming,Sustained Pressure, Trigger Point Release Body Position Supine 2 Body Location B Scalenes Mobilization Type Strumming,Sustained Pressure, Trigger Point Release Body Position Supine 1 Body Location B Upper Trap Mobilization Type Strumming,Sustained Pressure, Trigger Point Release Body Position Supine Joint Mobilizations 1 Joint L GH Direction Inf Grade III PT-OP-R Modalities Start: 03/24/21 17:42 Freq: Status: Active Protocol: Document 04/02/21 16:04 DCW (Rec: 04/02/21 16:48 DCW [id number]) Ultrasound Therapy Treatment Medial Elbow Treatment Duration (minutes) 10 Patient Position Supine Coupling Medium Ultrasound Gel Applicator Size (cm2) 5 Frequency Setting (mHz) 3 Mode Setting Pulsed Duty Cycle 50% Intensity Setting (w/cm2) 1.0 Comments 5' each medial elbow PT-OP-T Assessment and Plan Start: 03/24/21 17:42 Freq: Status: Active Protocol: Document 05/09/21 16:00 DCW (Rec: 05/09/21 16:49 DCW [id number]) Physical Therapy Assessment Impairments Impairments Functional Activities, Functional Mobility,ROM,Soft Tissue Mobility,Strength Goals Three Impairment Pt shows 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 to improve safety in driving LTG Duration 05/26/21 - Improving One Impairment Pt does not have an appropriate home exercise program Short Term Goal (STG) Pt to be independent and compliant with an appropriate HEP STG Duration Met Progress Towards Goals Progress Towards Goals Progressing Toward Goals Assessment Summary Assessment Pt approaching goals, independent with HEP at this time, appropriate for discharge. Physical Therapy Plan Frequency and Duration Frequency of Treatment 2x/Week Duration of Treatment Two months Plan of Care Start Date 03/24/21 Plan of Care End Date 05/25/21 Therapeutic Interventions Therapeutic Interventions Home Exercise Program,Joint Mobilizations,Manual Therapy, Neuromuscular Re-education, Patient/Caregiver Education, Self-Care/Home Management,Soft Tissue Mobilization, Therapeutic Activities, Therapeutic Exercises Modalities Cold Pack/Ice Massage,Electric Stimulation,Hot Packs, Ultrasound Discharge Physical Therapy Discharge Comments Independent with appropriate HEP Next Visit Focus/Plan Next Note Type Discharge Summary
== END 2021-05-14 13:19 | disposition home or self-care (01) ==
LOC: PHYS 16:00
PROVIDERS: PCP Family Medicine; Referring Provider Family Medicine; Visit Provider Family Medicine
DX: M25.521 Pain in right elbow (principal); M25.522 Pain in left elbow; M35.00 Sjogren syndrome, unspecified; M25.69 Stiffness of other specified joint, not elsewhere classified; M25.512 Pain in left shoulder; G56.22 Lesion of ulnar nerve, left upper limb
CPT/HCPCS: 97035; 97110; 97140; 97161

== ENCOUNTER → 2021-05-16 08:25 | Outpatient (CLI) | payer OTHER, SELFPAY ==
[2019-06-30 13:22] VITALS: BMI 36.7
[2021-05-16 08:40] LABS: Bacteria Urine None Seen
[2021-05-16 10:13] LABS: Appearance Urine UA CLEAR; Bilirubin Urine UA NEGATIVE (NEGATIVE); Color Urine UA YELLOW; Glucose Urine UA NEGATIVE (Negative); Ketones Urine UA NEGATIVE (NEGATIVE); Leukocyte Esterase Urine UA 3+ (NEGATIVE); Nitrite Urine UA POSITIVE (Negative); Occult Blood Urine UA 3+ (Negative); Protein Urine UA NEGATIVE (Negative); Specific Gravity Urine UA <=1.005 (1.000-1.035); Urobilinogen Urine UA 0.2 E.U./dL (0.2)
[2021-05-16 10:33] LABS: Culture Indicated Urine Specimen Cultured; RBC Urine 5-10/HPF (0-5/HPF); Squamous Epithelial Cell Urine 0-1 /HPF (0-5/HPF); WBC Urine 10-30/HPF (0-5/HPF)
== END ==
PROVIDERS: PCP Family Medicine; Referring Provider Family Medicine; Visit Provider Family Medicine
DX: N39.0 Urinary tract infection, site not specified (principal)
CPT/HCPCS: 81001; 87077; 87086; 87186

== ENCOUNTER → 2021-05-30 16:39 | Outpatient (CLI) | payer OTHER, SELFPAY ==
[2019-06-30 13:22] VITALS: BMI 36.7
[2021-05-30 18:36] LABS: Appearance Urine UA SL CLOUDY; Bilirubin Urine UA NEGATIVE (NEGATIVE); Color Urine UA YELLOW; Glucose Urine UA NEGATIVE (Negative); Ketones Urine UA NEGATIVE (NEGATIVE); Leukocyte Esterase Urine UA 3+ (NEGATIVE); Nitrite Urine UA NEGATIVE (Negative); Occult Blood Urine UA 1+ (Negative); Protein Urine UA NEGATIVE (Negative); Urobilinogen Urine UA 0.2 E.U./dL (0.2)
[2021-05-30 18:50] LABS: RBC Urine 1-5/HPF (0-5/HPF)
[2021-05-30 18:51] LABS: Amorphous Sediment Urine 1+; Bacteria Urine Many (>30); Culture Indicated Urine Specimen Cultured; Squamous Epithelial Cell Urine 1-5 /HPF (0-5/HPF); WBC Urine 30-100/HPF (0-5/HPF)
== END ==
PROVIDERS: PCP Family Medicine; Referring Provider Family Medicine; Visit Provider Family Medicine
DX: N39.0 Urinary tract infection, site not specified (principal)
CPT/HCPCS: 81001; 87077; 87086; 87186

== ENCOUNTER → 2021-06-04 07:08 | Outpatient (CLI) | payer OTHER, SELFPAY ==
[2019-06-30 13:22] VITALS: BMI 36.7
[2021-06-04 08:54] LABS: Add Manual Diff / Slide Review NO; Basophils Absolute Auto 0 /uL (0-100); Basophils Percent Auto 0.8 % (0-2); Eosinophils Absolute Auto 100 /uL (0-450); Hematocrit 40.5 % (36-46); Hemoglobin 13.2 g/dL (12.0-16.0); Lymphocytes Absolute Auto 500 /uL (1100-4500); Lymphocytes Percent Auto 21.4 % (25-40); Mean Corpuscular HGB Conc 32.5 % (30-36); Mean Corpuscular Hemoglobin 27.7 PG (26-34); Mean Corpuscular Volume 85.2 fL (80-100); Monocytes Absolute Auto 300 /uL (0-900); Monocytes Percent Auto 11.1 % (3-14); Neutrophils Absolute Auto 1600 /uL (1500-7000); Neutrophils Percent Auto 62.7 % (50-75); Platelet Count 156 X10^3/uL (150-400); Red Blood Cell Count 4.76 X10^6/uL (4.0-5.2); Red Cell Distribution Width 14.3 % (11.6-14.8); White Blood Cell Count 2.6 X10^3/uL (4.5-11.0)
[2021-06-04 09:35] LABS: BUN Creatinine Ratio 23.6 (6-22); Blood Urea Nitrogen 30 mg/dL (7-17); Calcium 9.1 mg/dL (8.4-10.2); Carbon Dioxide 26 mmol/L (22-32); Chloride 107 mmol/L (98-107); Estimated Glomerular Filt Rate 44.4 mL/min (>60); Glucose 112 mg/dL (70-100); HEMOLYSIS < 15 (0-50); Potassium 4.8 mmol/L (3.4-5.1); Sodium 140 mmol/L (137-145)
[2021-06-05 06:11] LABS: Parathyroid Hormone Int 45 pg/mL (15-65)
== END ==
PROVIDERS: PCP Family Medicine; Referring Provider Internal Medicine Nephrology; Visit Provider Internal Medicine Nephrology
DX: N18.32 Chronic kidney disease, stage 3b (principal)
CPT/HCPCS: 36415; 80069; 83970; 85025

== ENCOUNTER → 2021-06-27 08:09 | Outpatient (CLI) | payer OTHER, SELFPAY ==
[2021-06-17 10:30] VITALS: BMI 36.7
== END ==
PROVIDERS: PCP Family Medicine; Referring Provider Urology; Visit Provider Urology
DX: R30.0 Dysuria (principal); N18.32 Chronic kidney disease, stage 3b; N30.01 Acute cystitis with hematuria; Q61.5 Medullary cystic kidney; M35.00 Sjogren syndrome, unspecified; N89.8 Other specified noninflammatory disorders of vagina; Z87.442 Personal history of urinary calculi
CPT/HCPCS: 36415; 80048; 81002; 87077; 87086; 87186

== ENCOUNTER → 2021-06-27 08:53 | Outpatient (CLI) | payer OTHER, SELFPAY ==
[2021-06-17 10:30] VITALS: BMI 36.7
[2021-06-27 10:28] LABS: Blood Urea Nitrogen 31 mg/dL (7-17); Calcium 9.5 mg/dL (8.4-10.2); Carbon Dioxide 27 mmol/L (22-32); Chloride 107 mmol/L (98-107); Estimated Glomerular Filt Rate 39.3 mL/min (>60); Glucose 107 mg/dL (70-100); HEMOLYSIS < 15 (0-50); Potassium 4.7 mmol/L (3.4-5.1); Sodium 141 mmol/L (137-145)
== END ==
PROVIDERS: PCP Family Medicine; Referring Provider Urology; Visit Provider Urology
DX: N18.30 Chronic kidney disease, stage 3 unspecified (principal); N39.0 Urinary tract infection, site not specified
CPT/HCPCS: 36415; 80048

== ENCOUNTER → 2021-07-15 15:50 | Outpatient (CLI) | payer OTHER, SELFPAY ==
[2021-06-17 10:30] VITALS: BMI 36.7
[2021-07-15 16:25] LABS: COVID19 -Nasal RAPID Negative (Negative)
== END ==
PROVIDERS: PCP Family Medicine; Visit Provider Urology
DX: N39.0 Urinary tract infection, site not specified (principal); N18.32 Chronic kidney disease, stage 3b; N89.8 Other specified noninflammatory disorders of vagina; Z20.822 Contact with and (suspected) exposure to COVID-19; Z88.8 Allergy status to other drugs, medicaments and biological substances; Z87.442 Personal history of urinary calculi
CPT/HCPCS: 81002; 87077; 87086; 87186; 87635

== ENCOUNTER 2021-07-17 10:02 | Day surgery (SDC) | payer OTHER, SELFPAY ==
[2021-06-17 10:30] VITALS: BMI 36.7
[2021-07-17] VITALS (9 sets, daily range): BP systolic 91–134; BP diastolic 62–95; PULSE 15–103; RESP 12–18; TEMP 36.1–36.2; O2SAT 94–100; BMI 38.7
--- NOTE | 2021-07-17 | DI.RAD.S_ITS ---
PROCEDURE: [place] PYELOGRAM RETROGRADE COMPARISON: CT, KIDNEY/ URETER/BLADDER, 12/11/2015, 10:13. [facility], RENAL COMPLETE, 08/02/2020, 10:48. [facility], RENAL COMPLETE, 01/02/2021, 7:58. INDICATIONS: CYSTO W/ BILATERAL RETROGRADE PYELOGRAM FINDINGS: Intraoperative fluoroscopy images were obtained. A left-sided ureteral stent is placed. Injection of right ureteral orifice demonstrates normal caliber and morphology of the right renal calyx and pelvis. There is focal narrowing of the proximal right ureter just beyond the right ureteropelvic junction at the level of inferior L3. IMPRESSION: 1. Placement of left ureteral stent. 2. Narrowing of the right ureter just below the right UPJ. No hydronephrosis. Dictated by: Jennifer Davies M.D. on 07/18/2021 at 12:41 Approved by: Jennifer Davies M.D. on 07/18/2021 at 12:53
[2021-07-17] MEDS: LACTATED RINGERS 1,000 ML 42 ML IV (10:38)
--- NOTE | 2021-07-17 10:41 | PM.PREOP ---
Pre-operative Note COVID-19 COVID-19 status: Negative Result date/Date tested (Pos, Neg/Pending): 07/15/21 Interval Note History & Physical reviewed/Exam performed by Physician: Yes Changes to H&P: No
[2021-07-17] MEDS: CEFAZOLIN 1 GM VIAL 2 GM IV (11:30)
[2021-07-17] MEDS: IOPAMIDOL 15 ML VIAL INJ (11:33)
--- NOTE | 2021-07-17 11:36 | SUR.OPER ---
Lithotomy on padded OR bed, head on pillow, arms secured on padded arm boards at <90 degrees abduction. Legs secured in padded yellow fins stirrups.
--- NOTE | 2021-07-17 12:16 | PM.OP.1 ---
Procedure & Clinicians Procedure: Cystoscopy with bilateral retrograde pyelogram, left distal ureteral stone basketing and left ureteral stent placement. Same procedure as scheduled: No (Findings stone distal left ureter resulted in basketing and stent) Indications: This is a 50-year-old female with repetitive Klebsiella infections. The patient also has a profound intravenous iodine contrast allergy and us presents for cystoscopy with bilateral retrograde pyelogram to for the evaluation of her repetitive infections. Surgeon: Feliciano Boyd Click Yes if Unassisted: Yes Anesthesia Type: General Operative Notes Findings: External genitalia and urethral meatus normal, urethra normal along its length. Within the bladder there was evidence of cystitis with cystitis glandularis, erythema and a generalized inflamed appearance. In the distal left ureter there was a stone that appeared to be perhaps in the 6-7 mm range. It was very distal and did not appear to be obstructing. The left ureteral orifice was quite patulous and the stone was easily basketed. There did appear to be on the open films perhaps some stones in the left kidney. Right retrograde pyelogram revealed in the very proximal 3rd of the ureter perhaps a crossing vessel. There were no filling defects in the kidney and despite this apparent narrowing it drained normally. The remainder of the ureter was normal. The 7 Guyanese multi length stent was left in good position in the left collecting system. The nylon string was removed. No other lesions were noted. Again there was also question of stones in the right kidney. As noted below these findings will bear further evaluation with a noncontrast CT. Closure Type: not applicable Specimen(s): other (Stone for compositional analysis) Prosthetic devices, grafts, tissues, transplants, or devices: 7 Guyanese multi length ureteral stent left collecting system no string Estimated Blood Loss (mL): 0 Blood products transfused: none Procedure in detail: After informed consent was obtained, patient was identified and brought to the operating room. Patient was then placed on the operative table in the supine position and anesthesia was induced and maintained. After assuring adequate level of anesthesia the patient was then placed in a lithotomy position. Patient was then prepped, draped in a sterile fashion. After prepping, draping and assuring an adequate level of anesthesia a 21 Guyanese cystoscope was passed through the urethra and into the bladder were cystoscopy is performed. They for a scope was then brought in an open images, that is images without contrast were obtained. With her apparently being a stone a cone-tipped catheter was brought an impacted in the left ureteral orifice and the collecting system distal collecting system filled with contrast. This is obviously a stone there wrote no other abnormalities noted on the retrograde. With the finding of the stone a hybrid wire was passed up and into the left collecting system under fluoroscopic visualization. With the safety wire in place a 3 wire basket was then placed in the distal ureter open to dilate. This was then passed above the stone the stone engage and easily dislodged and removed. It was removed in its entirety to be sent for composition analysis. With this done the wire was then backloaded through the scope, the cystoscope reinserted, and the stent passed over the wire into the left collecting system. He was positioned in the upper collecting system under fluoroscopic visualization and in the bladder under direct vision. With the stent in good position the nylon hardness was removed and the stent left in place. Attention was then turned to the right side where a cone-tipped catheter was impacted in the right ureteral orifice and a collecting system filled with contrast. Serial account development representative images were obtained during filling. The cone-tip was then removed and the system observed for drainage. The drainage was good. With these findings in hand in the stent in place the bladder was drained and the cystoscope removed. Patient was awakened, taken to the postanesthesia care unit having tolerated the procedure well. The patient will follow-up in my office in approximately [address] urogram that is a CT abdomen pelvis without contrast. She will continue her Augmentin. Complications: none Post-operative Condition: stable Disposition: PACU Plan for aftercare: Patient follow-up my office [address] urogram.
[2021-07-17] MEDS: PHENAZOPYRIDINE 100 MG TABLET 200 MG PO (13:05)
[2021-07-21 14:36] LABS: Ca oxalate dihydrate 10 % (.); Ca oxalate monohydr 50 % (.); Hydroxyapatite 40 % (.); Size 7x5 mm (.); Stone Analysis Source Ureter (.)
== END 2021-07-17 13:27 | disposition home or self-care (01) ==
PROVIDERS: PCP Family Medicine; Referring Provider Urology; Visit Provider Urology
PROC: (CPT 52352; principal; 2021-07-17 11:45)
DX: N39.0 Urinary tract infection, site not specified (principal); B96.1 Klebsiella pneumoniae [K. pneumoniae] as the cause of diseases classified elsewhere; N20.1 Calculus of ureter; N18.9 Chronic kidney disease, unspecified; G47.33 Obstructive sleep apnea (adult) (pediatric); I10 Essential (primary) hypertension; E78.5 Hyperlipidemia, unspecified; Z87.442 Personal history of urinary calculi
CPT/HCPCS: 52352; 52332; 74420; 76000; 82365; 82962; J0690; J2405; J2704; J3010

== ENCOUNTER → 2021-07-22 15:49 | Outpatient (CLI) | payer OTHER, SELFPAY ==
[2021-06-17 10:30] VITALS: BMI 36.7
--- NOTE | 2021-07-22 15:49 | DI.CT.S_ITS ---
PROCEDURE: CT ABDOMEN PELVIS WO CON INDICATIONS: S/P left distal ureteral stone and left ureteral stent TECHNIQUE: Axial sections were acquired from the lung bases to the pubic symphysis. Coronal and sagittal reformats were performed. For radiation dose reduction, the following was used: automated exposure control, adjustment of mA and/or kV according to patient size. COMPARISON: [facility], [place], [place] PYELOGRAM RETROGRADE, 07/17/2021, 11:41. [facility], CT, KIDNEY/ URETER/BLADDER, 12/11/2015, 10:13. FINDINGS: Image quality: Excellent. Evaluation of the solid parenchymal organs is limited without IV contrast. Lung bases: Right lower lobe focus of ground-glass opacity, (3/3), not seen in 2016. No pleural effusion. Several small pulmonary cysts. Heart: No significant findings. URINARY: Right Kidney: Calcifications near the renal pyramids. Several low-density small renal cysts. Right Ureter: No hydroureter. Small phleboliths in the pelvis is unchanged. Left Kidney: Calcifications near the renal pyramids. Inferior pole low-density small renal cyst. No hydronephrosis. Double-J ureteral stent in the renal pelvis and urinary bladder. Left Ureter: No hydroureter. Bladder: Normal wall thickness. No stones. ABDOMEN: Liver: Unremarkable. Gallbladder: Not distended. Biliary ducts: Unremarkable. Pancreas: Unremarkable. Spleen: No splenomegaly. Small splenule. Adrenal Glands: No nodule. Stomach and Bowel: Stomach, small bowel loops, and colon are unremarkable. Peritoneum: No abnormal intraperitoneal fluid. No free air. Ventral Wall: Small umbilical hernia. Abdominal Nodes: No enlarged retroperitoneal or mesenteric lymph nodes. Small retroperitoneal lymph nodes. Vessels: Aorta and inferior vena cava are normal in size. PELVIS: Pelvic Organs: Uterus is absent. Pelvic Nodes: Unremarkable. Miscellaneous: No inguinal hernias are seen. Bones: L4-L5 pedicle screw fixation with intervertebral body spacer. Grade 1 anterolisthesis of L5 on S1. No compression fracture. IMPRESSION: 1. Left ureteral stent is in the expected position. No hydronephrosis. 2. Bilateral calcifications near the renal pyramids. This could be seen in medullary sponge kidney. 3. Small renal cysts bilaterally are grossly similar to the prior exam from 2016. Dictated by: Jesus Mims M.D. on 07/22/2021 at 16:44 Approved by: Jesus Mims M.D. on 07/22/2021 at 16:54
== END ==
PROVIDERS: PCP Family Medicine; Referring Provider Urology; Visit Provider Urology
DX: N20.1 Calculus of ureter (principal); N20.0 Calculus of kidney; Q61.02 Congenital multiple renal cysts
CPT/HCPCS: 74176

== ENCOUNTER → 2021-07-25 08:11 | Outpatient (CLI) | payer OTHER, SELFPAY ==
[2021-06-17 10:30] VITALS: BMI 36.7
== END ==
PROVIDERS: PCP Family Medicine; Visit Provider Urology
DX: R30.0 Dysuria (principal)
CPT/HCPCS: 87086

== ENCOUNTER → 2021-07-25 08:24 | Outpatient (CLI) | payer OTHER, SELFPAY ==
[2021-06-17 10:30] VITALS: BMI 36.7
--- NOTE | 2021-07-25 08:26 | DI.RAD.S_ITS ---
PROCEDURE: XR KUB INDICATIONS: Renal calculi retained stent TECHNIQUE: One view of the abdomen acquired. COMPARISON: , , KUB XRAY (1 VIEW ABDOMEN), 09/08/2016, 11:05. FINDINGS: Surgical changes and devices: None. Bowel: Bowel gas pattern is normal. Soft tissues: Bilateral nephrolithiasis measuring up to 8 mm on the left and 5 mm on the right. Status post placement of left ureteral stent in expected position. Bones: No suspicious bony lesions. Incidentally noted lumbar spinal fixation hardware and interbody cage graft. IMPRESSION: Bilateral nephrolithiasis. Expected appearance of left ureteral stent. Dictated by: Myles Deleon M.D. on 07/25/2021 at 8:51 Approved by: Myles Deleon M.D. on 07/25/2021 at 8:53
== END ==
PROVIDERS: PCP Family Medicine; Referring Provider Urology; Visit Provider Urology
DX: N20.1 Calculus of ureter (principal); N20.0 Calculus of kidney; R30.0 Dysuria; N18.32 Chronic kidney disease, stage 3b; Q61.5 Medullary cystic kidney; Z96.0 Presence of urogenital implants; Z88.8 Allergy status to other drugs, medicaments and biological substances; Z87.442 Personal history of urinary calculi
CPT/HCPCS: 74018; 81002; 87086

== ENCOUNTER 2021-08-01 20:47 | Emergency (ER) | payer OTHER, SELFPAY ==
[2021-06-17 10:30] VITALS: BMI 36.7
[2021-08-01] VITALS (7 sets, daily range): BP systolic 141–164; BP diastolic 83–90; PULSE 89–123; RESP 16–24; TEMP 37.3; O2SAT 96–99; BMI 38.2
--- NOTE | 2021-08-01 20:52 | DI.RAD.S_ITS ---
PROCEDURE: XR CHEST 1V INDICATIONS: suspected sepsis TECHNIQUE: One view of the chest was acquired. COMPARISON: None. FINDINGS: Surgical changes and devices: None. Lungs and pleura: Lungs are clear. No pleural effusions or pneumothorax. Mediastinum: Mediastinal contours appear normal. Heart size is normal. Bones and chest wall: No suspicious bony lesions. Overlying soft tissues appear unremarkable. IMPRESSION: No acute cardiopulmonary disease. Dictated by: Nimco Hill M.D. on 08/01/2021 at 21:59 Approved by: Nimco Hill M.D. on 08/01/2021 at 21:59
[2021-08-01] MEDS: SODIUM CHLORIDE 0.9% 1,000 ML 1000 ML IV (21:19)
[2021-08-01 21:24] LABS: Add Manual Diff / Slide Review NO; Basophils Absolute Auto 0 /uL (0-100); Basophils Percent Auto 0.7 % (0-2); Eosinophils Absolute Auto 0 /uL (0-450); Eosinophils Percent Auto 0.4 % (2-4); Hematocrit 39.6 % (36-46); Hemoglobin 13.1 g/dL (12.0-16.0); Lymphocytes Absolute Auto 500 /uL (1100-4500); Lymphocytes Percent Auto 7.7 % (25-40); Mean Corpuscular HGB Conc 33.1 % (30-36); Mean Corpuscular Hemoglobin 27.6 PG (26-34); Mean Corpuscular Volume 83.4 fL (80-100); Monocytes Absolute Auto 400 /uL (0-900); Monocytes Percent Auto 5.7 % (3-14); Neutrophils Absolute Auto 5500 /uL (1500-7000); Neutrophils Percent Auto 85.5 % (50-75); Platelet Count 174 X10^3/uL (150-400); Red Blood Cell Count 4.75 X10^6/uL (4.0-5.2); Red Cell Distribution Width 14.5 % (11.6-14.8); White Blood Cell Count 6.5 X10^3/uL (4.5-11.0)
[2021-08-01 21:38] LABS: HEMOLYSIS < 15 (0-50)
[2021-08-01 21:42] LABS: Lactate (Lactic Acid) 0.6 mmol/L (0.7-2.1)
[2021-08-01 21:43] LABS: Alanine Aminotransferase 14 IU/L (<35); Albumin 4.2 g/dL (3.5-5.0); Albumin Globulin Ratio 1.2 (1.0-2.8); Alkaline Phosphatase 106 U/L (38-126); Aspartate Aminotransferase 24 IU/L (14-36); BUN Creatinine Ratio 14.8 (6-22); Bilirubin Total 0.8 mg/dL (0.2-1.3); Blood Urea Nitrogen 20 mg/dL (7-17); Calcium 9.2 mg/dL (8.4-10.2); Carbon Dioxide 24 mmol/L (22-32); Chloride 103 mmol/L (98-107); Estimated Glomerular Filt Rate 41.3 mL/min (>60); Globulin 3.6 g/dL (1.7-4.1); Glucose 139 mg/dL (70-100); Lipase 103 U/L (23-300); Potassium 3.8 mmol/L (3.4-5.1); Sodium 135 mmol/L (137-145); Total Protein 7.8 g/dL (6.3-8.2)
[2021-08-01 22:14] LABS: Bilirubin Urine UA NEGATIVE (NEGATIVE); Color Urine UA YELLOW; Glucose Urine UA NEGATIVE (Negative); Ketones Urine UA NEGATIVE (NEGATIVE); Leukocyte Esterase Urine UA 3+ (NEGATIVE); Nitrite Urine UA POSITIVE (Negative); Occult Blood Urine UA 1+ (Negative); Protein Urine UA NEGATIVE (Negative); Specific Gravity Urine UA <=1.005 (1.000-1.035); Urobilinogen Urine UA 0.2 E.U./dL (0.2)
[2021-08-01 22:15] LABS: Appearance Urine UA Slightly Cloudy; pH Urine UA 6.5 (4.5-8.0)
[2021-08-01 22:30] LABS: Bacteria Urine Moderate (10-30); Culture Indicated Urine Specimen Cultured; RBC Urine 5-10/HPF (0-5/HPF); Squamous Epithelial Cell Urine None Seen (0-5/HPF); WBC Urine >100/HPF (0-5/HPF)
--- NOTE | 2021-08-01 22:33 | ED.GENADULT ---
HPI - General Adult General Chief complaint: Fever Stated complaint: fever post op Time Seen by Provider: 08/01/21 22:33 Mode of arrival: Ambulatory History of Present Illness HPI narrative: 50-year-old woman with history of hypertension, medullary sponge kidney, and recurrent kidney stones with repetitive Klebsiella infection who presents with complaints of UTI type symptoms. She was seen by Urology on July 17 for cystoscopy with bilateral retrograde pyelogram left distal ureteral stone basketing and left ureteral stent placement. She began having dysuria 3 days ago and today had a fever that she measured up to 105 at home with shaking chills. She comes in for further evaluation. She does not report headaches, myalgias, palpitations, cough, chest pain, abdominal pain be on the left flank pain she has had a bit of diarrhea associated with Augmentin early in the course but nothing recently she does note dysuria but no hematuria. She has not had any lower extremity swelling no dyspnea or orthopnea. Related Data Home Medications Medication Instructions Recorded Confirmed acetaminophen 500 mg tablet 1,000 mg PO Q6H PRN 06/19/19 07/15/21 (Tylenol Extra Strength) Previous Rx's Medication Instructions Recorded valacyclovir 500 mg tablet 1,000 mg PO BID PRN #30 tab 01/29/21 metoprolol succinate 25 mg 12.5 mg PO BEDTIME #45 tab 05/13/21 tablet,extended release 24 hr (Toprol XL) pantoprazole 40 mg tablet,delayed See Rx Instructions .ROUTE 05/27/21 release .COMPLEX #90 tab fluconazole 150 mg tablet See Rx Instructions .ROUTE 06/16/21 .COMPLEX #2 tab phenazopyridine 200 mg tablet 200 mg PO TID PRN #30 tab 07/17/21 (Pyridium) amoxicillin 875 mg-potassium 1 tab PO BID #20 tab 08/02/21 clavulanate 125 mg tablet (Augmentin) oxycodone-acetaminophen 5 mg-325 1 tab PO Q6H PRN #12 tab 08/02/21 mg tablet Allergies Allergy/AdvReac Type Severity Reaction Status Date / Time iodine Allergy Intermediate HIVES - Verified 08/01/21 20:51 CONTRAST Sulfa (Sulfonamide Allergy Intermediate My finger Verified 08/01/21 20:51 Antibiotics) swelled up NSAIDS (Non-Steroidal AdvReac Severe CKD Stage 3 Verified 08/01/21 20:51 Anti-Inflamma morphine AdvReac Intermediate Nausea/vomi Verified 08/01/21 20:51 ting ciprofloxacin AdvReac Mild intestinal Verified 08/01/21 20:51 cramping esomeprazole AdvReac Mild CONSTIPATIO Verified 08/01/21 20:51 N nitrofurantoin AdvReac Mild rash and Verified 08/01/21 20:51 [From Macrobid] vomiting Review of Systems Review of Systems Narrative: Remainder of complete review of systems is otherwise unremarkable except for that included in the HPI. Patient History Medical History Allergy to iodine Anemia Asthma BCC (basal cell carcinoma) Bilateral elbow joint pain Chickenpox Chronic pain of left elbow CKD (chronic kidney disease) Essential hypertension (08/03/16) Gastroesophageal reflux disease (02/03/11) History of basal cell carcinoma (BCC) History of nephrolithiasis History of renal calculi HSV-1 (herpes simplex virus 1) infection HTN (hypertension) Hyperlipidemia Left ureteral calculus Leukopenia Medullary sponge kidney MANNY on CPAP Recurrent UTI (urinary tract infection) Retained ureteral stent Scarlet fever (~1978) Sicca complex (02/03/11) Sjogren's syndrome Spinal stenosis Thrombocytopenia Urinary tract infection Vaginal dryness Surgical History History of fusion of lumbar spine (06/30/19) Hx of lithotripsy Hx of tubal ligation Status post delivery Status post hysterectomy Family History Father Diabetes mellitus Hepatitis C Circulation problem Alcoholism /alcohol abuse Mother History of colon cancer Hypertension Parkinsons disease Sister Celiac disease Diverticulitis Migraines Social History household members: spouse and children Smoking Status: Never smoker second hand exposure: No alcohol intake: current substance use type: does not use Smoking Status: Never smoker alcohol intake frequency: a few times a week Substance Use Type: does not use Exam Narrative Exam Narrative: General: Healthy appearing, in mild amount of pain but Able to give a complete and coherent history. Well-nourished well-developed HEENT: Moist mucous membranes, normal sclera with reactive pupils, Respiratory: Lungs are clear to auscultation, no wheezing no rales no rhonchi. Full and symmetrical air movement Cardiac: Regular rate and rhythm no murmurs no bruits Abdomen: Soft, nontender, good bowel tones, no rebound or guarding, left flank pain. Skin: Warm and dry, no rashes Neurologic: Grossly neurologically intact with no obvious asymmetries or abnormalities Extremities: No trauma, well perfused Psych: Cooperative, appropriate insight and affect Initial Vital Signs Initial Vital Signs: Vital Signs Temperature 99.2 F 08/01/21 20:48 Pulse Rate 123 H 08/01/21 20:48 Respiratory Rate 16 08/01/21 20:48 Blood Pressure 143/90 H 08/01/21 20:48 Pulse Oximetry 97 08/01/21 20:48 Course Orders Ordered: Discontinued Medications Sodium Chloride (Normal Saline 0.9%) 1,000 mls @ 1,000 mls/hr IV BOLUS ONE Stop: 08/01/21 21:50 Last Infusion: 08/01/21 22:21 Dose: 0 mls/hr Documented by: Admin: 08/01/21 21:19 Dose: 1,000 mls/hr Documented by: MELCHOR Ceftriaxone Sodium 2,000 mg/ (Sodium Chloride) 100 mls @ 200 mls/hr IV NOW ONE Stop: 08/02/21 00:40 Last Infusion: 08/02/21 01:32 Dose: 0 mls/hr Documented by: Admin: 08/02/21 00:47 Dose: 200 mls/hr Documented by: SHAN Ketorolac Tromethamine (Ketorolac 30 Mg/Ml Vial) 15 mg IV NOW ONE Stop: 08/02/21 00:40 Last Admin: 08/02/21 00:46 Dose: 15 mg Documented by: SHAN Oxycodone/Acetaminophen (Oxycodone/Acetaminophen 5/325 Tablet) 1 tab PO NOW ONE Stop: 08/02/21 00:40 Last Admin: 08/02/21 00:46 Dose: 1 tab Documented by: SHAN Oxycodone/Acetaminophen (Oxycodone/Apap 5/325 Prepack) 1 bottle MISC SEEINSTR ONE Stop: 08/02/21 00:40 Last Admin: 08/02/21 00:46 Dose: 1 bottle Documented by: RLAZANI Vital Signs Vital signs: Vital Signs - 8 hr 08/02/21 01:30 Temperature 98.5 F Pulse Rate 113 H Respiratory Rate 17 Blood Pressure 135/86 Pulse Oximetry 95 Medical Decision Making Lab Data Result diagrams: 08/01/21 21:15 08/01/21 21:15 Labs: Lab Results 08/01/21 08/01/21 08/01/21 Range/Units 21:15 21:15 21:15 WBC 6.5 (4.5-11.0) X10^3/uL RBC 4.75 (4.0-5.2) X10^6/uL Hgb 13.1 (12.0-16.0) g/dL Hct 39.6 (36-46) % MCV 83.4 (80-100) fL MCH 27.6 (26-34) PG MCHC 33.1 (30-36) % RDW 14.5 (11.6-14.8) % Plt Count 174 (150-400) X10^3/uL Neut % (Auto) 85.5 H (50-75) % Lymph % (Auto) 7.7 L (25-40) % [place] % (Auto) 5.7 (3-14) % Eos % (Auto) 0.4 L (2-4) % Baso % (Auto) 0.7 (0-2) % Neut # (Auto) 5500 (6155-2360) /uL Lymph # (Auto) 500 L (3591-9976) /uL [place] # (Auto) 400 (0-900) /uL Eos # (Auto) 0 (0-450) /uL Baso # (Auto) 0 (0-100) /uL Sodium 135 L (137-145) mmol/L Potassium 3.8 (3.4-5.1) mmol/L Chloride 103 (98-107) mmol/L Carbon Dioxide 24 (22-32) mmol/L BUN 20 H (7-17) mg/dL Creatinine 1.35 H (0.52-1.04) mg/dL Estimated GFR 41.3 L (>60) mL/min BUN/Creatinine Ratio 14.8 (6-22) Glucose 139 H (70-100) mg/dL Lactate 0.6 L (0.7-2.1) mmol/L Calcium 9.2 (8.4-10.2) mg/dL Total Bilirubin 0.8 (0.2-1.3) mg/dL AST 24 (14-36) IU/L ALT 14 (<35) IU/L Alkaline Phosphatase 106 (38-126) U/L Total Protein 7.8 (6.3-8.2) g/dL Albumin 4.2 (3.5-5.0) g/dL Globulin 3.6 (1.7-4.1) g/dL Albumin/Globulin Ratio 1.2 (1.0-2.8) Lipase 103 (23-300) U/L Procalcitonin 0.12 (<0.5) ng/mL Urine Color Urine Appearance Urine pH (4.5-8.0) Ur Specific [place] (1.000-1.035) Urine Protein (Negative) Urine Glucose (UA) (Negative) g/dL Urine Ketones (NEGATIVE) Urine Occult Blood (Negative) Urine Nitrate (Negative) Urine Bilirubin (NEGATIVE) Urine Urobilinogen (0.2) E.U./dL Ur Leukocyte Esterase (NEGATIVE) Urine RBC (0-5/HPF) Urine WBC (0-5/HPF) Ur Squamous Epith Cells (0-5/HPF) Urine Bacteria (None) Ur Culture Indicated? SARS-CoV-2 (PCR) (Negative) 08/01/21 08/01/21 Range/Units 21:15 22:00 WBC (4.5-11.0) X10^3/uL RBC (4.0-5.2) X10^6/uL Hgb (12.0-16.0) g/dL Hct (36-46) % MCV (80-100) fL MCH (26-34) PG MCHC (30-36) % RDW (11.6-14.8) % Plt Count (150-400) X10^3/uL Neut % (Auto) (50-75) % Lymph % (Auto) (25-40) % [place] % (Auto) (3-14) % Eos % (Auto) (2-4) % Baso % (Auto) (0-2) % Neut # (Auto) (3030-1324) /uL Lymph # (Auto) (9699-3009) /uL [place] # (Auto) (0-900) /uL Eos # (Auto) (0-450) /uL Baso # (Auto) (0-100) /uL Sodium (137-145) mmol/L Potassium (3.4-5.1) mmol/L Chloride (98-107) mmol/L Carbon Dioxide (22-32) mmol/L BUN (7-17) mg/dL Creatinine (0.52-1.04) mg/dL Estimated GFR (>60) mL/min BUN/Creatinine Ratio (6-22) Glucose (70-100) mg/dL Lactate (0.7-2.1) mmol/L Calcium (8.4-10.2) mg/dL Total Bilirubin (0.2-1.3) mg/dL AST (14-36) IU/L ALT (<35) IU/L Alkaline Phosphatase (38-126) U/L Total Protein (6.3-8.2) g/dL Albumin (3.5-5.0) g/dL Globulin (1.7-4.1) g/dL Albumin/Globulin Ratio (1.0-2.8) Lipase (23-300) U/L Procalcitonin (<0.5) ng/mL Urine Color Yellow Urine Appearance Slightly cloudy Urine pH 6.5 (4.5-8.0) Ur Specific [place] <=1.005 (1.000-1.035) Urine Protein Negative (Negative) Urine Glucose (UA) Negative (Negative) g/dL Urine Ketones Negative (NEGATIVE) Urine Occult Blood 1+ H (Negative) Urine Nitrate Positive H (Negative) Urine Bilirubin Negative (NEGATIVE) Urine Urobilinogen 0.2 (0.2) E.U./dL Ur Leukocyte Esterase 3+ H (NEGATIVE) Urine RBC 5-10/hpf H (0-5/HPF) Urine WBC >100/hpf H (0-5/HPF) Ur Squamous Epith Cells None seen (0-5/HPF) Urine Bacteria Moderate (10-30) H (None) Ur Culture Indicated? Specimen cultured SARS-CoV-2 (PCR) Negative (Negative) MDM Narrative Medical decision making narrative: 50-year-old woman with fevers and chills. Urinalysis suggests recurrent infection. Blood work does not suggest sepsis. Will presume that she again has Klebsiella pneumoniae as she did on the 2nd. Was sensitive to ceftriaxone and Augmentin at that time will uses antibiotics again. She is scheduled to have her stent out on the . Will anticipate at least 10 days of Augmentin unless directed differently by her urologist. She will follow-up with him by phone on Wednesday so that he is aware that she was in the emergency department and restarted on antibiotics. Will send her home with a brief prescription of Percocet to help with pain as ibuprofen is contraindicated given her chronic kidney disease and history of medullary sponge kidney as well. At this point she is alert, appropriate, afebrile, pain is controlled, no evidence of sepsis and she is safe for home discharge with presumed UTI with concern for infected left ureteral stent Discharge Plan Departure Patient Disposition: Home Clinical Impression: Urinary tract infection, S/P ureteral stent placement Instructions: DI for Urinary Tract Infection (UTI) Activity Restrictions/Additional Instructions: Thank you for coming in today Fortunately, there are no signs of sepsis and you do not need to stay in the emergency department. Unfortunately, you clearly have a recurrent urinary tract infection. I a.m. treating you with a dose of ceftriaxone 3 year IV in the emergency department and will have you continue an additional 10 days of Augmentin, all of this is based on the urine culture from earlier this month. You do need to call Dr. Boyd on Wednesday to let him know urine the emergency department. I presume he will continue to anticipate stent removal on Wednesday. If you have worsening pain, fevers or new symptoms you need to return to the emergency department Prescriptions: New amoxicillin-pot clavulanate [Augmentin] 875-125 mg tablet 1 tab PO BID Qty: 20 0RF oxycodone-acetaminophen 5-325 mg tablet 1 tab PO Q6H PRN (Reason: pain) Qty: 12 0RF No Action metoprolol succinate [Toprol XL] 25 mg tablet extended release 24 hr 12.5 mg PO BEDTIME Qty: 45 1RF pantoprazole 40 mg tablet,delayed release (DR/EC) See Rx Instructions .ROUTE .COMPLEX Qty: 90 1RF Dose Instruction: Take 1 tablet (40 mg) by mouth daily Rx Instructions: Take 1 tablet (40 mg) by mouth daily fluconazole 150 mg tablet See Rx Instructions .ROUTE .COMPLEX Qty: 2 0RF Dose Instruction: TAKE 1 TABLET BY MOUTH NOW AND THEN TAKE THE SECOND TABLET IN 3 DAYS Rx Instructions: TAKE 1 TABLET BY MOUTH NOW AND THEN TAKE THE SECOND TABLET IN 3 DAYS valacyclovir 500 mg tablet 1,000 mg PO BID PRN (Reason: cold sores) Qty: 30 0RF Rx Instructions: Take 2 tabs 12 hours apart for one day acetaminophen [Tylenol Extra Strength] 500 mg Tablet 1,000 mg PO Q6H PRN (Reason: Pain) 0RF phenazopyridine [Pyridium] 200 mg tablet 200 mg PO TID PRN (Reason: Bladder irritation) Qty: 30 0RF Referrals: Stewart Darnell MD [Primary Care Provider] -
[2021-08-01 22:47] LABS: Procalcitonin 0.12 ng/mL (<0.5)
[2021-08-01 22:57] LABS: COVID19 - ADMIT (NP swab/PCR) Negative (Negative)
[2021-08-02] MEDS: KETOROLAC 30 MG/ML VIAL 15 MG IV (00:46)
[2021-08-02] MEDS: OXYCODONE/ACETAMINOPHEN 5/325 TABLET 1 TAB PO (00:46)
[2021-08-02] MEDS: OXYCODONE/APAP 5/325 PREPACK 1 BOTTLE MISC (00:46)
[2021-08-02] MEDS: cefTRIAXone 2,000 MG in SODIUM CHLORIDE 0.9% 100 ML 200 ML IV (00:47)
[2021-08-02 01:30] VITALS: BP 135/86; PULSE 113; RESP 17; TEMP 36.9; O2SAT 95
== END 2021-08-02 01:36 | disposition home or self-care (01) ==
PROVIDERS: Emergency Provider Emergency Medicine; PCP Family Medicine
DX: N39.0 Urinary tract infection, site not specified (principal); Z96.0 Presence of urogenital implants; Z20.822 Contact with and (suspected) exposure to COVID-19
CPT/HCPCS: 36415; 71045; 80053; 81001; 83605; 83690; 84145; 85025; 87040; 87077; 87086; 87186; 87635; 96361; 96365; 96375; 99284; C9803; J0696; J1885

== ENCOUNTER → 2021-08-12 13:59 | Outpatient (ROUT) | payer OTHER, SELFPAY ==
[2021-06-17 10:30] VITALS: BMI 36.7
[2021-08-12 14:16] LABS: Appearance Urine UA CLEAR; Bilirubin Urine UA NEGATIVE (NEGATIVE); Color Urine UA YELLOW; Glucose Urine UA NEGATIVE (Negative); Ketones Urine UA NEGATIVE (NEGATIVE); Leukocyte Esterase Urine UA NEGATIVE (NEGATIVE); Nitrite Urine UA NEGATIVE (Negative); Occult Blood Urine UA NEGATIVE (Negative); Protein Urine UA NEGATIVE (Negative); Urobilinogen Urine UA 0.2 E.U./dL (0.2)
[2021-08-12 14:19] LABS: Culture Indicated Urine Cult Not Indicated; RBC Urine None Seen (0-5/HPF); Renal Epithelial Cells Urine 1-5/HPF (0-1/HPF); Squamous Epithelial Cell Urine 0-1 /HPF (0-5/HPF); Transitional Epi Cells Urine 1-5/HPF (0-5/HPF); WBC Urine None Seen (0-5/HPF)
[2021-08-12 17:45] LABS: Bacteria Urine None Seen
== END ==
PROVIDERS: PCP Family Medicine; Visit Provider Urology
DX: R30.0 Dysuria (principal)
CPT/HCPCS: 81001

== ENCOUNTER → 2021-08-20 16:56 | Outpatient (CLI) | payer OTHER, SELFPAY ==
[2021-06-17 10:30] VITALS: BMI 36.7
[2021-08-20 18:16] LABS: Appearance Urine UA CLOUDY; Bilirubin Urine UA NEGATIVE (NEGATIVE); Color Urine UA YELLOW; Glucose Urine UA NEGATIVE (Negative); Ketones Urine UA NEGATIVE (NEGATIVE); Leukocyte Esterase Urine UA 2+ (NEGATIVE); Nitrite Urine UA POSITIVE (Negative); Occult Blood Urine UA TRACE-INTACT (Negative); Protein Urine UA NEGATIVE (Negative); Urobilinogen Urine UA 0.2 E.U./dL (0.2)
[2021-08-20 18:42] LABS: Amorphous Sediment Urine 1+; Bacteria Urine Many (>30); Culture Indicated Urine Specimen Cultured; RBC Urine 0-1/HPF (0-5/HPF); Squamous Epithelial Cell Urine 0-1 /HPF (0-5/HPF); WBC Urine 30-100/HPF (0-5/HPF); pH Urine UA 6.5 (4.5-8.0)
[2021-08-20 19:07] LABS: Add Manual Diff / Slide Review NO; Basophils Absolute Auto 0 /uL (0-100); Basophils Percent Auto 0.9 % (0-2); Eosinophils Absolute Auto 100 /uL (0-450); Eosinophils Percent Auto 2.8 % (2-4); Hematocrit 39.2 % (36-46); Hemoglobin 12.8 g/dL (12.0-16.0); Lymphocytes Absolute Auto 700 /uL (1100-4500); Lymphocytes Percent Auto 27.7 % (25-40); Mean Corpuscular HGB Conc 32.6 % (30-36); Mean Corpuscular Hemoglobin 27.5 PG (26-34); Mean Corpuscular Volume 84.4 fL (80-100); Monocytes Absolute Auto 300 /uL (0-900); Monocytes Percent Auto 10.5 % (3-14); Neutrophils Absolute Auto 1500 /uL (1500-7000); Neutrophils Percent Auto 58.1 % (50-75); Platelet Count 198 X10^3/uL (150-400); Red Blood Cell Count 4.64 X10^6/uL (4.0-5.2); Red Cell Distribution Width 14.6 % (11.6-14.8); White Blood Cell Count 2.6 X10^3/uL (4.5-11.0)
[2021-08-20 19:21] LABS: Albumin 4.2 g/dL (3.5-5.0); BUN Creatinine Ratio 15.2 (6-22); Blood Urea Nitrogen 24 mg/dL (7-17); Calcium 9.4 mg/dL (8.4-10.2); Carbon Dioxide 27 mmol/L (22-32); Chloride 106 mmol/L (98-107); Estimated Glomerular Filt Rate 34.5 mL/min (>60); Glucose 92 mg/dL (70-100); HEMOLYSIS < 15 (0-50); Phosphorous 3.6 mg/dL (2.5-4.5); Potassium 4.7 mmol/L (3.4-5.1); Sodium 143 mmol/L (137-145)
== END ==
PROVIDERS: Urology; PCP Family Medicine; Referring Provider Internal Medicine Nephrology; Visit Provider Internal Medicine Nephrology
DX: N18.32 Chronic kidney disease, stage 3b (principal); N39.0 Urinary tract infection, site not specified
CPT/HCPCS: 36415; 80069; 81001; 85025; 87077; 87086; 87186

== ENCOUNTER → 2021-08-26 08:24 | Outpatient (CLI) | payer OTHER, SELFPAY ==
[2021-06-17 10:30] VITALS: BMI 36.7
== END ==
PROVIDERS: PCP Family Medicine; Visit Provider Urology
DX: N18.32 Chronic kidney disease, stage 3b (principal); N39.0 Urinary tract infection, site not specified; A49.8 Other bacterial infections of unspecified site; Q61.5 Medullary cystic kidney; N29 Other disorders of kidney and ureter in diseases classified elsewhere; R30.0 Dysuria; Z88.8 Allergy status to other drugs, medicaments and biological substances; E83.59 Other disorders of calcium metabolism; Z87.442 Personal history of urinary calculi
CPT/HCPCS: 81002; 87086

== ENCOUNTER → 2021-09-17 07:57 | Outpatient (CLI) | payer OTHER, SELFPAY ==
[2021-06-17 10:30] VITALS: BMI 36.7
== END ==
PROVIDERS: PCP Family Medicine; Visit Provider Urology
DX: R30.0 Dysuria (principal); N18.32 Chronic kidney disease, stage 3b; N39.0 Urinary tract infection, site not specified; B96.89 Other specified bacterial agents as the cause of diseases classified elsewhere; E83.59 Other disorders of calcium metabolism; N29 Other disorders of kidney and ureter in diseases classified elsewhere; Z88.8 Allergy status to other drugs, medicaments and biological substances
CPT/HCPCS: 36415; 51798; 80048; 81002; 87077; 87086; 87186

== ENCOUNTER → 2021-09-17 08:43 | Outpatient (CLI) | payer OTHER, SELFPAY ==
[2021-06-17 10:30] VITALS: BMI 36.7
[2021-09-17 11:08] LABS: Blood Urea Nitrogen 25 mg/dL (7-17); Carbon Dioxide 26 mmol/L (22-32); Chloride 106 mmol/L (98-107); Glucose 104 mg/dL (70-100); HEMOLYSIS < 15 (0-50); Potassium 4.2 mmol/L (3.4-5.1); Sodium 138 mmol/L (137-145)
== END ==
PROVIDERS: PCP Family Medicine; Referring Provider Internal Medicine Nephrology; Visit Provider Internal Medicine Nephrology
DX: N18.32 Chronic kidney disease, stage 3b (principal)
CPT/HCPCS: 36415; 80048

== ENCOUNTER → 2022-04-13 07:35 | Outpatient (CLI) | payer OTHER, SELFPAY ==
[2021-06-17 10:30] VITALS: BMI 36.7
--- NOTE | 2022-04-13 | DI.MG.S_ITS ---
BILATERAL DIGITAL SCREENING MAMMOGRAM 3D/2D WITH CAD: 04/13/2022 CLINICAL: Routine screening. Family history of breast cancer. Comparison is made to exams dated: 04/11/2021 mammogram, 04/09/2020 mammogram, and 01/06/2019 mammogram - . The tissue of both breasts is heterogeneously dense. This may lower the sensitivity of mammography. Current study was also evaluated with a Computer Aided Detection (CAD) system. No significant masses, calcifications, or other findings are seen in either breast. There has been no significant interval change. IMPRESSION: NEGATIVE There is no mammographic evidence of malignancy. A 1 year screening mammogram is recommended. Based on the Tyrer Cuzick model (a risk assessment model) the patient's lifetime risk is 9.5% and her 10 year risk is 2.4%. According to the ACR, ACS, and NCCN guidelines, an annual breast MRI exam along with mammogram is recommended if the patient's lifetime risk is 20% or greater. This exam was interpreted at Station ID: [id number]. NOTE: For mammograms, a report in lay terms will be sent to the patient. Approximately 15% of breast malignancies will not be visualized mammographically. In the management of a palpable breast mass, a negative mammogram must not discourage biopsy of a clinically suspicious lesion. Electronically Signed By: Terry Klein M.D., jr/govind:04/13/2022 12:18:17 letter sent: Normal Exam ACR BI-RADS Category 1: Negative [id number]
== END ==
PROVIDERS: PCP Family Medicine; Referring Provider Family Medicine; Visit Provider Family Medicine
DX: Z12.31 Encounter for screening mammogram for malignant neoplasm of breast (principal); Z80.3 Family history of malignant neoplasm of breast
CPT/HCPCS: 77063; 77067

== ENCOUNTER → 2022-05-09 12:21 | Outpatient (CLI) | payer OTHER, SELFPAY ==
[2021-06-17 10:30] VITALS: BMI 36.7
--- NOTE | 2022-05-09 12:22 | DI.RAD.S_ITS ---
PROCEDURE: XR KUB INDICATIONS: Nephrocalcinosis/kidney stones TECHNIQUE: One view of the abdomen acquired. COMPARISON: [facility], CT, CT KUB, 10/13/2021, 16:10. [facility], CR, XR KUB, 07/25/2021, 8:26. FINDINGS: Surgical changes and devices: Lumbosacral fixation hardware is seen. Bowel: Bowel gas pattern is normal. Soft tissues: Numerous areas of poorly defined renal calcification can be seen, which are consistent with the given clinical history of nephrocalcinosis. This is much better demonstrated on the prior CT. Bones: No suspicious bony lesions. IMPRESSION: Renal calcification is seen, which is attributed to the known nephrocalcinosis. Superimpose renal stones or differential to this turn on this plain film study. Incidental note is made of: Lumbosacral fixation hardware Dictated by: Cristhian Herrera M.D. on 05/09/2022 at 11:52 Approved by: Cristhian Herrera M.D. on 05/09/2022 at 11:54
== END ==
PROVIDERS: PCP Family Medicine; Referring Provider Urology; Visit Provider Urology
DX: E83.59 Other disorders of calcium metabolism (principal); N29 Other disorders of kidney and ureter in diseases classified elsewhere
CPT/HCPCS: 74018

== ENCOUNTER → 2022-07-07 15:48 | Outpatient (CLI) | payer OTHER, SELFPAY ==
[2021-06-17 10:30] VITALS: BMI 36.7
[2022-07-07 16:27] LABS: Add Manual Diff / Slide Review NO; Basophils Absolute Auto 0 /uL (0-100); Basophils Percent Auto 0.9 % (0-2); Eosinophils Absolute Auto 100 /uL (0-450); Eosinophils Percent Auto 3.5 % (2-4); Hemoglobin 12.8 g/dL (12.0-16.0); Lymphocytes Absolute Auto 600 /uL (1100-4500); Lymphocytes Percent Auto 25.3 % (25-40); Mean Corpuscular HGB Conc 32.8 % (30-36); Mean Corpuscular Hemoglobin 27.2 PG (26-34); Monocytes Absolute Auto 200 /uL (0-900); Monocytes Percent Auto 8.2 % (3-14); Neutrophils Absolute Auto 1400 /uL (1500-7000); Neutrophils Percent Auto 62.1 % (50-75); Platelet Count 179 X10^3/uL (150-400); Red Cell Distribution Width 14.7 % (11.6-14.8); White Blood Cell Count 2.2 X10^3/uL (4.5-11.0)
[2022-07-07 16:38] LABS: BUN Creatinine Ratio 16.1 (6-22); Blood Urea Nitrogen 23 mg/dL (7-17); Calcium 8.8 mg/dL (8.4-10.2); Carbon Dioxide 27 mmol/L (22-32); Chloride 104 mmol/L (98-107); Estimated Glomerular Filt Rate 44 mL/min (>60); Glucose 112 mg/dL (70-100); HEMOLYSIS < 15 (0-50); Phosphorous 3.9 mg/dL (2.5-4.5); Potassium 4.2 mmol/L (3.4-5.1); Sodium 140 mmol/L (137-145)
[2022-07-07 16:54] LABS: Vitamin D 25 Hydroxy (D3) 37.1 ng/mL (30.0-100.0)
[2022-07-07 16:59] LABS: Creatinine Urine Random 83.7 mg/dL
[2022-07-07 17:05] LABS: Microalbumin Urine Random < 0.6 mg/dL (0-1.6)
[2022-07-07 18:58] LABS: Appearance Urine UA Clear; Color Urine UA Yellow
[2022-07-07 18:59] LABS: Bilirubin Urine UA Negative (NEGATIVE); Glucose Urine UA NEGATIVE (Negative); Ketones Urine UA NEGATIVE (NEGATIVE); Leukocyte Esterase Urine UA NEGATIVE (NEGATIVE); Nitrite Urine UA NEGATIVE (Negative); Occult Blood Urine UA Negative (Negative); Protein Urine UA Negative (Negative); Urobilinogen Urine UA 0.2 E.U./dL (0.2)
[2022-07-07 19:10] LABS: Bacteria Urine None Seen; Culture Indicated Urine Cult Not Indicated; RBC Urine 0-1/HPF (0-5/HPF); Squamous Epithelial Cell Urine 0-1 /HPF (0-5/HPF); WBC Urine None Seen (0-5/HPF)
[2022-07-09 06:36] LABS: Parathyroid Hormone Int 45 pg/mL (15-65)
== END ==
PROVIDERS: PCP Family Medicine; Referring Provider Internal Medicine Nephrology; Visit Provider Internal Medicine Nephrology
DX: N18.31 Chronic kidney disease, stage 3a (principal)
CPT/HCPCS: 36415; 80069; 81001; 82043; 82306; 82570; 83970; 85025

== ENCOUNTER → 2022-08-29 08:29 | Outpatient (CLI) | payer OTHER, SELFPAY ==
[2021-06-17 10:30] VITALS: BMI 36.7
--- NOTE | 2022-08-29 08:30 | DI.RAD.S_ITS ---
PROCEDURE: XR HAND RT MIN 3V INDICATIONS: bilateral knee and hand pain TECHNIQUE: 3 views of the hand(s) acquired. COMPARISON: None. FINDINGS: Bones: Minimal scattered arthrosis. No acute fracture. No dislocation. Soft tissues: No suspicious soft tissue calcifications. IMPRESSION: No acute radiographic abnormality. If there is high concern for further derangement, consider MRI evaluation. Dictated by: Paresh Cotter M.D. on 08/29/2022 at 10:15 Approved by: Paresh Cotter M.D. on 08/29/2022 at 10:17
--- NOTE | 2022-08-29 08:30 | DI.RAD.S_ITS ---
PROCEDURE: XR HAND LT MIN 3V INDICATIONS: bilateral knee and hand pain TECHNIQUE: 3 views of the hand(s) acquired. COMPARISON: None. FINDINGS: Bones: No acute fracture. Overall normal alignment. Minimal arthrosis without high-grade degenerative changes. Soft tissues: No suspicious soft tissue calcifications. IMPRESSION: No acute radiographic abnormality. Minimal arthrosis without high-grade degenerative changes. If there is high concern for further derangement, consider MRI evaluation. Dictated by: Paresh Cotter M.D. on 08/29/2022 at 9:00 Approved by: Paresh Cotter M.D. on 08/29/2022 at 9:02
--- NOTE | 2022-08-29 08:30 | DI.RAD.S_ITS ---
PROCEDURE: XR KNEE LT 3V INDICATIONS: bilateral knee and hand pain TECHNIQUE: 3 views of the knee were acquired. COMPARISON: [facility], , KNEE 3V RIGHT, 08/03/2016, 10:27. FINDINGS: Bones: No fractures or dislocations. No suspicious bony lesions. Minimal arthrosis Soft tissues: No joint effusion. No suspicious soft tissue calcifications. IMPRESSION: No acute radiographic abnormality. If there is high concern for further derangement, consider MRI evaluation. Dictated by: Paresh Cotter M.D. on 08/29/2022 at 10:14 Approved by: Paresh Cotter M.D. on 08/29/2022 at 10:15
--- NOTE | 2022-08-29 08:30 | DI.RAD.S_ITS ---
PROCEDURE: XR KNEE RT 3V INDICATIONS: bilateral knee and hand pain TECHNIQUE: 3 views of the knee were acquired. COMPARISON: [facility], , KNEE 3V RIGHT, 08/03/2016, 10:27. FINDINGS: Bones: No fractures or dislocations. No suspicious bony lesions. Minimal arthrosis Soft tissues: No joint effusion. No suspicious soft tissue calcifications. IMPRESSION: No acute radiographic abnormality. If there is high concern for further derangement, consider MRI evaluation. Dictated by: Paresh Cotter M.D. on 08/29/2022 at 10:13 Approved by: Paresh Cotter M.D. on 08/29/2022 at 10:14
--- NOTE | 2022-08-29 08:30 | DI.RAD.S_ITS ---
PROCEDURE: XR KUB INDICATIONS: Kidney stone/nephrocalcinosis TECHNIQUE: One view of the abdomen acquired. COMPARISON: [facility], CR, XR KUB, 05/09/2022, 12:26. [facility], CR, XR KUB, 07/25/2021, 8:26. FINDINGS: Surgical changes and devices: Lumbosacral fusion hardware with interbody spacer Bowel: Bowel gas pattern is normal. Soft tissues: Bilateral suspected renal calculi, greatest measuring up to 1 cm on the left interpolar region and 0.6 cm in the right interpolar region. This is probably similar compared to prior imaging in April. Bones: As above. No suspicious lesions. IMPRESSION: Suspected bilateral renal calculi as above. Dictated by: Paresh Cotter M.D. on 08/29/2022 at 10:11 Approved by: Paresh Cotter M.D. on 08/29/2022 at 10:13
[2022-08-29 10:24] LABS: Add Manual Diff / Slide Review NO; Basophils Absolute Auto 0 /uL (0-100); Basophils Percent Auto 0.6 % (0-2); Eosinophils Absolute Auto 100 /uL (0-450); Eosinophils Percent Auto 3.3 % (2-4); Hemoglobin 13.3 g/dL (12.0-16.0); Lymphocytes Absolute Auto 500 /uL (1100-4500); Lymphocytes Percent Auto 24.6 % (25-40); Mean Corpuscular HGB Conc 33.3 % (30-36); Mean Corpuscular Hemoglobin 27.9 PG (26-34); Mean Corpuscular Volume 83.7 fL (80-100); Monocytes Absolute Auto 200 /uL (0-900); Monocytes Percent Auto 9.7 % (3-14); Neutrophils Absolute Auto 1300 /uL (1500-7000); Neutrophils Percent Auto 61.8 % (50-75); Platelet Count 165 X10^3/uL (150-400); Red Blood Cell Count 4.78 X10^6/uL (4.0-5.2); Red Cell Distribution Width 14.2 % (11.6-14.8)
[2022-08-29 10:41] LABS: Alanine Aminotransferase 19 IU/L (<35); Albumin 3.8 g/dL (3.5-5.0); Albumin Globulin Ratio 1.2 (1.0-2.8); Alkaline Phosphatase 98 U/L (38-126); Aspartate Aminotransferase 21 IU/L (14-36); BUN Creatinine Ratio 17.3 (6-22); Bilirubin Total 0.6 mg/dL (0.2-1.3); Blood Urea Nitrogen 23 mg/dL (7-17); Calcium 8.4 mg/dL (8.4-10.2); Carbon Dioxide 25 mmol/L (22-32); Chloride 105 mmol/L (98-107); Cholesterol 190 mg/dL (140-199); Estimated Glomerular Filt Rate 48 mL/min (>60); Globulin 3.2 g/dL (1.7-4.1); Glucose 102 mg/dL (70-100); HDL Cholesterol 41 mg/dL (40-60); HEMOLYSIS < 15 (0-50); LDL Cholesterol Calculated 127 mg/dL (<100); Potassium 4.2 mmol/L (3.4-5.1); Sodium 138 mmol/L (137-145); Triglycerides 108 mg/dL (35-150)
[2022-08-29 10:45] LABS: Microalbumin Urine Random 0.9 mg/dL (0-1.6)
[2022-08-29 10:48] LABS: Creatinine Urine Random 113.3 mg/dL; Microalbumi Creatinin Ratio Ur 7.9 ug/mg CR (<30)
== END ==
PROVIDERS: PCP Family Medicine; Referring Provider Family Medicine; Visit Provider Family Medicine
DX: M25.561 Pain in right knee (principal); M25.562 Pain in left knee; M35.00 Sjogren syndrome, unspecified; M79.641 Pain in right hand; M79.642 Pain in left hand; N20.0 Calculus of kidney; N29 Other disorders of kidney and ureter in diseases classified elsewhere; D63.1 Anemia in chronic kidney disease; N18.31 Chronic kidney disease, stage 3a; N18.32 Chronic kidney disease, stage 3b; N89.8 Other specified noninflammatory disorders of vagina; Z78.0 Asymptomatic menopausal state; Z90.711 Acquired absence of uterus with remaining cervical stump
CPT/HCPCS: 36415; 73130; 73562; 74018; 80053; 80061; 82043; 82570; 84443; 85025

== ENCOUNTER → 2022-11-11 16:38 | Outpatient (CLI) | payer OTHER, SELFPAY ==
[2021-06-17 10:30] VITALS: BMI 36.7
--- NOTE | 2022-11-11 16:40 | DI.RAD.S_ITS ---
PROCEDURE: XR KUB INDICATIONS: Kidney stone TECHNIQUE: One view of the abdomen acquired. COMPARISON: [facility], CR, XR KUB, 08/29/2022, 8:31. FINDINGS: Surgical changes and devices: L4-5 lumbar fusion. Bowel: Bowel gas pattern is normal. Significant stool is overlying the renal shadows. Previous calcifications are suspected to be unchanged. However, the areas are poorly evaluated Soft tissues: No suspicious abdominal calcifications. Visualized solid organ contours appear normal in size. Bones: No suspicious bony lesions. IMPRESSION: Suspected stability a previous calcifications. However, the areas are poorly evaluated secondary to significant overlying stool. Dictated by: Kellie Newman M.D. on 11/12/2022 at 16:50 Approved by: Kellie Newman M.D. on 11/12/2022 at 16:51
== END ==
PROVIDERS: PCP Family Medicine; Referring Provider Urology; Visit Provider Urology
DX: Z87.442 Personal history of urinary calculi (principal); Z09 Encounter for follow-up examination after completed treatment for conditions other than malignant neoplasm
CPT/HCPCS: 74018

== ENCOUNTER 2023-04-09 13:28 | Day surgery (SDC) | payer OTHER, SELFPAY ==
[2021-06-17 10:30] VITALS: BMI 36.7
[2023-04-09] MEDS: LACTATED RINGERS 1,000 ML 150 ML IV (13:41)
[2023-04-09 13:55] VITALS: BP 140/95; PULSE 109; RESP 16; TEMP 36.3; O2SAT 97; BMI 38.2
--- NOTE | 2023-04-09 15:07 | PM.HP.1 ---
History of Present Illness History of Present Illness Date Patient Seen: 04/09/23 Time Patient Seen: 15:07 Chief complaint: Colonoscopy Narrative: 52-year-old female presents today for her 2nd colonoscopy. Last 1 was done at [facility] by Dr. Hilario about 3 years ago. She did have polyps. She also had a mother who was diagnosed with colon cancer in her 80s and had some type of treatment here at [place]. She otherwise does not have any concerning symptoms no bleeding from below however she does describe difficulty with ?going to the bathroom.? The way she describes it is that she feels that she can not get ?clean? and she is not sure if she has fully evacuated. She feels as though she needs to force the stool out rather than it coming easily. She is not sure if this is because she has Sojogrn's disease or because of her diet or because she is overweight or she takes cephalexin. She does not take a fiber supplement daily. [facility] Medical History (Updated 04/09/23 @ 15:15 by Lor Bella MD) Allergy to iodine Anemia Asthma BCC (basal cell carcinoma) Bilateral elbow joint pain Chickenpox Chronic pain of left elbow CKD (chronic kidney disease) Essential hypertension (08/03/16) Gastroesophageal reflux disease (02/03/11) History of basal cell carcinoma (BCC) History of nephrolithiasis History of renal calculi HSV-1 (herpes simplex virus 1) infection HTN (hypertension) Hyperlipidemia Klebsiella infection Leukopenia Medullary sponge kidney Nephrocalcinosis MANNY on CPAP Recurrent UTI (urinary tract infection) Scarlet fever (~1978) Sicca complex (02/03/11) Sjogren's syndrome Spinal stenosis Thrombocytopenia Urinary tract infection UTI due to Klebsiella species Vaginal dryness Surgical History (Updated 10/06/22 @ 11:47 by Harley Melchor MD) History of fusion of lumbar spine (06/30/19) Hx of lithotripsy Hx of tubal ligation Status post delivery Status post hysterectomy Family History Father Diabetes mellitus Hepatitis C Circulation problem Alcoholism /alcohol abuse Mother History of colon cancer Hypertension Parkinsons disease Sister Celiac disease Diverticulitis Migraines Social History household members: spouse and children Smoking Status: Never smoker second hand exposure: No alcohol intake: current substance use type: does not use Meds Home Medications and Allergies Home Medications Medication Instructions Recorded Confirmed Type acetaminophen 500 mg tablet 1,000 mg PO Q6H PRN Pain 06/19/19 04/09/23 History (Tylenol Extra Strength) cephalexin [Keflex] 250 mg PO DAILY 05/19/22 04/09/23 History valacyclovir 500 mg tablet 1,000 mg PO BID PRN cold sores #30 09/24/22 04/09/23 Rx tabs metoprolol succinate 25 mg See Rx Instructions .Route 11/05/22 04/09/23 Rx tablet,extended release 24 hr .COMPLEX #45 tabs pantoprazole 40 mg tablet,delayed See Rx Instructions .Route 11/13/22 04/09/23 Rx release .COMPLEX #90 tabs fluconazole 150 mg tablet 300 mg PO DAILY yeast infections 11/17/22 04/09/23 History Allergies Allergy/AdvReac Type Severity Reaction Status Date / Time iodine Allergy Intermediate HIVES - Verified 04/09/23 13:43 CONTRAST Sulfa (Sulfonamide Allergy Intermediate My finger Verified 04/09/23 13:43 Antibiotics) swelled up NSAIDS (Non-Steroidal AdvReac Severe CKD Stage 3 Verified 04/09/23 13:43 Anti-Inflamma morphine AdvReac Intermediate Nausea/vomi Verified 04/09/23 13:43 ting ciprofloxacin AdvReac Mild intestinal Verified 04/09/23 13:43 cramping esomeprazole AdvReac Mild CONSTIPATIO Verified 04/09/23 13:43 N nitrofurantoin AdvReac Mild rash and Verified 04/09/23 13:43 [From Macrobid] vomiting Exam Vital Signs (past 8 hours): - 04/09/23 13:55 Temperature 97.3 F L Pulse Rate 109 H Respiratory Rate 16 Blood Pressure 140/95 H Pulse Oximetry 97 Oxygen Delivery Method Room Air Oxygen Delivery Method Room Air Const General: cooperative, healthy appearing and comfortable Nutritional Appearance: average body habitus HENMT Head: normal to inspection Eyes General: appearance normal, both eyes and all related structures Resp Effort & Inspection: normal respiratory effort and able to speak in complete sentences GI Palpation: soft and No tender Assessment & Plan Assessment and plan (1) History of colon polyps: Status: Acute (2) Screening for colon cancer: Status: Acute Assessment & Plan narrative: Presents today for screening colonoscopy I discussed the risks benefits and alternatives including but not limited to perforation of the colon and an incomplete exam she fully understands these risks and would like to proceed.
--- NOTE | 2023-04-09 15:44 | PM.OP.COLON ---
Operative Date/Time/Diagnoses Date of procedure: 04/09/23 Time of procedure: 15:44 Pre-op diagnosis: Colon cancer screening, family history of colon cancer Post-op diagnosis: same Procedure & Clinicians Study performed: Colonoscopy Same procedure as scheduled: Yes Indications: Family history of colon cancer, screening Surgeon: Lor Bella Procedure Notes Procedure in detail: Patient was taken to the endoscopy suite and placed in a left lateral decubitus position. A time-out was performed. With the help of anesthesiologist conscious sedation was induced and monitored throughout the case. A digital rectal exam was performed and there were no masses or strictures. The colonoscope was introduced into the anal canal and advanced through to the cecum. A photograph of the appendiceal orifice was obtained. The bowel prep was good [place] bowel prep score of 2. The scope was then withdrawn for a total of 9 minutes and no polyps were seen. The scope was then retroflexed and a photograph of the internal hemorrhoidal piles was obtained. Specimen(s): none sent Complications: none Post-procedure Recommendations: Colonoscopy in 5 years Plan for aftercare: Family history of colon cancer: Recommend 5 year follow-up. Due to symptoms described in history of present illness today I would recommend fiber supplementation.
[2023-04-09 15:50] VITALS: BP 134/93; PULSE 90; RESP 16; TEMP 37.1; O2SAT 99
[2023-04-09 15:55] VITALS: BP 136/99; PULSE 90; RESP 16; O2SAT 98
[2023-04-09 16:03] VITALS: BP 142/98; PULSE 95; RESP 16; TEMP 36.8; O2SAT 99
[2023-04-09 16:06] VITALS: BP 139/99; PULSE 91; RESP 12; TEMP 37.1; O2SAT 99
== END 2023-04-09 16:23 | disposition home or self-care (01) ==
PROVIDERS: PCP Family Medicine; Referring Provider Surgery; Visit Provider Surgery
PROC: 0DJD8ZZ Inspection of Lower Intestinal Tract, Via Natural or Artificial Opening Endoscopic (ICD-10-PCS; CPT 45378; principal; 2023-04-09 14:30)
DX: Z12.11 Encounter for screening for malignant neoplasm of colon (principal); Z80.0 Family history of malignant neoplasm of digestive organs
CPT/HCPCS: 45378; J2704

== ENCOUNTER → 2023-05-24 16:52 | Outpatient (CLI) | payer OTHER, SELFPAY ==
[2021-06-17 10:30] VITALS: BMI 36.7
--- NOTE | 2023-05-24 16:55 | DI.RAD.S_ITS ---
PROCEDURE: XR KUB INDICATIONS: history of renal calculi TECHNIQUE: One view of the abdomen acquired. COMPARISON: [facility], CR, XR KUB, 11/11/2022, 16:38. FINDINGS: Surgical changes and devices: Lumbosacral surgical hardware is present. Bowel: Bowel gas pattern is normal. Soft tissues: No suspicious abdominal calcifications. Visualized solid organ contours appear normal in size. Bones: No suspicious bony lesions. IMPRESSION: Previously visualized pelvic calcifications are no longer seen. Dictated by: Kellie Newman M.D. on 05/25/2023 at 16:00 Approved by: Kellie Newman M.D. on 05/25/2023 at 16:00
== END ==
PROVIDERS: PCP Family Medicine; Referring Provider Urology; Visit Provider Urology
DX: Z87.442 Personal history of urinary calculi (principal); Z09 Encounter for follow-up examination after completed treatment for conditions other than malignant neoplasm
CPT/HCPCS: 74018

== ENCOUNTER → 2023-05-26 07:57 | Outpatient (CLI) | payer OTHER, SELFPAY ==
[2021-06-17 10:30] VITALS: BMI 36.7
== END ==
PROVIDERS: PCP Family Medicine; Visit Provider Urology
DX: N39.0 Urinary tract infection, site not specified (principal); B96.89 Other specified bacterial agents as the cause of diseases classified elsewhere; E83.59 Other disorders of calcium metabolism; N29 Other disorders of kidney and ureter in diseases classified elsewhere; Z87.442 Personal history of urinary calculi
CPT/HCPCS: 81002; 87077; 87086; 87186

== ENCOUNTER → 2023-06-23 07:33 | Outpatient (CLI) | payer OTHER, SELFPAY ==
[2021-06-17 10:30] VITALS: BMI 36.7
--- NOTE | 2023-06-23 | DI.MG.S_ITS ---
BILATERAL DIGITAL SCREENING MAMMOGRAM 3D/2D WITH CAD: 06/23/2023 CLINICAL: Routine screening. Family history of breast cancer. Comparison is made to exams dated: 04/13/2022 mammogram, 04/11/2021 mammogram, 04/09/2020 mammogram, and 01/06/2019 mammogram - [facility]. There are scattered areas of fibroglandular density in both breasts (category b / 25%-50% glandular tissue). Current study was also evaluated with a Computer Aided Detection (CAD) system. No significant masses, calcifications, or other findings are seen in either breast. There has been no significant interval change. IMPRESSION: NEGATIVE There is no mammographic evidence of malignancy. A 1 year screening mammogram is recommended. Based on the Tyrer Cuzick model (a risk assessment model) the patient's lifetime risk is 6.3% and her 10 year risk is 1.7%. According to the ACR, ACS, and NCCN guidelines, an annual breast MRI exam along with mammogram is recommended if the patient's lifetime risk is 20% or greater. This exam was interpreted at Station ID: [id number]. NOTE: For mammograms, a report in lay terms will be sent to the patient. Approximately 15% of breast malignancies will not be visualized mammographically. In the management of a palpable breast mass, a negative mammogram must not discourage biopsy of a clinically suspicious lesion. Electronically Signed By: Jesus wei/govind:06/23/2023 13:13:01 letter sent: Normal Exam ACR BI-RADS Category 1: Negative [id number]
== END ==
PROVIDERS: PCP Family Medicine; Referring Provider Family Medicine; Visit Provider Family Medicine
DX: Z12.31 Encounter for screening mammogram for malignant neoplasm of breast (principal); Z80.3 Family history of malignant neoplasm of breast
CPT/HCPCS: 77063; 77067

== ENCOUNTER → 2023-09-10 08:26 | Outpatient (CLI) | payer OTHER, SELFPAY ==
[2021-06-17 10:30] VITALS: BMI 36.7
[2023-09-10 09:23] LABS: Add Manual Diff / Slide Review NO; Basophils Absolute Auto 0 /uL (0-100); Eosinophils Absolute Auto 100 /uL (0-450); Eosinophils Percent Auto 2.8 % (2-4); Hematocrit 41.2 % (36-46); Hemoglobin 13.5 g/dL (12.0-16.0); Lymphocytes Absolute Auto 500 /uL (1100-4500); Lymphocytes Percent Auto 20.4 % (25-40); Mean Corpuscular HGB Conc 32.9 % (30-36); Mean Corpuscular Hemoglobin 27.8 PG (26-34); Mean Corpuscular Volume 84.4 fL (80-100); Monocytes Absolute Auto 200 /uL (0-900); Monocytes Percent Auto 8.6 % (3-14); Neutrophils Absolute Auto 1700 /uL (1500-7000); Neutrophils Percent Auto 67.2 % (50-75); Platelet Count 165 X10^3/uL (150-400); Red Blood Cell Count 4.88 X10^6/uL (4.0-5.2); Red Cell Distribution Width 14.7 % (11.6-14.8); White Blood Cell Count 2.6 X10^3/uL (4.5-11.0)
[2023-09-10 09:46] LABS: Alanine Aminotransferase 24 IU/L (<35); Albumin Globulin Ratio 1.1 (1.0-2.8); Alkaline Phosphatase 86 U/L (38-126); Aspartate Aminotransferase 26 IU/L (14-36); BUN Creatinine Ratio 20.5 (6-22); Bilirubin Total 0.6 mg/dL (0.2-1.3); Blood Urea Nitrogen 27 mg/dL (7-17); Calcium 9.7 mg/dL (8.4-10.2); Carbon Dioxide 25 mmol/L (22-32); Chloride 108 mmol/L (98-107); Cholesterol 219 mg/dL (140-199); Estimated Glomerular Filt Rate 48 mL/min (>60); Globulin 3.7 g/dL (1.7-4.1); Glucose 113 mg/dL (70-100); HDL Cholesterol 44 mg/dL (40-60); HEMOLYSIS < 15 (0-50); LDL Cholesterol Calculated 148 mg/dL (<100); Potassium 4.5 mmol/L (3.4-5.1); Sodium 138 mmol/L (137-145); Total Protein 7.7 g/dL (6.3-8.2); Triglycerides 136 mg/dL (35-150)
[2023-09-10 09:47] LABS: Creatinine Urine Random 80.4 mg/dL
[2023-09-10 09:50] LABS: Microalbumi Creatinin Ratio Ur 24.8 ug/mg CR (<30)
[2023-09-10 10:00] LABS: Vitamin D 25 Hydroxy (D3) 36.6 ng/mL (30.0-100.0)
[2023-09-10 10:05] LABS: TSH w/ Reflex to FT4 1.86 uIU/mL (0.47-4.68)
[2023-09-11 04:10] LABS: Apolipoprotein B 108 mg/dL (<90)
[2023-09-12 09:36] LABS: Calcium 9.1 mg/dL (8.7-10.2); Parathyroid Hormone, Intact 33 pg/mL (15-65)
== END ==
PROVIDERS: PCP Family Medicine; Referring Provider Family Medicine; Visit Provider Family Medicine
DX: Z00.00 Encounter for general adult medical examination without abnormal findings (principal); E78.5 Hyperlipidemia, unspecified; I10 Essential (primary) hypertension; Q61.5 Medullary cystic kidney; K21.9 Gastro-esophageal reflux disease without esophagitis; N18.30 Chronic kidney disease, stage 3 unspecified; N18.9 Chronic kidney disease, unspecified; D63.1 Anemia in chronic kidney disease; M25.561 Pain in right knee; M25.562 Pain in left knee
CPT/HCPCS: 36415; 80053; 80061; 82043; 82172; 82306; 82310; 82570; 83970; 84443; 85025

== ENCOUNTER → 2023-11-23 14:42 | Outpatient (CLI) | payer OTHER, SELFPAY ==
[2021-06-17 10:30] VITALS: BMI 36.7
--- NOTE | 2023-11-23 14:44 | DI.RAD.S_ITS ---
PROCEDURE: XR KUB INDICATIONS: Renal calculi TECHNIQUE: One view of the abdomen acquired. COMPARISON: [facility], CR, XR KUB, 05/24/2023, 17:11. FINDINGS: Surgical changes and devices: Postfusion changes are noted at L5-S1 level. Bowel: Significant fecal stasis in the colon is seen. No evidence of bowel obstruction or gross free air. Soft tissues: Small calcifications are seen projecting in bilateral renal fossa measures up to 5 mm in size in lower pole right kidney and up to 7 mm in size in upper pole left kidney. Visualized solid organ contours appear normal in size. Bones: No suspicious bony lesions. IMPRESSION: Suggestion of bilateral renal calculi. Moderate constipation. No gross free air. Dictated by: Dusty Monroe M.D. on 11/23/2023 at 16:44 Approved by: Dusty Monroe M.D. on 11/23/2023 at 16:45
== END ==
PROVIDERS: PCP Family Medicine; Referring Provider Urology; Visit Provider Urology
DX: E83.59 Other disorders of calcium metabolism (principal); N29 Other disorders of kidney and ureter in diseases classified elsewhere; K59.00 Constipation, unspecified; Z87.442 Personal history of urinary calculi
CPT/HCPCS: 74018

== ENCOUNTER → 2023-11-24 08:11 | Outpatient (CLI) | payer OTHER, SELFPAY ==
[2021-06-17 10:30] VITALS: BMI 36.7
== END ==
PROVIDERS: PCP Family Medicine; Visit Provider Urology
DX: N39.0 Urinary tract infection, site not specified (principal); B96.89 Other specified bacterial agents as the cause of diseases classified elsewhere; A49.8 Other bacterial infections of unspecified site; Q61.5 Medullary cystic kidney; E83.59 Other disorders of calcium metabolism; N29 Other disorders of kidney and ureter in diseases classified elsewhere; R39.9 Unspecified symptoms and signs involving the genitourinary system; Z87.442 Personal history of urinary calculi
CPT/HCPCS: 81002; 87086

== ENCOUNTER → 2024-05-25 14:31 | Outpatient (CLI) | payer OTHER, SELFPAY ==
[2021-06-17 10:30] VITALS: BMI 36.7
--- NOTE | 2024-05-25 14:32 | DI.RAD.S_ITS ---
PROCEDURE: XR KUB INDICATIONS: kidney stones TECHNIQUE: One view of the abdomen acquired. COMPARISON: [facility], CR, XR KUB, 11/23/2023, 14:00. FINDINGS: Diffuse calcifications are noted bilaterally in the medullary and papillary portions of the kidneys which raise the suspicion for nephrocalcinosis, possible medullary sponge kidney or other process, unchanged. Right kidney lower pole 4 mm calcification unchanged. Postoperative changes of the lower lumbar spine L5-S1 with pedicle screws, posterior fixation rods and intervertebral metallic cage unchanged Pattern of constipation decreased. IMPRESSION: Diffuse calcifications are noted bilaterally in the medullary and papillary portions of the kidneys which raise the suspicion for nephrocalcinosis, possible medullary sponge kidney or other process, unchanged. Right kidney lower pole 4 mm calcification unchanged. If symptoms persist or worsen, or there is high clinical suspicion of acute abnormality, CT could be performed. Dictated by: Deven Bailey M.D. on 05/25/2024 at 15:01 Approved by: Deven Bailey M.D. on 05/25/2024 at 15:05
== END ==
PROVIDERS: PCP Family Medicine; Referring Provider Urology; Visit Provider Urology
DX: E83.59 Other disorders of calcium metabolism (principal); N29 Other disorders of kidney and ureter in diseases classified elsewhere; Z98.1 Arthrodesis status
CPT/HCPCS: 74018

== ENCOUNTER → 2024-05-26 08:16 | Outpatient (CLI) | payer OTHER, SELFPAY ==
[2021-06-17 10:30] VITALS: BMI 36.7
== END ==
PROVIDERS: PCP Family Medicine; Visit Provider Urology
DX: N39.0 Urinary tract infection, site not specified (principal)
CPT/HCPCS: 87077; 87086; 87186

== ENCOUNTER → 2024-09-15 07:06 | Outpatient (CLI) | payer OTHER, SELFPAY ==
[2021-06-17 10:30] VITALS: BMI 36.7
--- NOTE | 2024-09-15 07:07 | DI.MG.S_ITS ---
BILATERAL DIGITAL SCREENING MAMMOGRAM 3D/2D WITH CAD: 09/15/2024 CLINICAL: Routine screening. Family history of breast cancer. Comparison is made to exams dated: 06/23/2023 mammogram, 04/13/2022 mammogram, 04/11/2021 mammogram, and 04/09/2020 mammogram - [facility]. There are scattered areas of fibroglandular density (category b / 25%-50% glandular tissue). Current study was also evaluated with a Computer Aided Detection (CAD) system. No significant masses, calcifications, or other findings are seen in either breast. There has been no significant interval change. IMPRESSION: NEGATIVE There is no mammographic evidence of malignancy. A 1 year screening mammogram is recommended. Based on the Tyrer Cuzick model (a risk assessment model) the patient's lifetime risk is 6.2% and her 10 year risk is 1.8%. According to the ACR, ACS, and NCCN guidelines, an annual breast MRI exam along with mammogram is recommended if the patient's lifetime risk is 20% or greater. This exam was interpreted at Station ID: [id number]. NOTE: For mammograms, a report in lay terms will be sent to the patient. Approximately 15% of breast malignancies will not be visualized mammographically. In the management of a palpable breast mass, a negative mammogram must not discourage biopsy of a clinically suspicious lesion. Electronically Signed By: Jesus wei/govind:09/15/2024 09:04:33 letter sent: Normal Exam ACR BI-RADS Category 1: Negative
[2024-09-15 08:16] LABS: Add Manual Diff / Slide Review NO; Basophils Absolute Auto 0 /uL (0-100); Basophils Percent Auto 1.2 % (0-2); Eosinophils Absolute Auto 100 /uL (0-450); Eosinophils Percent Auto 3.9 % (2-4); Hematocrit 43.1 % (36-46); Hemoglobin 14.1 g/dL (12.0-16.0); Lymphocytes Absolute Auto 700 /uL (1100-4500); Lymphocytes Percent Auto 29.1 % (25-40); Mean Corpuscular HGB Conc 32.7 % (30-36); Mean Corpuscular Hemoglobin 27.8 PG (26-34); Monocytes Absolute Auto 300 /uL (0-900); Monocytes Percent Auto 12.7 % (3-14); Neutrophils Absolute Auto 1200 /uL (1500-7000); Neutrophils Percent Auto 53.1 % (50-75); Platelet Count 168 X10^3/uL (150-400); Red Blood Cell Count 5.07 X10^6/uL (4.0-5.2); Red Cell Distribution Width 14.5 % (11.6-14.8); White Blood Cell Count 2.3 X10^3/uL (4.5-11.0)
[2024-09-15 08:22] LABS: Hemoglobin A1C% w Est Avg Glu 5.9 % (4.0-6.0)
[2024-09-15 08:33] LABS: Alanine Aminotransferase 24 IU/L (<35); Albumin 4.2 g/dL (3.5-5.0); Albumin Globulin Ratio 1.4 (1.0-2.8); Alkaline Phosphatase 101 U/L (38-126); Aspartate Aminotransferase 27 IU/L (14-36); BUN Creatinine Ratio 18.1 (6-22); Bilirubin Total 0.6 mg/dL (0.2-1.3); Blood Urea Nitrogen 26 mg/dL (7-17); Calcium 9.1 mg/dL (8.4-10.2); Carbon Dioxide 21 mmol/L (22-32); Chloride 107 mmol/L (98-107); Cholesterol 145 mg/dL (140-199); Estimated Glomerular Filt Rate 43 mL/min (>60); Glucose 109 mg/dL (70-100); HDL Cholesterol 45 mg/dL (40-60); HEMOLYSIS < 15 (0-50); LDL Cholesterol Calculated 68 mg/dL (<100); Potassium 4.3 mmol/L (3.4-5.1); Sodium 137 mmol/L (137-145); Total Protein 7.2 g/dL (6.3-8.2); Triglycerides 159 mg/dL (35-150)
[2024-09-15 09:04] LABS: TSH w/ Reflex to FT4 3.11 uIU/mL (0.47-4.68)
[2024-09-16 03:09] LABS: Apolipoprotein B 65 mg/dL (<90)
== END ==
PROVIDERS: PCP Family Medicine; Referring Provider Family Medicine; Visit Provider Family Medicine
DX: Z12.31 Encounter for screening mammogram for malignant neoplasm of breast (principal); Z80.3 Family history of malignant neoplasm of breast; I12.9 Hypertensive chronic kidney disease with stage 1 through stage 4 chronic kidney disease, or unspecified chronic kidney disease; N18.30 Chronic kidney disease, stage 3 unspecified; D63.1 Anemia in chronic kidney disease; N25.0 Renal osteodystrophy; E78.5 Hyperlipidemia, unspecified; Q61.5 Medullary cystic kidney
CPT/HCPCS: 36415; 77063; 77067; 80053; 80061; 82172; 83036; 84443; 85025

== ENCOUNTER → 2024-09-20 09:22 | Outpatient (CLI) | payer OTHER, SELFPAY ==
[2021-06-17 10:30] VITALS: BMI 36.7
== END ==
PROVIDERS: PCP Family Medicine; Visit Provider Urology
DX: N39.0 Urinary tract infection, site not specified (principal); B96.89 Other specified bacterial agents as the cause of diseases classified elsewhere
CPT/HCPCS: 87086

== ENCOUNTER → 2024-10-27 09:20 | Outpatient (CLI) | payer OTHER, SELFPAY ==
[2021-06-17 10:30] VITALS: BMI 36.7
== END ==
PROVIDERS: PCP Family Medicine; Visit Provider Urology
DX: N39.0 Urinary tract infection, site not specified (principal); B96.89 Other specified bacterial agents as the cause of diseases classified elsewhere
CPT/HCPCS: 87077; 87086; 87186

== ENCOUNTER → 2024-11-20 16:44 | Outpatient (CLI) | payer OTHER, SELFPAY ==
[2021-06-17 10:30] VITALS: BMI 36.7
--- NOTE | 2024-11-20 16:50 | DI.RAD.S_ITS ---
PROCEDURE: XR KUB INDICATIONS: Follow-up nephrocalcinosis TECHNIQUE: One view of the abdomen acquired. COMPARISON: [facility], CR, XR KUB, 05/25/2024, 13:38. FINDINGS: Stool gas pattern: Normal-no evidence of ileus or obstruction. Small rounded gas collection overlies the liver. No gross evidence of ascites Soft tissues: There are multiple small calcifications overlying each kidney more prominent the left. These are greater than 20 in number. They ranging up to 6 millimeters. Some or all could represent stones No soft tissue masses. Organs: No gross evidence for organomegaly. IMPRESSION: Multiple tiny calcifications overlying both kidneys. Exact location is indeterminate. One or more could could represent stones. If more precise diagnosis is required, suggest abdomen and pelvic CT Dictated by: Pete Lara M.D. on 11/21/2024 at 9:54 Approved by: Pete Lara M.D. on 11/21/2024 at 9:57
[2024-11-20 17:36] LABS: Appearance Urine UA CLEAR; Bilirubin Urine UA NEGATIVE (NEGATIVE); Color Urine UA YELLOW; Glucose Urine UA NEGATIVE (Negative); Ketones Urine UA NEGATIVE (NEGATIVE); Leukocyte Esterase Urine UA 1+ (NEGATIVE); Nitrite Urine UA NEGATIVE (Negative); Occult Blood Urine UA NEGATIVE (Negative); Protein Urine UA NEGATIVE (Negative); Specific Gravity Urine UA <=1.005 (1.000-1.035); Urobilinogen Urine UA 0.2 E.U./dL (0.2); pH Urine UA 5.5 (4.5-8.0)
[2024-11-20 17:45] LABS: Bacteria Urine Occasional (0-1); Culture Indicated Urine Specimen Cultured; RBC Urine 0-1/HPF (0-5/HPF); Squamous Epithelial Cell Urine 0-1 /HPF (0-5/HPF); Urine Volume 10mL (spun); WBC Urine 10-30/HPF (0-5/HPF)
[2024-11-20 18:08] LABS: Creatinine Urine Random 38.61 mg/dL
[2024-11-20 18:14] LABS: Microalbumin Urine Random 1.1 mg/dL (0-1.6)
== END ==
PROVIDERS: PCP Family Medicine; Referring Provider Internal Medicine Infectious Disease; Visit Provider Internal Medicine Infectious Disease
DX: Z00.00 Encounter for general adult medical examination without abnormal findings (principal); I12.9 Hypertensive chronic kidney disease with stage 1 through stage 4 chronic kidney disease, or unspecified chronic kidney disease; N18.30 Chronic kidney disease, stage 3 unspecified; D63.1 Anemia in chronic kidney disease; E78.5 Hyperlipidemia, unspecified; E83.59 Other disorders of calcium metabolism; N25.0 Renal osteodystrophy; N29 Other disorders of kidney and ureter in diseases classified elsewhere; Q61.5 Medullary cystic kidney; N39.0 Urinary tract infection, site not specified; A49.8 Other bacterial infections of unspecified site; Z87.442 Personal history of urinary calculi
CPT/HCPCS: 74018; 81001; 82043; 82570; 87077; 87086; 87186

== ENCOUNTER → 2024-11-22 08:17 | Outpatient (CLI) | payer OTHER, SELFPAY ==
[2021-06-17 10:30] VITALS: BMI 36.7
== END ==
PROVIDERS: PCP Family Medicine; Visit Provider Urology
DX: N39.0 Urinary tract infection, site not specified (principal); R39.14 Feeling of incomplete bladder emptying; R33.9 Retention of urine, unspecified; N95.2 Postmenopausal atrophic vaginitis; E83.59 Other disorders of calcium metabolism; N29 Other disorders of kidney and ureter in diseases classified elsewhere; Q61.5 Medullary cystic kidney; Z68.41 Body mass index [BMI] 40.0-44.9, adult
CPT/HCPCS: 51798; 81002; 87077; 87086; 87186

== ENCOUNTER → 2024-12-12 16:18 | Outpatient (CLI) | payer OTHER, SELFPAY ==
[2021-06-17 10:30] VITALS: BMI 36.7
== END ==
PROVIDERS: PCP Family Medicine; Visit Provider Urology
DX: N95.2 Postmenopausal atrophic vaginitis (principal); N39.0 Urinary tract infection, site not specified; N29 Other disorders of kidney and ureter in diseases classified elsewhere; E83.59 Other disorders of calcium metabolism; R33.9 Retention of urine, unspecified
CPT/HCPCS: 51798; 81002; 87077; 87086; 87186; 99213

== ENCOUNTER → 2025-08-15 06:59 | Outpatient (CLI) | payer OTHER, SELFPAY ==
[2021-06-17 10:30] VITALS: BMI 36.7
[2025-08-15 07:39] LABS: Microalbumi Creatinin Ratio Ur 74.0 ug/mg CR (<30)
[2025-08-15 07:41] LABS: Add Manual Diff / Slide Review NO; Hematocrit 40.9 % (36-46); Hemoglobin 13.6 g/dL (12.0-16.0); Lymphocytes Absolute Auto 700 /uL (1100-4500); Mean Corpuscular HGB Conc 33.1 % (30-36); Mean Corpuscular Hemoglobin 27.0 PG (26-34); Mean Corpuscular Volume 81.5 fL (80-100); Platelet Count 160 X10^3/uL (150-400)
[2025-08-15 08:07] LABS: Alanine Aminotransferase 19 IU/L (<35); Albumin 4.1 g/dL (3.5-5.0); Albumin Globulin Ratio 1.3 (1.0-2.8); Alkaline Phosphatase 89 U/L (38-126); Blood Urea Nitrogen 27 mg/dL (7-17); Calcium 9.1 mg/dL (8.4-10.2); Carbon Dioxide 23 mmol/L (22-32); Chloride 108 mmol/L (98-107); Cholesterol 116 mg/dL (140-199); Estimated Glomerular Filt Rate 57 mL/min (>60); Globulin 3.1 g/dL (1.7-4.1); Glucose 107 mg/dL (70-99); HDL Cholesterol 44 mg/dL (40-60); HEMOLYSIS < 15 (0-50); Potassium 4.4 mmol/L (3.4-5.1); Sodium 140 mmol/L (137-145); Total Protein 7.2 g/dL (6.3-8.2); Triglycerides 146 mg/dL (35-150)
[2025-08-15 08:33] LABS: TSH w/ Reflex to FT4 3.08 uIU/mL (0.47-4.68)
== END ==
PROVIDERS: PCP Family Medicine; Referring Provider Family Medicine; Visit Provider Family Medicine
DX: G47.33 Obstructive sleep apnea (adult) (pediatric) (principal); N95.2 Postmenopausal atrophic vaginitis; R33.9 Retention of urine, unspecified; E83.59 Other disorders of calcium metabolism; N29 Other disorders of kidney and ureter in diseases classified elsewhere
CPT/HCPCS: 36415; 80053; 80061; 82043; 82172; 82570; 84443; 85025